=== PATIENT | female | born 1990 | race African-American/Black ===

== ENCOUNTER 2017-12-23 15:06 | Emergency (ER) | payer OTHER ==
[2017-12-23] MEDS ORDERED: ONDANSETRON 4 MG (ODT) TAB ONE (16:12)
[2017-12-23] MEDS ORDERED: IBUPROFEN 400 MG TAB ONE ×2 (16:12)
[2017-12-23 16:30] LABS: Urine Blood 1+ (NEG); Urine Glucose NEGATIVE (NEG); Urine Protein NEGATIVE (NEG); Urine Specific Gravity 1.025 (1.005-1.030)
[2017-12-23] MEDS ORDERED: DEXAMETHASONE 10 MG/ML VIAL ONE (17:15)
[2017-12-23] MEDS ORDERED: PROMETHAZINE 25 MG TABLET ONE (17:40)
--- NOTE | 2017-12-23 18:16 | ER ---
Nurse's Notes [facility] Name: Ritu Fallon Age: 27 yrs Sex: Female : 1990 Arrival Date: 12/23/2017 Time: 15:07 Bed 14 Private MD: Diagnosis: Acute pharyngitis;Cough Presentation: 12/23 15:23 Presenting complaint: Patient states: " I have been feeling really bad, I have been ph throwing up and I can't keep anything down, my throat feels swollen and I have had a bad cough.". Transition of care: patient was not received from another setting of care. Onset of symptoms was December 23, 2017. Care prior to arrival: None. 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 - Social history:: Smoking status: Patient uses tobacco products. Screenin:45 Abuse screen: Denies threats or abuse. Denies injuries from another. Nutritional aj1 screening: No deficits noted. Tuberculosis screening: No symptoms or risk factors identified. 18:29 Fall Risk None identified. aj1 Assessment: 15:45 General: Appears in no apparent distress. uncomfortable, Behavior is calm, cooperative. aj1 Pain: Complains of pain in left aspect of posterior pharynx and right aspect of posterior pharynx generalized body aches. Neuro: Level of Consciousness is awake, alert, obeys commands, Oriented to person, place, time, situation, Speech is normal, Facial symmetry appears normal. Cardiovascular: Patient's skin is warm and dry. Respiratory: Reports cough that is persistent Airway is patent Respiratory effort is even, unlabored, Respiratory pattern is regular, symmetrical, Breath sounds are clear bilaterally. GI: Abdomen is non-distended, Abd is soft X 4 quads Reports nausea, vomiting. : No signs and/or symptoms were reported regarding the genitourinary system. EENT: Reports sore throat. Derm: No signs and/or symptoms reported regarding the dermatologic system. Skin is pink, warm \\T\\ dry. normal. Musculoskeletal: No signs and/or symptoms reported regarding the musculoskeletal system. Circulation, motion, and sensation intact. 16:45 Reassessment: Patient appears in no apparent distress at this time. No changes from 1 previously documented assessment. Patient and/or family updated on plan of care and expected duration. Pain level reassessed. Patient is alert, oriented x 3, equal unlabored respirations, skin warm/dry/pink. 17:23 Reassessment: Patient appears in no apparent distress at this time. No changes from aj1 previously documented assessment. Patient and/or family updated on plan of care and expected duration. Pain level reassessed. Patient is alert, oriented x 3, equal unlabored respirations, skin warm/dry/pink. 18:28 Reassessment: Patient appears in no apparent distress at this time. No changes from aj1 previously documented assessment. Patient and/or family updated on plan of care and expected duration. Pain level reassessed. Patient is alert, oriented x 3, equal unlabored respirations, skin warm/dry/pink. Vital Signs: 15:24 Pulse 106; Resp 22; Temp 100.3; Pulse Ox 99% on R/A; Weight 129.27 kg; Pain 8/10; ph 17:44 BP 137 / 99; Pulse 95; Resp 18; Pulse Ox 97% on R/A; aj1 18:28 BP 135 / 72; Pulse 92; Resp 18; Temp 98.9; Pulse Ox 99% ; aj1 ED Course: 15:07 Patient arrived in ED. as 15:24 Triage completed. ph 15:26 Arm band placed on. ph 15:30 Doug Murrell NP is PHCP. pm1 15:30 Mamadou Pang MD is Attending Physician. pm1 15:38 Anu Marshall RN is Primary Nurse. aj1 15:45 Patient has correct armband on for positive identification. Bed in low position. Call [facility] light in reach. Side rails up X 1. 15:45 No provider procedures requiring assistance completed. aj1 16:07 Flu and/or RSV swab sent to lab. Strep swab sent to lab. dh3 16:19 Urine collected: clean catch specimen. dh3 18:29 Patient did not have IV access during this emergency room visit. aj1 Administered Medications: 16:15 Drug: Ibuprofen 800 mg Route: PO; aj1 17:22 Follow up: Response: No adverse reaction aj1 16:15 Drug: Zofran 4 mg Route: PO; aj1 17:22 Follow up: Response: No adverse reaction aj1 17:22 Drug: Decadron 10 mg Route: IM; Site: left deltoid; aj1 17:41 Follow up: Response: No adverse reaction aj1 17:41 Drug: Phenergan 25 mg Route: PO; aj1 18:30 Follow up: Response: No adverse reaction aj1 Outcome: 18:16 Discharge ordered by . pm1 18:30 Discharged to home ambulatory. aj1 18:30 Condition: good 18:30 Discharge instructions given to patient, Instructed on discharge instructions, follow up and referral plans. medication usage, Demonstrated understanding of instructions, follow-up care, medications, Prescriptions given X 3. 18:31 Patient left the ED. aj1 Signatures: Anu Marshall RN RN aj1 Alecia Eli Patricia, RN RN ph Marinas, Patrick, SARAY PROMOTIONS REPRESENTATIVE pm1 Marion Woodward 3
--- NOTE | 2017-12-23 18:17 | EDPHYS ---
Physician Documentation [facility] Name: Ritu Fallon Age: 27 yrs Sex: Female : 1990 Arrival Date: 12/23/2017 Time: 15:07 Bed 14 Private MD: ED Physician Mamadou Pang HPI: 12/23 17:00 This 27 yrs old Black Female presents to ER via Ambulatory with complaints of Sore pm1 throat, Cough, Vomiting. 17:00 The patient presents with sore throat. The patient describes throat pain as constant, pm1 scratchy. 17:00 Onset: The symptoms/episode began/occurred 2 day(s) ago. Severity of symptoms: in the pm1 emergency department the symptoms are actually worse. Modifying factors: The symptoms are alleviated by nothing, the symptoms are aggravated by fluids, foods, swallowing, Denies contact with similarly ill indivduals. Associated signs and symptoms: Pertinent positives: cough, fever, flu-like symptoms, Sore throat vomiting, Pertinent negatives chest pain, diarrhea, earache, shortness of breath. The patient has experienced similar episodes in the past, multiple times. The patient has not recently seen a physician. 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 - Social history:: Smoking status: Patient uses tobacco products. ROS: 17:00 Constitutional: Negative for fever, chills, and weight loss, Eyes: Negative for injury, pm1 pain, redness, and discharge. 17:00 Neck: Negative for injury, pain, and swelling, Cardiovascular: Negative for chest pain, palpitations, and edema. 17:00 Back: Negative for injury and pain. 17:00 : Negative for injury, bleeding, discharge, and swelling, MS/Extremity: Negative for injury and deformity, Skin: Negative for injury, rash, and discoloration, Neuro: Negative for headache, weakness, numbness, tingling, and seizure. 17:00 ENT: Positive for sore throat, Negative for ear pain, rhinorrhea, sinus congestion, sinus pain, difficulty swallowing, difficulty handling secretions, hoarseness. 17:00 Respiratory: Positive for cough, Negative for shortness of breath, sputum production, wheezing. 17:00 Abdomen/GI: Positive for vomiting, Negative for abdominal pain, diarrhea, constipation. Exam: 17:00 Constitutional: This is a well developed, well nourished patient who is awake, alert, pm1 and in no acute distress. Head/Face: Normocephalic, atraumatic. Eyes: Pupils equal round and reactive to light, extra-ocular motions intact. Lids and lashes normal. Conjunctiva and sclera are non-icteric and not injected. Cornea within normal limits. Periorbital areas with no swelling, redness, or edema. 17:00 Neck: Trachea midline, no thyromegaly or masses palpated, and no cervical lymphadenopathy. Supple, full range of motion without nuchal rigidity, or vertebral point tenderness. No Meningismus. Chest/axilla: Normal chest wall appearance and motion. Nontender with no deformity. No lesions are appreciated. Cardiovascular: Regular rate and rhythm with a normal S1 and S2. No gallops, murmurs, or rubs. Normal PMI, no JVD. No pulse deficits. Respiratory: Lungs have equal breath sounds bilaterally, clear to auscultation and percussion. No rales, rhonchi or wheezes noted. No increased work of breathing, no retractions or nasal flaring. Abdomen/GI: Soft, non-tender, with normal bowel sounds. No distension or tympany. No guarding or rebound. No evidence of tenderness throughout. Back: No spinal tenderness. No costovertebral tenderness. Full range of motion. Skin: Warm, dry with normal turgor. Normal color with no rashes, no lesions, and no evidence of cellulitis. MS/ Extremity: Pulses equal, no cyanosis. Neurovascular intact. Full, normal range of motion. 17:00 ENT: External ear(s): are unremarkable, Ear canal(s): are normal, TM's: are normal, Nose: is normal, Mouth: is normal, Posterior pharynx: Airway: normal, no evidence of obstruction, patent, Tonsils: bilaterally enlarged, with erythema, no exudate, no ulcerations, peritonsillar mass, is not appreciated, pooling of secretions, is not appreciated. 17:00 Neuro: Orientation: is normal, Motor: is normal, moves all fours. Vital Signs: 15:24 Pulse 106; Resp 22; Temp 100.3; Pulse Ox 99% on R/A; Weight 129.27 kg; Pain 8/10; ph 17:44 BP 137 / 99; Pulse 95; Resp 18; Pulse Ox 97% on R/A; aj1 18:28 BP 135 / 72; Pulse 92; Resp 18; Temp 98.9; Pulse Ox 99% ; aj1 MDM: 15:30 Patient medically screened. pm1 17:10 Data reviewed: vital signs. Data interpreted: Pulse oximetry: on room air is 99 %. pm1 Interpretation: normal. Counseling: I had a detailed discussion with the patient and/or guardian regarding: lab results. 17:10 ED course: Patient reports that she typically gets bronchitis around this time of year pm1 and is prescribed cough medications and antibiotics. If her symptoms do not improve after the medications, she follows up with her PCP. 18:14 Counseling: I had a detailed discussion with the patient and/or guardian regarding: the pm1 historical points, exam findings, and any diagnostic results supporting the discharge/admit diagnosis, the need for outpatient follow up, to return to the emergency department if symptoms worsen or persist or if there are any questions or concerns that arise at home. 12/23 15:48 Order name: Flu; Complete Time: 17:04 pm1 12/23 15:48 Order name: Strep; Complete Time: 17:04 pm1 12/23 16:20 Order name: Urine Dipstick--Ancillary (enter results); Complete Time: 17:04 ag 12/23 16:20 Order name: Urine --Ancillary (enter results); Complete Time: 17:04 ag 12/23 16:29 Order name: Throat Culture [facility] 12/23 15:48 Order name: Urine Dipstick-Ancillary (obtain specimen); Complete Time: 16:20 pm1 12/23 15:48 Order name: Urine Test (obtain specimen); Complete Time: 16:20 pm1 12/23 17:10 Order name: PO challenge; Complete Time: 17:22 pm1 Administered Medications: 16:15 Drug: Ibuprofen 800 mg Route: PO; aj1 17:22 Follow up: Response: No adverse reaction aj1 16:15 Drug: Zofran 4 mg Route: PO; aj1 17:22 Follow up: Response: No adverse reaction aj1 17:22 Drug: Decadron 10 mg Route: IM; Site: left deltoid; aj1 17:41 Follow up: Response: No adverse reaction aj1 17:41 Drug: Phenergan 25 mg Route: PO; aj1 18:30 Follow up: Response: No adverse reaction aj1 Disposition: 12/23/17 18:16 Discharged to Home. Impression: Acute pharyngitis, Cough. - Condition is Stable. - Discharge Instructions: Pharyngitis, Salt Water Gargle, Cough, Adult. - Prescriptions for Amoxicillin 500 mg Oral Capsule - take 1 capsule by ORAL route every 8 hours for 10 days; 30 tablet. Tessalon Perles 100 mg Oral Capsule - take 1 capsule by ORAL route every 8 hours As needed; 15 capsule. promethazine 25 mg Oral Tablet - take 1 tablet by ORAL route every 6 hours As needed; 20 tablet. - Medication Reconciliation Form, Thank You Letter, Antibiotic Education form. - Follow up: Emergency Department; When: As needed; Reason: Worsening of condition. Follow up: Private Physician; When: 2 - 3 days; Reason: Recheck today's complaints, Continuance of care, Re-evaluation by your physician. - Problem is new. - Symptoms have improved. Addendum: 12/25/2017 07:37 Co-signature as Attending Physician, Mamadou Pang MD I agree with the assessment and w a plan of care. Signatures: Dispatcher [employer] Anu Castro RN RN aj1 Arabella Padilla RN RN ph Marinas, Patrick, QC LAB TECHNICIAN QC LAB TECHNICIAN pm1 Mamadou Pang MD MD sd
[2017-12-23 18:38] VITALS: BP 135/72; TEMP 98.9; O2SAT 99
== END 2017-12-23 18:31 | disposition home or self-care (01) ==
LOC: ER 15:06
DX: R05 Cough (principal); Z72.0 Tobacco use; Z88.5 Allergy status to narcotic agent; Z91.048 Other nonmedicinal substance allergy status
CPT/HCPCS: 81003; 81025; 87070; 87081; 87804; 96372; 99283; J1100

== ENCOUNTER 2018-05-27 08:12 | Emergency (ER) | payer OTHER ==
--- NOTE | 2018-05-27 08:37 | ER ---
Nurse's Notes [facility] Name: Ritu Fallon Age: 28 yrs Sex: Female : 1990 Arrival Date: 05/27/2018 Time: 08:14 Bed 20 Private MD: Out, [facility] Diagnosis: Conjunctivitis Presentation: 05/27 08:30 Presenting complaint: Patient states: C/O jasmeet eye swelling x 2 days, also reports ph sensitivity to light, denies fever or drainage, states that son was dx w/ pink eye recently. Transition of care: patient was not received from another setting of care. Onset of symptoms was May 27, 2018. Risk Assessment: Do you want to hurt yourself or someone else? Patient reports no desire to harm self or others. Initial Sepsis Screen: Does the patient meet any 2 criteria? No. Patient's initial sepsis screen is negative. Does the patient have a suspected source of infection? No. Patient's initial sepsis screen is negative. Care prior to arrival: None. 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 - Social history:: Smoking status: Patient uses tobacco products, smokes one-half pack cigarettes per day. - Family history:: not pertinent. - Ebola Screening: : No symptoms or risks identified at this time. - Hospitalizations: : No recent hospitalization is reported. Screenin:35 Abuse screen: Denies threats or abuse. Denies injuries from another. Nutritional ph screening: No deficits noted. Tuberculosis screening: No symptoms or risk factors identified. Fall Risk None identified. Assessment: 08:36 General: Appears in no apparent distress. uncomfortable, obese, well groomed, Behavior ph is calm, cooperative, appropriate for age. Pain: Complains of pain in right eye and left eye. Neuro: Level of Consciousness is awake, alert, obeys commands, Oriented to person, place, time, situation. Cardiovascular: Capillary refill < 3 seconds Patient's skin is warm and dry. Respiratory: Airway is patent. GI: No signs and/or symptoms were reported involving the gastrointestinal system. EENT: Lid(s) swelling noted to jasmeet upper lids. Reports photophobia Denies blurred vision. Derm: Skin is intact, is healthy with good turgor, Skin is pink, warm \T\ dry. Musculoskeletal: Circulation, motion, and sensation intact. Range of motion: intact in all extremities. Vital Signs: 08:33 BP 134 / 95; Pulse 94; Resp 18; Temp 98.2; Pulse Ox 100% on R/A; Weight 90.72 kg; ph Height 5 ft. 7 in. (170.18 cm); 08:33 Body Mass Index 31.32 (90.72 kg, 170.18 cm) ph ED Course: 08:14 Patient arrived in ED. sb2 08:15 Out, of [facility] is Private Physician. sb2 08:25 Viktor Bardales MD is Attending Physician. rn 08:30 Arabella Padilla RN is Primary Nurse. ph 08:33 Triage completed. ph 08:35 Patient has correct armband on for positive identification. Bed in low position. Call ph light in reach. 08:35 Arm band placed on. ph 08:49 No provider procedures requiring assistance completed. Patient did not have IV access ph during this emergency room visit. Administered Medications: No medications were administered Outcome: 08:37 Discharge ordered by . rn 08:49 Discharged to home ambulatory. ph 08:49 Condition: good 08:49 Discharge instructions given to patient, Instructed on discharge instructions, follow up and referral plans. medication usage, Demonstrated understanding of instructions, follow-up care, medications. 08:50 Patient left the ED. ph Signatures: Viktor Bardales MD MD rn Hall, Patricia, RN RN Marine Isaac sb2
--- NOTE | 2018-05-27 08:37 | EDPHYS ---
Physician Documentation [facility] Name: Ritu Fallon Age: 28 yrs Sex: Female : 1990 Arrival Date: 05/27/2018 Time: 08:14 Bed 20 Private MD: Out, [facility] ED Physician Viktor Bardales HPI: 05/27 08:29 This 28 yrs old Black Female presents to ER via Unassigned with complaints of Eye rn Problem. 08:29 The patient is experiencing pain, tearing. Onset: The symptoms/episode began/occurred rn yesterday. Duration: the symptoms are continuous. Aggravated by nothing. Alleviated by nothing. Severity of symptoms: At their worst the symptoms were mild in the emergency department the symptoms are unchanged. The patient has experienced similar episodes in the past. Reports son has pink eye, being treated, now having redness and swelling of both eyes, sensitive to light, no fever, has had bronchitis for 1 month, + smoker. . 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 - Social history:: Smoking status: Patient uses tobacco products, smokes one-half pack cigarettes per day. - Family history:: not pertinent. - Ebola Screening: : No symptoms or risks identified at this time. - Hospitalizations: : No recent hospitalization is reported. ROS: 08:29 Constitutional: Negative for fever, chills, and weight loss, Eyes: + pain and redness rn with discharge ENT: Negative for injury, pain, and discharge, Neck: Negative for injury, pain, and swelling, Cardiovascular: Negative for chest pain, palpitations, and edema, Respiratory: + cough, no sob Abdomen/GI: Negative for abdominal pain, nausea, vomiting, diarrhea, and constipation, Neuro: Negative for headache, weakness, numbness, tingling, and seizure. Exam: 08:29 Visual Acuity: I have reviewed the nursing documentation. Visual acuity is within rn normal limits. 08:29 Constitutional: This is a well developed, well nourished patient who is awake, alert, and in no acute distress. Head/Face: Normocephalic, atraumatic. Eyes: Pupils equal round and reactive to light, extra-ocular motions intact. Mild edema of bilteral upper lids with mild injected sclera, no corneal defects. Vital Signs: 08:33 BP 134 / 95; Pulse 94; Resp 18; Temp 98.2; Pulse Ox 100% on R/A; Weight 90.72 kg; ph Height 5 ft. 7 in. (170.18 cm); 08:33 Body Mass Index 31.32 (90.72 kg, 170.18 cm) ph MDM: 08:25 Patient medically screened. rn 08:29 Differential diagnosis: Data reviewed: vital signs, nurses notes, and as a result, I rn will discharge patient. Counseling: I had a detailed discussion with the patient and/or guardian regarding: the historical points, exam findings, and any diagnostic results supporting the discharge/admit diagnosis, the need for outpatient follow up, to return to the emergency department if symptoms worsen or persist or if there are any questions or concerns that arise at home. Special discussion: I discussed with the patient/guardian in detail that at this point there is no indication for admission to the hospital. It is understood, however, that if the symptoms persist or worsen the patient needs to return immediately for re-evaluation. Administered Medications: No medications were administered Disposition: 05/27/18 08:37 Discharged to Home. Impression: Conjunctivitis. - Condition is Stable. - Discharge Instructions: Bacterial Conjunctivitis, Viral Conjunctivitis. - Prescriptions for Erythromycin 5 mg/gram (0.5 %) Ophthalmic Ointment - apply 1 centimeter by OPHTHALMIC route 2-3 times daily for 7 days; 1 tube. - Medication Reconciliation Form, Thank You Letter, Antibiotic Education, Prescription Opioid Use, Work release form form. - Follow up: Private Physician; When: As needed; Reason: Recheck today's complaints, Re-evaluation by your physician. - Problem is new. - Symptoms are unchanged. Signatures: Viktor Bardales MD MD rn Hall, Patricia, RN RN ph Corrections: (The following items were deleted from the chart) 08:50 08:37 05/27/2018 08:37 Discharged to Home. Impression: Conjunctivitis. Condition is ph Stable. Forms are Medication Reconciliation Form, Thank You Letter, Antibiotic Education, Prescription Opioid Use. Follow up: Private Physician; When: As needed; Reason: Recheck today's complaints, Re-evaluation by your physician. Problem is new. Symptoms are unchanged. rn
[2018-05-27 08:56] VITALS: BP 134/95; TEMP 98.2; O2SAT 100
== END 2018-05-27 08:50 | disposition home or self-care (01) ==
LOC: ER 08:12
DX: H10.9 Unspecified conjunctivitis (principal); I10 Essential (primary) hypertension; F17.210 Nicotine dependence, cigarettes, uncomplicated; Z88.5 Allergy status to narcotic agent; Z91.048 Other nonmedicinal substance allergy status
CPT/HCPCS: 99281

== ENCOUNTER 2019-10-09 16:32 | Emergency (ER) | payer OTHER, SELFPAY ==
--- OUTSIDE RECORDS SUMMARY | 2019-10-09 16:34 | XMS REPORT ---
:1990 Author Organization [facility] Address [address] [place] [address] Dr. Nelson [address] [place] [id number] Care Team Providers Name Role Phone Unavailable Unavailable Unavailable Problems This patient has no known problems. Allergies, Adverse Reactions, Alerts This patient has no known allergies or adverse reactions. Medications This patient has no known medications.
--- OUTSIDE RECORDS SUMMARY | 2019-10-09 16:34 | XMS REPORT | Summary of Care ---
:1990 Author Organization [facility] - Health Address [address] [place] [address] Care Team Providers Name Role Phone Mike Carlos Miranda [facility] Primary Care Provider Encounter Details Date Type Department Care Team Description 04/13/2019 Orders Only [facility] Doctor Unassigned, No [address] [facility] [place] [address] [address] [place] [id number] Allergies Active Allergy Reactions Severity Noted Date Comments Iodine Swelling 08/15/2013 documented as of this encounter (statuses as of 04/13/2019) Medications Medication Sig Dispensed Refills Start Date End Date Status CALCIUM CARBONATE Take by mouth. 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 Depo-Provera contraceptive status 09/17/2014 Essential hypertension, benign 09/17/2014 Depression 09/17/2014 Dysmenorrhea 09/17/2014 Obesity, morbid (more than 100 lbs over ideal weight or BMI > 40) 08/15/2013 Tobacco use disorder 08/15/2013 documented as of this encounter (statuses as of 04/13/2019) Resolved Problems Problem Noted Date Resolved Date Rubella immune 08/18/2013 09/17/2014 documented as of this encounter (statuses as of 04/13/2019) Immunizations Name Administration Dates Next Due HPV 08/29/2014 Td 09/14/2002 Tdap 08/15/2013 documented as of this encounter Social History Tobacco Use Types Packs/Day Years Used Date Current Every Day Smoker Cigarettes 0.5 1 Smokeless Tobacco: Never Used Alcohol Use Drinks/Week oz/Week Comments Yes socially Sex Assigned at Date Recorded Not on file Job Start Date Occupation Industry Not on file Not on file Not on file Travel History Travel Start Travel End No recent travel history available. documented as of this encounter Last Filed Vital Signs Not on filedocumented in this encounter Plan of Treatment Date Type Specialty Care Team Description 04/13/2019 Office Visit [facility] Carlos Mckeon, ASP NET DEVELOPER [address] [place] [address] [phone] Arrived 4, [facility] Health Maintenance Due Date Last Done Comments VARICELLA VACCINES (1 of 2 - 2002 13+ 2-dose series) PAP SMEAR 08/15/2016 08/15/2013 INFLUENZA VACCINE 05/15/2019 DTaP,Tdap,and Td Vaccines (3 08/15/2023 08/15/2013, - Td) 09/14/2002 PNEUMOCOCCAL 0-64 YEARS Aged Out No longer eligible based COMBINED SERIES on patient's age to complete this topic documented as of this encounter Procedures Procedure Name Priority Date/Time Associated Diagnosis Comments NOTICE OF PRIVACY Routine 04/13/2019 9:38 AM CDT PRACTICES documented in this encounter Results Not on filedocumented in this encounter Insurance Payer Benefit Plan / Subscriber ID Effective Dates Phone Address Type Group [place] [facility] [place] CH[place]DRENS xxxxxxxxx 2015-Presen Medicaid HEALTH PLAN - [employer] MANAGED MEDICAID documented as of this encounter
--- OUTSIDE RECORDS SUMMARY | 2019-10-09 16:35 | XMS REPORT | Summary of Care ---
:1990 Author Organization [facility] Address [address] [place] [address] Care Team Providers Name Role Phone Carlos Mckeon AEROLOGIST Primary Care Provider Reason for Referral Radiology Services (Routine) Status Reason Specialty Diagnoses / Referred By Referred To Procedures Contact Contact New Request Diagnostic Diagnoses Nipple discharge Mike, Radiology Procedures BI ULTRASOUND BREAST COMPLETE RIGHT Carlos Miranda, AEROLOGIST [address] [place] [address] Reason for Visit Reason Comments Orders Right Breast USG Encounter Details Date Type Department Care Team Description 04/28/2019 Case Management [facility]- Carlos Mckeon Orders ( Right Breast [place] Ruth, AEROLOGIST USG) [address] [facility] [address] [facility] [address] [place], [place] [id number] Allergies Active Allergy Reactions Severity Noted Date Comments Iodine Swelling 08/15/2013 documented as of this encounter (statuses as of 04/28/2019) Medications Medication Sig Dispensed Refills Start Date End Date Status CALCIUM CARBONATE Take by mouth. 0 Active (CALCIUM 600 ORAL) documented as of this encounter (statuses as of 04/28/2019) Active Problems Problem Noted Date Need for HPV vaccination 09/17/2014 Encounter for routine gynecological examination 09/17/2014 Overview: ICD10 Diagnosis Term Vice President Quality Utility General counseling and advice for contraceptive management 09/17/2014 Overview: ICD10 Diagnosis Term Vice President Quality Utility Depo-Provera contraceptive status 09/17/2014 Essential hypertension, benign 09/17/2014 Depression 09/17/2014 Dysmenorrhea 09/17/2014 Obesity, morbid (more than 100 lbs over ideal weight or BMI > 40) 08/15/2013 Tobacco use disorder 08/15/2013 documented as of this encounter (statuses as of 04/28/2019) Resolved Problems Problem Noted Date Resolved Date Rubella immune 08/18/2013 09/17/2014 documented as of this encounter (statuses as of 04/28/2019) Immunizations Name Administration Dates Next Due HPV 08/29/2014 Td 09/14/2002 Tdap 08/15/2013 documented as of this encounter Social History Tobacco Use Types Packs/Day Years Used Date Current Every Day Smoker Cigarettes 0.5 1 Started: 04/13/2014 Smokeless Tobacco: Never Used Alcohol Use Drinks/Week oz/Week Comments Yes socially Alcohol Habits Answer Date Recorded How often do you have a drink containing alcohol? Not asked How many drinks containing alcohol do you have on a typical 1 or 2 04/13/2019 day when you are drinking? How often do you have six or more drinks on one occasion? Not asked Sex Assigned at Date Recorded Not on file Job Start Date Occupation Industry Not on file Not on file Not on file Travel History Travel Start Travel End No recent travel history available. documented as of this encounter Last Filed Vital Signs Not on filedocumented in this encounter Plan of Treatment Name Type Priority Associated Diagnoses Order Schedule BI ULTRASOUND BREAST IMAGING Routine Nipple discharge Expected: 04/28/2019, COMPLETE RIGHT Expires: 06/28/2020 Health Maintenance Due Date Last Done Comments PNEUMOCOCCAL 0-64 YEARS COMBINED SERIES (1 1995 of 1 - PPSV23) VARICELLA VACCINES (1 of 2 - 13+ 2-dose 2002 series) PAP SMEAR 08/15/2016 08/15/2013 INFLUENZA VACCINE (#1) 2019 DTaP,Tdap,and Td Vaccines (3 - Td) 08/15/2023 08/15/2013, 09/14/2002 documented as of this encounter Results Not on filedocumented in this encounter Visit Diagnoses Diagnosis Nipple discharge - Primary Other sign and symptom in breast documented in this encounter Insurance Payer Benefit Plan / Subscriber ID Effective Dates Phone Address Type Group [place] [facility] xxxxxxxxx 2015-[place] Medicaid HEALTH PLAN - [employer] MANAGED MEDICAID documented as of this encounter Advance Directives Name Relationship Healthcare Agent Relationship Communication Hung Dellemmy Father Second alternate healthcare agent
--- OUTSIDE RECORDS SUMMARY | 2019-10-09 16:35 | XMS REPORT | Summary of Care ---
:1990 Author Organization [facility] Address [address] [place] [address] Care Team Providers Name Role Phone Carlos Mckeon SHEET METAL OPERATOR Primary Care Provider Reason for Visit Reason Comments Breast Problem both leaking Encounter Details Date Type Department Care Team Description [facility]/13[facility], Breast [facility] (Primary Dx) [address] [facility] [address] [facility] [address] [place], [place] [address] Allergies Active Allergy Reactions Severity Noted Date [...] gynecological examination 09/17/2014 Overview: ICD10 Diagnosis Term Senior Front End Engineer Utility General counseling and advice for contraceptive management 09/17/2014 Overview: ICD10 Diagnosis Term Senior Front End Engineer Utility Depo-Provera contraceptive status 09/17/2014 Essential [...] 1 Started: 04/13/2014 Smokeless Tobacco: Never Used Tobacco Cessation: Ready to Quit: No; Counseling Given: Yes Alcohol Use Drinks/Week oz/Week Comments Yes socially [...] of this encounter Last Filed Vital Signs Vital Sign Reading Time Taken Comments Blood Pressure 119/82 04/13/2019 10:10 AM CDT Pulse 94 04/13/2019 10:10 AM CDT Temperature 37.2 C (99 F) 04/13/2019 10:10 AM CDT Respiratory Rate 16 04/13/2019 10:10 AM CDT Oxygen Saturation - - Inhaled Oxygen Concentration - - Weight 134.4 kg (296 lb 6 oz) 04/13/2019 10:10 AM CDT Height 170.2 cm (5' 7") 04/13/2019 10:10 AM CDT Body Mass Index 46.42 04/13/2019 10:10 AM CDT documented in this encounter Progress Notes Carlos Mckeon, ELAINE - 04/13/2019 9:15 AM CDT Chief complaint: Chief Complaint Patient presents with Breast Problem both leaking HPI Patient is here for breast leakage. Patient reported she had bilateral nipple discharge for 1 week. Patient reports white milky discharge and clear discharge noted in shower and while palpating breast. Patient denies any other complaints. Patient denies taking any BCM at this time. Histories OB History Para Term AB Living 2 1 1 1 1 SAB TAB Ectopic Multiple Live Births 1 # Outcome Date GA Lbr Keith/2nd Weight Sex Delivery Anes PTL Lv 2 Term 10/14/07 40w0d M CS-Unspec 1 SAB Past Medical History: Diagnosis Date Depression 2018 denies si/hi Dysmenorrhea 09/17/2014 Genital herpes 2018 Not on meds Hypertension 2016 Not on meds Tobacco use disorder 08/15/2013 Family History Problem Relation Age of Onset Breast Cancer Maternal Aunt Cancer Maternal Grandmother lung and liver No Significant Medical Problems Mother Kidney failure Father Depression Sister Arthritis NoFHx Asthma NoFHx defects NoFHx Colon Cancer NoFHx Ovarian Cancer NoFHx Uterine Cancer NoFHx Diabetes NoFHx Genetic NoFHx Heart NoFHx High cholesterol NoFHx Hypertension NoFHx Mental retardation NoFHx Neurological NoFHx Osteoporosis NoFHx Psychiatry NoFHx Other - see comments NoFHx Family Status Relation Name Status MAunt Alive MGMo Mo Alive Fa Alive Sis Alive NoFHx (Not Specified) Past Surgical History: Procedure Laterality Date SECTION 2007 CHOLECYSTECTOMY 2011 Social History Socioeconomic History Marital status: Single Spouse name: Not on file Number of children: Not on file Years of education: Not on file Highest education level: Not on file Occupational History Not on file Social Needs Financial resource strain: Not on file Food insecurity: Worry: Not on file Inability: Not on file Transportation needs: Medical: Not on file Non-medical: Not on file Tobacco Use Smoking status: Current Every Day Smoker Packs/day: 0.50 Years: 1.00 Pack years: 0.50 Types: Cigarettes Start date: 04/13/2014 Smokeless tobacco: Never Used Substance and Sexual Activity Alcohol use: Yes Drinks per session: 1 or 2 Comment: socially Drug use: No Sexual activity: Yes Partners: Male control/protection: None Comment: Last intercourse: 03/30/2019 Lifestyle Physical activity: Days per week: Not on file Minutes per session: Not on file Stress: Not on file Relationships Social connections: Talks on phone: Not on file Gets together: Not on file Attends mormonism service: Not on file Active member of club or organization: Not on file Attends meetings of clubs or organizations: Not on file Relationship status: Not on file Intimate partner violence: Fear of current or ex partner: Not on file Emotionally abused: Not on file Physically abused: Not on file Forced sexual activity: Not on file Other Topics Concern Not on file Social History Narrative Patient lives with mom and children. Patient feels safe at home. Social History Substance and Sexual Activity Sexual Activity Yes Partners: Male control/protection: None Comment: Last intercourse: 03/30/2019 Labs No new labs Radiology No new radiology. Allergies Ritu is allergic to iodine. Medications Ritu has a current medication list which includes the following prescription( s): calcium carbonate. Review of Systems Breasts: Positive for discharge. BP 119/82 (BP Location: Right arm, Patient Position: Sitting, BP CUFF SIZE: Adult Large) | Pulse 94 | Temp 37.2 C (99 F) (Oral) | Resp 16 | Ht 5' 7" (1.702 m) | Wt 296 lb 6 oz (134.4 kg) | LMP 04/06/2019 (Exact Date) | BMI 46.42 kg/m Pregravid BMI: Could not be calculated Physical Exam Vitals reviewed. Constitutional: She is oriented to person, place, and time. She appears well- developed and well-nourished. Her body habitus is normal. Cardiovascular: Regular rate and rhythm. No peripheral edema present. Pulmonary/Chest: Normal inspiratory effort. Neuro/Psychiatric: Inappropriate mood and affect. She is oriented to person, place, and time. Skin: Skin normal. No lesion, no rash and no ulceration present. Breast: Right breast exhibits nipple discharge. Right breast exhibits no mass and no tenderness. Left breast exhibits no mass, no nipple discharge and no tenderness. Breasts are symmetrical. Very small amount of discharge noted from right breast with deep palpation and squeezing only. Assessment/Plan Breast discharge (primary encounter diagnosis) Comment: see physical exam. Plan: will awaiting for further testing. Return to clinic in 1 weeks. Discussed treatment options. Medications as ordered. Reviewed patient instructions and provided printed copy. This visit did not involve counseling and coordination that comprised more than 50% of the visit time. ELAINE Godwin 04/13/2019 12:50 PM Julián Peterson RN - 04/13/2019 9:15 AM CDT29 year old presents to the clinic for breast issue. 1) Previous BCM: none 2) Desired BCM: none 3) LMP: 04/06/2019 4) Last [place]: 03/30/2019 5) Last Pap: 2018 @ [place], [place] Results: Negative, no cotest done per patient report. Patient due for pap smear, advised patient to apply for HTW. 6) Tdap: 2012 7) Gardasil: 1 in 2013 8) C/O: Bilateral breast leakage 9) Patient denies history of physical, emotional, or sexual abuse. Patient states that she currently feels safe at home. JULIÁN AWAD RN 04/13/2019 10:28 AM documented in this encounter Plan of Treatment Health Maintenance Due Date Last Done Comments VARICELLA VACCINES (1 of 2 - 2002 13+ 2-dose series) PAP SMEAR 08/15/2016 08/15/2013 INFLUENZA VACCINE 05/15/2019 DTaP,Tdap,and Td Vaccines (3 08/15/2023 08/15/2013, - Td) 09/14/2002 PNEUMOCOCCAL 0-64 YEARS Aged Out No longer eligible based COMBINED SERIES on patient's age to complete this topic documented as of this encounter Results Not on filedocumented in this encounter Visit Diagnoses Diagnosis Breast discharge - Primary Other sign and symptom in breast documented in this encounter Advance Directives Name Relationship Healthcare Agent Relationship Communication Hung Morales Father Second alternate healthcare agent
--- OUTSIDE RECORDS SUMMARY | 2019-10-09 16:35 | XMS REPORT | Summary of Care ---
:1990 Author Organization [facility] Address [address] [place] [address] Care Team Providers Name Role Phone Carlos MckeonP Primary Care Provider Reason for Referral Radiology Services (Routine) Status Reason Specialty Diagnoses / Referred By Referred To Procedures Contact Contact New Request Diagnostic Diagnoses Breast discharge Mike, Radiology Procedures BI DIAGNOSTIC MAMMOGRAM BILATERAL ELAINE Espinoza [address] [place] [address] Reason for Visit Reason Comments Orders Encounter Details Date Type Department Care Team Description 04/25/2019 Case Management [facility]- Carlos Mckeon Orders [facility] [address] [facility] [address] [place] [address] [place] [address] [phone] Allergies Active Allergy Reactions Severity Noted Date Comments Iodine Swelling 08/15/2013 documented as of this encounter (statuses as of 04/25/2019) Medications Medication Sig Dispensed Refills Start Date End Date Status CALCIUM CARBONATE Take by mouth. 0 Active (CALCIUM 600 ORAL) documented as of this encounter (statuses as of 04/25/2019) Active Problems Problem Noted Date Need for HPV vaccination 09/17/2014 Encounter for routine gynecological examination 09/17/2014 Overview: ICD10 Diagnosis Term Toys Inspector Utility General counseling and advice for contraceptive management 09/17/2014 Overview: ICD10 Diagnosis Term Toys Inspector Utility Depo-Provera contraceptive status 09/17/2014 Essential hypertension, benign 09/17/2014 Depression 09/17/2014 Dysmenorrhea 09/17/2014 Obesity, morbid (more than 100 lbs over ideal weight or BMI > 40) 08/15/2013 Tobacco use disorder 08/15/2013 documented as of this encounter (statuses as of 04/25/2019) Resolved Problems Problem Noted Date Resolved Date Rubella immune 08/18/2013 09/17/2014 documented as of this encounter (statuses as of 04/25/2019) Immunizations Name Administration Dates Next Due HPV [...] Type Priority Associated Diagnoses Order Schedule BI DIAGNOSTIC MAMMOGRAM IMAGING Routine Breast discharge Expected: 2018, BILATERAL Expires: 06/25/2020 Health Maintenance Due Date Last Done Comments PNEUMOCOCCAL 0-64 YEARS COMBINED SERIES (1 1995 of 1 - PPSV23) VARICELLA VACCINES (1 of 2 - 13+ 2-dose 2002 series) PAP SMEAR 08/15/2016 08/15/2013 INFLUENZA VACCINE 05/15/2019 DTaP,Tdap,and Td Vaccines (3 - Td) 08/15/2023 08/15/2013, 09/14/2002 documented as of this encounter Results Not on filedocumented in this encounter Visit Diagnoses Diagnosis Breast discharge - Primary Other sign and symptom in breast documented in this encounter Insurance Payer Benefit Plan / Subscriber ID Effective Dates Phone Address Type Group [place] [facility] [place] CHILDRENS xxxxxxxxx 2015-[employer] Medicaid HEALTH PLAN - [employer] MANAGED MEDICAID documented as of this encounter Advance Directives Name Relationship Healthcare Agent Relationship Communication Hung Morales Father Second alternate healthcare agent [phone] (Net[employer])
--- OUTSIDE RECORDS SUMMARY | 2019-10-09 16:35 | XMS REPORT | Summary of Care ---
:[address] [facility] Address [address] [place] [address] Care Team Providers Name Role Phone Carlos Mckeon CLOTH DESIZING RANGE TENDER Primary Care Provider Reason for Visit Reason Comments Breast Problem both leaking Encounter Details Date Type Department Care Team Description [facility] (Primary Dx) [address] [facility] [address] [facility] [address] [place], [place] [address] Allergies Active Allergy Reactions Severity Noted Date [...] gynecological examination 09/17/2014 Overview: ICD10 Diagnosis Term Canceling And Cutting Control Clerk Utility General counseling and advice for contraceptive management 09/17/2014 Overview: ICD10 Diagnosis Term Canceling And Cutting Control Clerk Utility Depo-Provera contraceptive status 09/17/2014 Essential hypertension, [...] file Gets together: Not on file Attends islam service: Not on file Active member of [...] BCM: none 3) LMP: 04/06/2019 4) Last [place]: 03/30/2019 5) Last Pap: 2018 @ [place], [place] Results: Negative, no cotest done per [...]
--- OUTSIDE RECORDS SUMMARY | 2019-10-09 16:35 | XMS REPORT | Summary of Care ---
:1990 Author Organization [facility] Address [address] [place] [address] Care Team Providers Name Role Phone Carlos Mckeon [facility] Primary Care Provider Reason for Visit Reason Comments Breast Problem Encounter Details Date Type Department Care Team Description 04/22/2019 Case Management [facility]- Carlos Mckeon, Breast Problem [facility] [address] [facility] [address] [place] [address] [place], [place] [address] Allergies Active Allergy Reactions Severity Noted Date Comments Iodine Swelling 08/15/2013 documented as of this encounter (statuses as of 04/22/2019) Medications Medication Sig Dispensed Refills Start Date End Date Status CALCIUM CARBONATE Take by mouth. 0 Active (CALCIUM 600 ORAL) documented as of this encounter (statuses as of 04/22/2019) Active Problems Problem Noted Date Need for HPV vaccination 09/17/2014 Encounter for routine gynecological examination 09/17/2014 Overview: ICD10 Diagnosis Term Bootmaker Hand Utility General counseling and advice for contraceptive management 09/17/2014 Overview: ICD10 Diagnosis Term Bootmaker Hand Utility Depo-Provera contraceptive status 09/17/2014 Essential hypertension, benign 09/17/2014 Depression 09/17/2014 Dysmenorrhea 09/17/2014 Obesity, morbid (more than 100 lbs over ideal weight or BMI > 40) 08/15/2013 Tobacco use disorder 08/15/2013 documented as of this encounter (statuses as of 04/22/2019) Resolved Problems Problem Noted Date Resolved Date Rubella immune 08/18/2013 09/17/2014 documented as of this encounter (statuses as of 04/22/2019) Immunizations Name Administration Dates Next Due HPV [...] filedocumented in this encounter Plan of Treatment Health [...] ID Effective Dates Phone Address Type Group [place] [facility] xxxxxxxxx 2015-[employer] Medicaid HEALTH PLAN - [employer] MANAGED MEDICAID documented as of this encounter Advance Directives Name Relationship Healthcare Agent Relationship Communication Hung Morales Father Second alternate healthcare agent
--- OUTSIDE RECORDS SUMMARY | 2019-10-09 16:36 | XMS REPORT | Summary of Care ---
:1990 Author Organization [facility] - [facility] Address [address] [place] [address] Care Team Providers Name Role Phone Mike Carlos Miranda [facility] Primary Care Provider Encounter Details Date Type Department Care Team Description 05/03/2019 Orders Only [facility] Doctor Unassigned, No [address] [facility] [place] [address] [address] [place] [phone] Allergies Active Allergy Reactions Severity Noted Date Comments Iodine Swelling 08/15/2013 documented as of this encounter (statuses as of 05/03/2019) Medications Medication Sig Dispensed Refills Start Date End Date Status CALCIUM CARBONATE Take by mouth. 0 Active (CALCIUM 600 ORAL) documented as of this encounter (statuses as of 05/03/2019) Active Problems Problem Noted Date Need for HPV vaccination 09/17/2014 Encounter for routine gynecological examination 09/17/2014 Overview: ICD10 Diagnosis Term Kick Plate Installer Utility General counseling and advice for contraceptive management 09/17/2014 Overview: ICD10 Diagnosis Term Kick Plate Installer Utility Depo-Provera contraceptive status 09/17/2014 Essential hypertension, benign 09/17/2014 Depression 09/17/2014 Dysmenorrhea 09/17/2014 Obesity, morbid (more than 100 lbs over ideal weight or BMI > 40) 08/15/2013 Tobacco use disorder 08/15/2013 documented as of this encounter (statuses as of 05/03/2019) Resolved Problems Problem Noted Date Resolved Date Rubella immune 08/18/2013 09/17/2014 documented as of this encounter (statuses as of 05/03/2019) Immunizations Name Administration Dates Next Due HPV [...] Treatment Date Type Specialty Care Team Description 05/05/2019 Appointment Radiology Carlos Mckeon, WEALTH MANAGEMENT DIRECTOR [address] [place] [address] [phone] Health Maintenance Due Date Last Done Comments PNEUMOCOCCAL 0-64 YEARS COMBINED SERIES (1 1995 of 1 - PPSV23) VARICELLA VACCINES (1 of 2 - 13+ 2-dose 2002 series) PAP SMEAR 08/15/2016 08/15/2013 INFLUENZA VACCINE (#1) 2019 DTaP,Tdap,and Td Vaccines (3 - Td) 08/15/2023 08/15/2013, 09/14/2002 documented as of this encounter Procedures Procedure Name Priority Date/Time Associated Diagnosis Comments BCCS-RELATED Routine 05/03/2019 12:01 AM DOCUMENTATION CDT documented in this encounter Results Not on filedocumented in this encounter Insurance Payer Benefit Plan / Subscriber ID Effective Dates Phone Address Type Group [facility] CHILDRENS xxxxxxxxx 2015-Presen Medicaid HEALTH PLAN - HEALTH MANAGED MEDICAID documented as of this encounter Advance Directives Name Relationship Healthcare Agent Relationship Communication Hung Morales Father Second alternate healthcare agent
--- OUTSIDE RECORDS SUMMARY | 2019-10-09 16:36 | XMS REPORT | Summary of Care ---
:1990 Author Organization [facility] Address [address] [place] [address] Care Team Providers Name Role Phone MikeAriamsudha Miranda SENIOR INSIGHT MANAGER INTERNATIONAL Primary Care Provider Reason for Referral Radiology Services (Routine) Status Reason Specialty Diagnoses / Referred By Referred To Procedures Contact Contact Closed Diagnostic Diagnoses Breast discharge Airam Mckeonndcorina Radiology Procedures BI DIAGNOSTIC MAMMOGRAM BILATERAL R, SENIOR INSIGHT MANAGER INTERNATIONAL [address] [place] [address] Radiology Services (Routine) Status Reason Specialty Diagnoses / Referred By Referred To Procedures Contact Contact Closed Diagnostic Diagnoses Breast discharge Mckeon, Airamnda Radiology Procedures BI DIAGNOSTIC MAMMOGRAM BILATERAL R, SENIOR INSIGHT MANAGER INTERNATIONAL [address] [place] [address] Reason for Visit Radiology Services (Routine) Status Reason Specialty Diagnoses / Referred By Referred To Procedures Contact Contact Closed Diagnostic Diagnoses Breast discharge Airam Mckeonnda Radiology Procedures BI DIAGNOSTIC MAMMOGRAM BILATERAL R, SENIOR INSIGHT MANAGER INTERNATIONAL [address] [place] [address] Encounter Details Date Type Department Care Team Description 05/24/2019 Hospital Encounter [facility] Breast Carlos Mckeon, Arrived Imaging SENIOR INSIGHT MANAGER INTERNATIONAL [address] [place] [phone] Allergies Active Allergy Reactions Severity Noted Date Comments Iodine Swelling 08/15/2013 documented as of this encounter (statuses as of 05/25/2019) Medications Medication Sig Dispensed Refills Start Date End Date Status CALCIUM CARBONATE Take by mouth. 0 Active (CALCIUM 600 ORAL) documented as of this encounter (statuses as of 05/25/2019) Active Problems Problem Noted Date Need for HPV vaccination 09/17/2014 Encounter for routine gynecological examination 09/17/2014 Overview: ICD10 Diagnosis Term Trustee Of Estate Utility General counseling and advice for contraceptive management 09/17/2014 Overview: ICD10 Diagnosis Term Trustee Of Estate Utility Depo-Provera contraceptive status 09/17/2014 Essential hypertension, benign 09/17/2014 Depression 09/17/2014 Dysmenorrhea 09/17/2014 Obesity, morbid (more than 100 lbs over ideal weight or BMI > 40) 08/15/2013 Tobacco use disorder 08/15/2013 documented as of this encounter (statuses as of 05/25/2019) Resolved Problems Problem Noted Date Resolved Date Rubella immune 08/18/2013 09/17/2014 documented as of this encounter (statuses as of 05/25/2019) Immunizations Name Administration Dates Next Due HPV [...] encounter Procedures Procedure Name Priority Date/Time Associated Comments Diagnosis BI DIAGNOSTIC Routine 05/24/2019 11:28 AM Breast discharge Results for this MAMMOGRAM BILATERAL CDT procedure are in the results section. documented in this encounter Results BI DIAGNOSTIC MAMMOGRAM BILATERAL (05/24/2019 11:28 AM CDT) Specimen Narrative Performed At Examination: PACS BI DIAGNOSTIC MAMMOGRAM BILATERAL BI ULTRASOUND BREAST LIMITED BILATERAL History: Patient is 29 year old and is seen for:Breast discharge.No relevant hormone history has been documented for this patient. No relevant surgical history has been documented for this patient. No relevant medical history has been documented for this patient. Computer-aided detection (CAD) utilized. Comparisons : None available Findings: The breasts have scattered areas of fibroglandular density. Right RIGHT MAMMOGRAM: There is a 7 mm focal asymmetry in the central right breast, middle depth, 7 cm from the nipple (best seen on the RMCC, RLM and RMLM views). No subareolar abnormalities are identified to correlate with the patient's history of breast discharge. ULTRASOUND BREAST LIMITED BILATERAL There is a 3 x 2 mm intraductal, echogenic, oval mass with circumscribed margins seen in the right breast at 9 o'clock in the subareolar breast. No associated abnormal vascularity is identified. No sonographic correlate is identified in the central right breast, 7 cm from the nipple, to correlate with the mammographic findings. Left BI DIAGNOSTIC MAMMOGRAM BILATERAL There is a 6 mm focal asymmetry seen in the left breast at 6 o'clock, middle depth, 6 cm from the nipple (best seen on the LML, LMLM, and LCC views). ULTRASOUND BREAST LIMITED BILATERAL No sonographic correlate is identified in the 6:00 axis of the left breast, 6 cm from the nipple to correlate with the mammographic findings. Ultrasound of the subareolar left breast is unremarkable. Impression: Right: 1. There is a 3 x 2 mm intraductal, echogenic, oval mass with circumscribed margins seen in the right breast at 9 o'clock in the subareolar breast.Since the patient reports a history has bilateral white/clear spontaneous nipple discharge, ultrasound-guided biopsy of this mass (if it persists) is recommended for further evaluation.BIRADS 4A 2. There is a 7 mm focal asymmetry in the central right breast, middle depth, 7 cm from the nipple (best seen on the RMCC, RLM and RMLM views). There is no sonographic correlate.Short interval follow-up mammogram is recommended in 6 months to document stability. BIRADS 3 Left: 3. There is a 6 mm focal asymmetry seen in the left breast at 6 o'clock, middle depth, 6 cm from the nipple (best seen on the LML, LMLM, and LCC views).There is no sonographic correlate.Short interval follow-up mammogram is recommended in 6 months to document stability. BIRADS 3 Recommendation: Short interval follow-up mammogram 6 months - Right Short interval follow-up mammogram 6 months - Left Ultrasound guided core biopsy- Right BI-RADS Category: Left 3 - Probably Benign Right 4A - Suspicious Abnormality - Biopsy Should Be Considered - Low Suspicion for Malignancy Performing Organization Address City/State/Zipcode Phone Number PACS documented in this encounter Visit Diagnoses Diagnosis Breast discharge Other sign and symptom in breast documented in this encounter Advance Directives Name Relationship Healthcare Agent Relationship Communication Hung Morales Father Second alternate healthcare agent
--- OUTSIDE RECORDS SUMMARY | 2019-10-09 16:36 | XMS REPORT | Summary of Care ---
:1990 Author Organization [facility] - [facility] Address [address] [place] [address] Care Team Providers Name Role Phone Carlos Mckeon REPAIRER EVAPORATOR Primary Care Provider Reason for Visit Radiology Services (Routine) Status Reason Specialty Diagnoses / Referred By Referred To Procedures Contact Contact Closed Diagnostic Diagnoses Nipple discharge Carlos Mckeon Radiology Procedures BI ULTRASOUND BREAST LIMITED BILATERAL BI ULTRASOUND BREAST COMPLETE RIGHT R, REPAIRER EVAPORATOR [address] [place] [address] Encounter Details Date Type Department Care Team Description 05/24/[address] [facility] Breast Carlos Mckeon, Arrived Imaging REPAIRER EVAPORATOR [address] [place] [phone] Allergies Active Allergy Reactions Severity Noted Date [...] gynecological examination 09/17/2014 Overview: ICD10 Diagnosis Term Roll Edge Stitcher Hand Utility General counseling and advice for contraceptive management 09/17/2014 Overview: ICD10 Diagnosis Term Roll Edge Stitcher Hand Utility Depo-Provera contraceptive status 09/17/2014 Essential [...] Name Priority Date/Time Associated Comments Diagnosis BI ULTRASOUND BREAST Routine 05/24/2019 12:36 PM Nipple discharge Results for this LIMITED BILATERAL CDT procedure are in the results section. documented in this encounter Results BI ULTRASOUND BREAST LIMITED BILATERAL (05/24/2019 12:36 PM CDT) Specimen Narrative Performed At Examination: PACS [...] documented in this encounter Visit Diagnoses Diagnosis Nipple discharge Other sign and symptom in breast documented in this encounter Advance Directives Name Relationship Healthcare Agent Relationship Communication Hung Morales Father Second alternate healthcare agent
--- OUTSIDE RECORDS SUMMARY | 2019-10-09 16:36 | XMS REPORT | Summary of Care ---
:1990 Author Organization [facility] - [facility] Address [address] [place] [address] Care Team Providers Name Role Phone Mike Carlos Miradna [facility] Primary Care Provider Encounter Details Date Type Department Care Team Description 05/12/2019 Orders Only [facility] Doctor Unassigned, No [address] [facility] [place] [address] [address] [place] [phone] Allergies Active Allergy Reactions Severity Noted Date Comments Iodine Swelling 08/15/2013 documented as of this encounter (statuses as of 05/12/2019) Medications Medication Sig Dispensed Refills Start Date End Date Status CALCIUM CARBONATE Take by mouth. 0 Active (CALCIUM 600 ORAL) documented as of this encounter (statuses as of 05/12/2019) Active Problems Problem Noted Date Need for HPV vaccination 09/17/2014 Encounter for routine gynecological examination 09/17/2014 Overview: ICD10 Diagnosis Term It Infrastructure Manager Utility General counseling and advice for contraceptive management 09/17/2014 Overview: ICD10 Diagnosis Term It Infrastructure Manager Utility Depo-Provera contraceptive status 09/17/2014 Essential hypertension, benign 09/17/2014 Depression 09/17/2014 Dysmenorrhea 09/17/2014 Obesity, morbid (more than 100 lbs over ideal weight or BMI > 40) 08/15/2013 Tobacco use disorder 08/15/2013 documented as of this encounter (statuses as of 05/12/2019) Resolved Problems Problem Noted Date Resolved Date Rubella immune 08/18/2013 09/17/2014 documented as of this encounter (statuses as of 05/12/2019) Immunizations Name Administration Dates Next Due HPV [...] Treatment Date Type Specialty Care Team Description 05/24/2019 Appointment Radiology Carlos Mckeon FNP [address] [place] [address] 05/24/2019 Appointment Radiology Carlos Mckeon FNP [address] [place] [address] Health Maintenance Due Date Last Done Comments PNEUMOCOCCAL 0-64 YEARS COMBINED SERIES (1 1995 of 1 - PPSV23) VARICELLA VACCINES (1 of 2 - 13+ 2-dose 2002 series) PAP SMEAR 08/15/2016 08/15/2013 INFLUENZA VACCINE (#1) 2019 DTaP,Tdap,and Td Vaccines (3 - Td) 08/15/2023 08/15/2013, 09/14/2002 documented as of this encounter Procedures Procedure Name Priority Date/Time Associated Diagnosis Comments BCCS-RELATED Routine 05/12/2019 12:01 AM DOCUMENTATION CDT documented in this encounter Results Not on filedocumented in this encounter Insurance Payer Benefit Plan / Subscriber ID Effective Dates Phone Address Type Group [facility] xxxxxxxxx 2015-Pres[place] Medicaid HEALTH PLAN - HEALTH MANAGED MEDICAID documented as of this encounter Advance Directives Name Relationship Healthcare Agent Relationship Communication Hung Morales Father Second alternate healthcare agent
--- OUTSIDE RECORDS SUMMARY | 2019-10-09 16:36 | XMS REPORT | Summary of Care ---
:1990 Author Organization [facility] Address [address] [place] [address] Care Team Providers Name Role Phone Carlos Mckeon NURSE INFECTION CONTROL Primary Care Provider Reason for Visit Reason Comments MAMMOGRAM Encounter Details Date Type Department Care Team Description 05/12/2019 Telephone [facility]- InezCarlos Ledesma, NURSE INFECTION CONTROL MAMMOGRAM [address] [facility] [address] [place] [phone] [place], [place] [address] Allergies Active Allergy Reactions Severity Noted Date [...] gynecological examination 09/17/2014 Overview: ICD10 Diagnosis Term Last Dipper Utility General counseling and advice for contraceptive management 09/17/2014 Overview: ICD10 Diagnosis Term Last Dipper Utility Depo-Provera contraceptive status 09/17/2014 Essential hypertension, [...] Care Team Description 05/24/2019 Appointment Radiology Carlos Mckeon, ELAINE [address] [place] [address] 05/24/2019 Appointment Radiology Carlos Mckeon NURSE INFECTION CONTROL [address] [place] [address] Health Maintenance Due Date Last Done Comments [...] ID Effective Dates Phone Address Type Group [place] [facility] [place] CHILDRENS xxxxxxxxx 2015-Presen Medicaid HEALTH PLAN - [facility] MANAGED MEDICAID documented as of this encounter Advance Directives Name Relationship Healthcare Agent Relationship Communication Hung Morales Father Second alternate healthcare agent
--- OUTSIDE RECORDS SUMMARY | 2019-10-09 16:36 | XMS REPORT | Summary of Care ---
:1990 Author Organization [facility] - [facility] Address [address] [place] [address] Care Team Providers Name Role Phone Mike Carlos Miranda [facility] Primary Care Provider Encounter Details Date Type Department Care Team Description 04/27/2019 Orders Only [facility] Doctor Unassigned, No [address] [facility] [place] [address] [address] [place] [phone] Allergies Active Allergy Reactions Severity Noted Date Comments Iodine Swelling 08/15/2013 documented as of this encounter (statuses as of 05/13/2019) Medications Medication Sig Dispensed Refills Start Date End Date Status CALCIUM CARBONATE Take by mouth. 0 Active (CALCIUM 600 ORAL) documented as of this encounter (statuses as of 05/13/2019) Active Problems Problem Noted Date Need for HPV vaccination 09/17/2014 Encounter for routine gynecological examination 09/17/2014 Overview: ICD10 Diagnosis Term Curator Of Manuscripts Utility General counseling and advice for contraceptive management 09/17/2014 Overview: ICD10 Diagnosis Term Curator Of Manuscripts Utility Depo-Provera contraceptive status 09/17/2014 Essential hypertension, benign 09/17/2014 Depression 09/17/2014 Dysmenorrhea 09/17/2014 Obesity, morbid (more than 100 lbs over ideal weight or BMI > 40) 08/15/2013 Tobacco use disorder 08/15/2013 documented as of this encounter (statuses as of 05/13/2019) Resolved Problems Problem Noted Date Resolved Date Rubella immune 08/18/2013 09/17/2014 documented as of this encounter (statuses as of 05/13/2019) Immunizations Name Administration Dates Next Due HPV [...] Appointment Radiology Carlos Mckeon FNP [address] [place] [address] 05/24/2019 Appointment Radiology Carlos Mckeon FNP [address] [place] [address] Health Maintenance Due Date Last Done Comments PNEUMOCOCCAL 0-64 YEARS COMBINED SERIES (1 1995 of 1 - PPSV23) VARICELLA VACCINES (1 of 2 - 13+ 2-dose 2002 series) PAP SMEAR 08/15/2016 08/15/2013 INFLUENZA VACCINE (#1) 2019 DTaP,Tdap,and Td Vaccines (3 - Td) 08/15/2023 08/15/2013, 09/14/2002 documented as of this encounter Procedures Procedure Name Priority Date/Time Associated Diagnosis Comments BCCS-RELATED Routine 04/27/2019 12:01 AM DOCUMENTATION CDT documented in this encounter Results Not on filedocumented in this encounter Insurance Payer Benefit Plan / Subscriber ID Effective Dates Phone Address Type Group [facility] CHILDRENS xxxxxxxxx 2015-Pres[place] Medicaid HEALTH PLAN - HEALTH MANAGED MEDICAID documented as of this encounter Advance Directives Name Relationship Healthcare Agent Relationship Communication Hung Morales Father Second alternate healthcare agent
--- OUTSIDE RECORDS SUMMARY | 2019-10-09 16:37 | XMS REPORT | Summary of Care ---
:1990 Author Organization [facility] - [facility] Address [address] [place] [address] Care Team Providers Name Role Phone Carlos Mckeon IMPREGNATION OPERATOR Primary Care Provider Reason for Referral Radiology Services (Routine) Status Reason Specialty Diagnoses / Referred By Referred To Procedures Contact Contact New Request Diagnostic Diagnoses Mammogram abnormal Mike, Radiology Procedures BI US GUIDED CORE BREAST BIOPSY RIGHT Carlos Miranda IMPREGNATION OPERATOR [address] [place] [address] Reason for Visit Reason Comments Abnormal Lab Abnormal Mammogram Encounter Details Date Type Department Care Team Description 05/25/2019 Telephone [facility]- Carlos Mckeon, Abnormal Lab ( Abnormal [facility] Mammogram ) [address] [facility] [address] [place], [place] [phone] Allergies Active Allergy Reactions Severity Noted Date [...] gynecological examination 09/17/2014 Overview: ICD10 Diagnosis Term Kennel Assistant Utility General counseling and advice for contraceptive management 09/17/2014 Overview: ICD10 Diagnosis Term Kennel Assistant Utility Depo-Provera contraceptive status 09/17/2014 Essential hypertension, [...] Type Priority Associated Diagnoses Order Schedule BI US GUIDED CORE IMAGING Routine Mammogram abnormal Expected: 05/25/2019, BREAST BIOPSY RIGHT Expires: 07/25/2020 Health Maintenance Due Date Last Done Comments PNEUMOCOCCAL 0-64 YEARS COMBINED SERIES (1 1995 of 1 - PPSV23) VARICELLA VACCINES (1 of 2 - 13+ 2-dose 2002 series) PAP SMEAR 08/15/2016 08/15/2013 INFLUENZA VACCINE (#1) 2019 DTaP,Tdap,and Td Vaccines (3 - Td) 08/15/2023 08/15/2013, 09/14/2002 documented as of this encounter Results Not on filedocumented in this encounter Visit Diagnoses Diagnosis Mammogram abnormal - Primary Abnormal mammogram, unspecified documented in this encounter Insurance Payer Benefit Plan / Subscriber ID Effective Dates Phone Address Type Group [place] [facility] [place] CHILDRENS xxxxxxxxx 2015-[employer] Medicaid HEALTH PLAN - [facility] MANAGED MEDICAID documented as of this encounter Advance Directives Name Relationship Healthcare Agent Relationship Communication Hung Morales Father Second alternate healthcare agent
--- OUTSIDE RECORDS SUMMARY | 2019-10-09 16:37 | XMS REPORT | Summary of Care ---
:1990 Author Organization [facility] - [facility] Address [address] [place] [address] Care Team Providers Name Role Phone Carlos Mckeon SLITTER AND REWINDER Primary Care Provider Reason for Referral Radiology Services (Routine) Status Reason Specialty Diagnoses / Referred By Referred To Procedures Contact Contact New Request Diagnostic Diagnoses Mammogram abnormal Mike, Radiology Procedures BI US GUIDED CORE BREAST BIOPSY RIGHT Carlos Miranda SLITTER AND REWINDER [address] [place] [address] Reason for Visit Reason Comments Abnormal Lab Abnormal Mammogram Encounter Details Date Type Department Care Team Description 05/25/2019 Telephone [facility]- Carlos Mckeon, Abnormal Lab ( Abnormal [facility] Mammogram ) [address] [facility] [address] [place], [place] [phone] Allergies Active Allergy Reactions Severity Noted [...] gynecological examination 09/17/2014 Overview: ICD10 Diagnosis Term Religion Instructor Utility General counseling and advice for contraceptive management 09/17/2014 Overview: ICD10 Diagnosis Term Religion Instructor Utility Depo-Provera contraceptive status 09/17/2014 Essential hypertension, [...] ID Effective Dates Phone Address Type Group [place] [facility] [place] CHILDRENS xxxxxxxxx 2015-[employer]en Medicaid HEALTH PLAN - [facility] MANAGED MEDICAID documented as of this encounter Advance Directives Name Relationship Healthcare Agent Relationship Communication Hung Morales Father Second alternate healthcare agent
--- OUTSIDE RECORDS SUMMARY | 2019-10-09 16:37 | XMS REPORT | Summary of Care ---
:1990 Author Organization [facility] - [facility] Address [address] [place] [address] Care Team Providers Name Role Phone Carlos Mckeon PREPARED FOODS SUPERVISOR Primary Care Provider Reason for Referral Radiology Services (Routine) Status Reason Specialty Diagnoses / Referred By Referred To Procedures Contact Contact New Request Diagnostic Diagnoses Mammogram abnormal Mike, Radiology Procedures BI US GUIDED CORE BREAST BIOPSY RIGHT Carlos Miranda PREPARED FOODS SUPERVISOR [address] [place] [address] Reason for Visit Reason Comments Abnormal Lab Abnormal Mammogram Encounter Details Date Type Department Care Team Description 05/25/2019 Telephone [facility]- Carlos Mckeon, Abnormal Lab ( Abnormal [facility] Mammogram ) [address] [facility] [address] [place], [place] [phone] Allergies Active Allergy Reactions Severity Noted [...] gynecological examination 09/17/2014 Overview: ICD10 Diagnosis Term Grails Web Application Developer Utility General counseling and advice for contraceptive management 09/17/2014 Overview: ICD10 Diagnosis Term Grails Web Application Developer Utility Depo-Provera contraceptive status 09/17/2014 Essential hypertension, [...] ID Effective Dates Phone Address Type Group [place] [facility] [place] [facility]DRENS xxxxxxxxx 2015-[employer] Medicaid HEALTH PLAN - [facility] MANAGED MEDICAID documented as of this encounter Advance Directives Name Relationship Healthcare Agent Relationship Communication Hung Morales Father Second alternate healthcare agent
--- NOTE | 2019-10-09 17:55 | RAD REPORT ---
EXAM DESCRIPTION: Fabio Mac (2 Views)10/09/2019 5:43 pm CLINICAL HISTORY: Cough COMPARISON: 2014 FINDINGS: The lungs appear clear of acute infiltrate. The heart is normal size IMPRESSION: No acute abnormalities displayed
--- NOTE | 2019-10-09 18:37 | ER ---
Nurse's Notes [facility] Name: Ritu Fallon Age: 29 yrs Sex: Female : 1990 Arrival Date: 10/09/2019 Time: 16:37 Bed 6 Private MD: Diagnosis: Streptococcal pharyngitis;Bronchitis, not specified as acute or chronic Presentation: 10/09 16:57 Presenting complaint: Patient states: cough, congestion for a week. fever and sore ss throat for 2 days. Transition of care: patient was not received from another setting of care. Onset of symptoms was October 02, 2019. Risk Assessment: Do you want to hurt yourself or someone else? Patient reports no desire to harm self or others. Initial Sepsis Screen: Does the patient meet any 2 criteria? No. Patient's initial sepsis screen is negative. Does the patient have a suspected source of infection? No. Patient's initial sepsis screen is negative. Care prior to arrival: None. 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 - Coronavirus screen:: The patient has NOT traveled to [place], [place], or [place] in the past 14 days. Proceed with normal triage process as indicated. The patient has NOT had contact with known/suspected case of Coronavirus? Proceed with normal triage procedures. - Social history:: Smoking status: Patient reports the use of cigarette tobacco products, smokes one-half pack cigarettes per day. - Ebola Screening: : Patient negative for fever greater than or equal to 101.5 degrees Fahrenheit, and additional compatible Ebola Virus Disease symptoms Patient denies exposure to infectious person Patient denies travel to an Ebola-affected area in the 21 days before illness onset No symptoms or risks identified at this time. Screenin:20 Abuse screen: Denies threats or abuse. Denies injuries from another. Nutritional jl7 screening: No deficits noted. Tuberculosis screening: No symptoms or risk factors identified. Fall Risk None identified. Assessment: 18:20 General: Appears in no apparent distress. uncomfortable, Behavior is calm, cooperative, jl7 appropriate for age. Pain: Complains of pain in sore throat Pain currently is 7 out of 10 on a pain scale. Neuro: Level of Consciousness is awake, alert, obeys commands, Oriented to person, place, time, situation. Cardiovascular: Patient's skin is warm and dry. Respiratory: Airway is patent Respiratory effort is even, unlabored, Respiratory pattern is regular, symmetrical, Breath sounds are clear bilaterally. EENT: Throat is reddened has enlarged tonsils. 19:15 Reassessment: Patient and/or family updated on plan of care and expected duration. Pain ea level reassessed. General: Appears uncomfortable, Behavior is appropriate for age. Pain: Complains of pain in sore throat. Neuro: Level of Consciousness is awake, alert, obeys commands, Oriented to person, place, time, situation. Cardiovascular: Patient's skin is warm and dry. Respiratory: Airway is patent Respiratory effort is even, unlabored, Respiratory pattern is regular, symmetrical. Derm: Skin is pink, warm \T\ dry. 19:15 Reassessment: Patient and/or family updated on plan of care and expected duration. Pain ea level reassessed. Patient is alert, oriented x 3, equal unlabored respirations, skin warm/dry/pink. Discharge instruction given to patient, verbalized the understanding of instruction. Pt left ED ambulatory tolerating well. Vital Signs: 16:59 BP 134 / 88; Pulse 108; Resp 20; Temp 98.2; Pulse Ox 99% ; Weight 129.27 kg; Height 5 ss ft. 7 in. (170.18 cm); Pain 7/10; 18:20 BP 130 / 89; Pulse 99; Resp 19 S; Pulse Ox 100% on R/A; jl7 16:59 Body Mass Index 44.64 (129.27 kg, 170.18 cm) ss ED Course: 16:37 Patient arrived in ED. as 16:58 Triage completed. ss 16:59 Arm band placed on right wrist. ss 17:32 Chest Pa And Lat (2 Views) XRAY In Process Unspecified. EDMS 17:37 Haven Masterson FNP-C [facility]. snw 17:37 Scott Richard MD is Attending Physician. snw 18:20 Patient has correct armband on for positive identification. Bed in low position. Call jl7 light in reach. Side rails up X 1. 18:20 No provider procedures requiring assistance completed. Patient did not have IV access jl7 during this emergency room visit. 18:32 Zara Sanchez, RN is Primary Nurse. jl7 Administered Medications: 18:57 Drug: Decadron - Dexamethasone 10 mg Route: IVP; Site: Other; jl7 19:17 Follow up: Response: No adverse reaction jl7 19:23 Follow up: Response: No adverse reaction ea 18:57 Drug: GI Cocktail without - (Maalox Suspension 30 ml, Lidocaine Liquid 2 % 15 jl7 ml) Route: PO; 19:17 Follow up: Response: No adverse reaction jl7 19:23 Follow up: Response: No adverse reaction ea 18:58 Drug: Bicillin L-A 1.2 million units Route: IM; Site: right gluteus; jl7 19:23 Follow up: Response: No adverse reaction ea Outcome: 18:37 Discharge ordered by . leo 19:22 Discharged to home ambulatory. ea 19:22 Condition: stable 19:22 Discharge instructions given to patient, Instructed on discharge instructions, follow up and referral plans. medication usage, Demonstrated understanding of instructions, follow-up care, medications, Prescriptions given X 4. 19:22 Patient left the ED. ea Signatures: Dispatcher [employer] EDMS Haven Masterson, ELAINE-C BINGO FLOATER-Alecia Malagon Shelby, RN RN ss Leal, Jahala, RN Kimmy Jeong RN RN ea
--- NOTE | 2019-10-09 18:37 | EDPHYS ---
Physician Documentation [facility] Name: Ritu Fallon Age: 29 yrs Sex: Female : 1990 Arrival Date: 10/09/2019 Time: 16:37 Bed 6 Private MD: ED Physician Scott Richard HPI: 10/10 03:49 This 29 yrs old Black Female presents to ER via Ambulatory with complaints of Sore snw Throat, Headache, Cough. 03:49 The patient presents with sore throat. The patient describes throat pain as scratchy. snw Onset: The symptoms/episode began/occurred 1 week(s) ago, and became persistent. Severity of symptoms: At their worst the symptoms were moderate. Associated signs and symptoms: Pertinent positives: cough, fever, flu-like symptoms, Sore throat. Just treated for Bronchitis. as noted. 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 - Coronavirus screen:: The patient has NOT traveled to [place], [place], or [place] in the past 14 days. Proceed with normal triage process as indicated. The patient has NOT had contact with known/suspected case of Coronavirus? Proceed with normal triage procedures. - Social history:: Smoking status: Patient reports the use of cigarette tobacco products, smokes one-half pack cigarettes per day. - Ebola Screening: : Patient negative for fever greater than or equal to 101.5 degrees Fahrenheit, and additional compatible Ebola Virus Disease symptoms Patient denies exposure to infectious person Patient denies travel to an Ebola-affected area in the 21 days before illness onset No symptoms or risks identified at this time. ROS: 10/10 03:49 Eyes: Negative for injury, pain, redness, and discharge. snw Neck: Negative for injury, pain, and swelling, Cardiovascular: Negative for chest pain, palpitations, and edema, Abdomen/GI: Negative for abdominal pain, nausea, vomiting, diarrhea, and constipation, Back: Negative for injury and pain, : Negative for injury, bleeding, discharge, and swelling, MS/Extremity: Negative for injury and deformity, Skin: Negative for injury, rash, and discoloration, Neuro: Negative for headache, weakness, numbness, tingling, and seizure. Constitutional: Positive for body aches, fever, malaise, poor PO intake. ENT: Positive for ear pain, sinus congestion, sore throat. Respiratory: Positive for cough, with no reported sputum. Exam: 10/09 19:16 Head/Face: Normocephalic, atraumatic. Eyes: Pupils equal round and reactive to light, snw extra-ocular motions intact. Lids and lashes normal. Conjunctiva and sclera are non-icteric and not injected. Cornea within normal limits. Periorbital areas with no swelling, redness, or edema. Neck: Trachea midline, no thyromegaly or masses palpated, and no cervical lymphadenopathy. Supple, full range of motion without nuchal rigidity, or vertebral point tenderness. No Meningismus. Chest/axilla: Normal chest wall appearance and motion. Nontender with no deformity. No lesions are appreciated. Cardiovascular: Regular rate and rhythm with a normal S1 and S2. No gallops, murmurs, or rubs. Normal PMI, no JVD. No pulse deficits. Abdomen/GI: Soft, non-tender, with normal bowel sounds. No distension or tympany. No guarding or rebound. No evidence of tenderness throughout. Constitutional: The patient appears alert, awake, obese, uncomfortable. ENT: TM's: erythema, that is mild, on the right, Examination of the other ear shows no obvious abnormality, Nose: is normal, Mouth: is normal, Posterior pharynx: Tonsils: are normal in appearance, swelling, is not appreciated, erythema, that is moderate, Voice: is normal. Respiratory: the patient does not display signs of respiratory distress, Respirations: normal, Breath sounds: are clear throughout, bronchitic cough. Vital Signs: 16:59 BP 134 / 88; Pulse 108; Resp 20; Temp 98.2; Pulse Ox 99% ; Weight 129.27 kg; Height 5 ss ft. 7 in. (170.18 cm); Pain 7/10; 18:20 BP 130 / 89; Pulse 99; Resp 19 S; Pulse Ox 100% on R/A; jl7 16:59 Body Mass Index 44.64 (129.27 kg, 170.18 cm) ss MDM: 17:04 Patient medically screened. kb 10/10 03:51 Data reviewed: vital signs, nurses notes. Data interpreted: Pulse oximetry: on room air snw is 100 %. Interpretation: normal. Counseling: I had a detailed discussion with the patient and/or guardian regarding: the historical points, exam findings, and any diagnostic results supporting the discharge/admit diagnosis, the presence of at least one elevated blood pressure reading (>120/80) during this emergency department visit, lab results, radiology results, the need for outpatient follow up, to return to the emergency department if symptoms worsen or persist or if there are any questions or concerns that arise at home. Special discussion: I have referred the patient to see his PCP for further evaluation of high blood pressure. Based on the history and exam findings, there is no indication for further emergent testing or inpatient evaluation. I discussed with the patient/guardian the need to see the primary care provider for further evaluation of the symptoms. 10/09 17:01 Order name: Flu; Complete Time: 17:52 ss 10/09 17:01 Order name: Strep; Complete Time: 17:52 ss 10/09 17:01 Order name: Chest Pa And Lat (2 Views) XRAY; Complete Time: 17:59 ss Administered Medications: 10/09 18:57 Drug: Decadron - Dexamethasone 10 mg Route: IVP; Site: Other; jl7 19:17 Follow up: Response: No adverse reaction jl7 19:23 Follow up: Response: No adverse reaction ea 18:57 Drug: GI Cocktail without - (Maalox Suspension 30 ml, Lidocaine Liquid 2 % 15 jl7 ml) Route: PO; 19:17 Follow up: Response: No adverse reaction jl7 19:23 Follow up: Response: No adverse reaction ea 18:58 Drug: Bicillin L-A 1.2 million units Route: IM; Site: right gluteus; jl7 19:23 Follow up: Response: No adverse reaction ea Disposition: 10/10 09:59 Co-signature as Attending Physician, Scott Richard MD I agree with the assessment and kdr plan of care. Disposition: 10/09/19 18:37 Discharged to Home. Impression: Streptococcal pharyngitis, Bronchitis, not specified as acute or chronic. - Condition is Stable. - Discharge Instructions: Acute Bronchitis, Adult, Hypertension, Sore Throat, Strep Throat, Rehydration, Adult. - Prescriptions for Tessalon Perles 100 mg Oral Capsule - take 1 capsule by ORAL route every 8 hours As needed; 15 capsule. Prednisone 20 mg Oral Tablet - take 2 tablet by ORAL route once daily for 5 days; 10 tablet. Albuterol Sulfate 90 mcg/actuation - inhale 1-2 puff by INHALATION route every 4-6 hours; 1 Inhaler. promethazine 25 mg Oral Tablet - take 1 tablet by ORAL route every 6 hours As needed; 20 tablet. - Work release form, Medication Reconciliation Form, Thank You Letter, Antibiotic Education, Prescription Opioid Use form. - Follow up: Emergency Department; When: As needed; Reason: Worsening of condition. Follow up: Private Physician; When: 2 - 3 days; Reason: Recheck today's complaints, Continuance of care, Re-evaluation by your physician. Signatures: Dispatcher [employer] EDMS Stacy Prado, EXPENDITURE REQUISITION CLERK-C EXPENDITURE REQUISITION CLERK-Ckb Scott Richard MD MD [facility] Haven Masterson EXPENDITURE REQUISITION CLERK-C EXPENDITURE REQUISITION CLERK-CsnNy Thompson RN RN ss Zara Sanchez RN RN jl7 Kimmy Marquez RN RN ea Corrections: (The following items were deleted from the chart) 10/09 19:22 18:37 10/09/2019 18:37 Discharged to Home. Impression: Streptococcal pharyngitis; ea Bronchitis, not specified as acute or chronic. Condition is Stable. Forms are Medication Reconciliation Form, Thank You Letter, Antibiotic Education, Prescription Opioid Use. Follow up: Emergency Department; When: As needed; Reason: Worsening of condition. Follow up: Private Physician; When: 2 - 3 days; Reason: Recheck today's complaints, Continuance of care, Re-evaluation by your physician. snw
[2019-10-09] MEDS ORDERED: dexAMETHasone 10 MG/ML VIAL ONE (18:42)
[2019-10-09] MEDS ORDERED: LIDOCAINE VISCOUS 2% SOLN 15 ML UDC ONE (18:42)
[2019-10-09] MEDS ORDERED: MAGNE/ALUM HYDROXD 30 ML UCUP ONE (18:42)
[2019-10-09] MEDS ORDERED: PEN G BENZ LA 1.2MU/2ML SYRINGE IM ONE (18:43)
[2019-10-09 19:29] VITALS: TEMP 98.2
[2019-10-09 19:30] VITALS: BP 130/89; O2SAT 100
== END 2019-10-09 19:22 | disposition home or self-care (01) ==
LOC: ER 16:32
DX: J02.0 Streptococcal pharyngitis (principal); J40 Bronchitis, not specified as acute or chronic; Z91.09 Other allergy status, other than to drugs and biological substances; Z88.6 Allergy status to analgesic agent; F17.210 Nicotine dependence, cigarettes, uncomplicated
CPT/HCPCS: 71046; 87081; 87804; 96372; 96374; 99283; J0561; J1100

== ENCOUNTER 2024-01-05 09:01 | Day surgery (SDC) | payer OTHER ==
[2024-01-05 09:25] LABS: Platelets 488 thou/uL (152-406)
[2024-01-05] MEDS ORDERED: IBUPROFEN 400 MG TAB ONE (10:19)
[2024-01-05 12:24] VITALS: BMI 46.5
[2024-01-05 12:55] VITALS: BP 171/86; TEMP 97; O2SAT 98
[2024-01-05 18:05] LABS: PT Prothrombin Time 11.4 SECONDS (9.5-12.5)
== END 2024-01-05 11:48 | disposition home or self-care (01) ==
LOC: DS 09:01
PROVIDERS: ATTEND Family Medicine
DX: H47.11 Papilledema associated with increased intracranial pressure (principal)
CPT/HCPCS: 36415; 85049; 85610; 85730

== ENCOUNTER 2024-01-12 08:45 | Day surgery (SDC) | payer OTHER ==
[2024-01-12] MEDS: DIAZEPAM 5 MG TABLET ONE ×2 (09:53→09:54)
[2024-01-12] MEDS: HYDROCODONE/APAP 7.5/325 MG TAB ONE (13:00)
[2024-01-12 14:24] VITALS: BP 154/96; TEMP 97.7; O2SAT 100; BMI 46.5
== END 2024-01-12 12:45 | disposition home or self-care (01) ==
LOC: DS 08:45
PROVIDERS: ATTEND Family Medicine
DX: H47.11 Papilledema associated with increased intracranial pressure (principal); Z53.8 Procedure and treatment not carried out for other reasons
CPT/HCPCS: 77003; 81025

== ENCOUNTER 2024-12-05 22:51 | Emergency (ER) | payer OTHER ==
--- OUTSIDE RECORDS SUMMARY | 2024-12-05 22:58 | XMS REPORT | Continuity of Care Document ---
Author Name Unknown Address [address] [facility] [address] [place] [address] [facility] Address [address] [facility] [address] [place] [address] Care Team Providers Care Waterproof Material Folder Name Role Phone Celina Vásquez Primary Care Physician [id number] Doctor Unassigned, [place] Attending Clinician U navailable Doctor Unassigned, [place] Attending Clinician U navailable RADIOLOGY Attending Clinician Unavailable Radiology Attending Clinician Unavailable JOEY FRYE Attending Clinician Unavailable JOEY FRYE Attending Clinician Unavailable GLADYS RUBIN Attending Clinician Unavail able Nurse, Christopher Rmchp Exp Cprit Obgyn Attending Clini yosef Unavailable Gladys Marquez Attending Clinician + Chris Gomes Attending Clinician [phone] Mike TRAILER MECHANIC, Carlos Miranda Attending Clinician + [phone] Leonor Moeller MD Attending Clinician [phone] ELONOR MOELLER Attending Clinician Unavailable Visit, Ang-Rmchp Nurse Attending Clinician Unava ilable CARLOS SHEETS Attending Clinician Unavailab ana laura Maguire RN, Sarika Attending Clinician Unavailable SHAWN HARLEY Attending Clinician Unavailcroina Harley MD, Shawn Reddy Attending Clinician [phone] Mike MICHEL, Morenita Rivers Attending Clinician [phone] Valentin Hartley MD, Jf Attending Clinician + [phone] Mirian MICHEL, Anu Mueller Attending Clinician [phone] CHRIS ROBERSON Attending Clinician Unavailabl LACHO Mckay Attending Clinician Unavailable David MICHEL, Lacho Trevino Attending Clinician [phone] Cass WATTS, Harika Rivers Attending Clinician Unavailable ALEXX GOODWIN Attending Clinician Unavail able Provider, Christopher-Rmchp Temp Attending Clinician Dipika vailable Alexx Cameron Attending Clinician + Lab, Christopher-Rmchp Attending Clinician Unavailable Ultrasound, Ang-Mfm Attending Clinician UnavailPreston Dao MD Attending Clinician [phone] Risk, Udu-Dxvcr-Rq/High Attending Clinician Unav ailable Audrey Mills Attending Clinician [phone] LIBBY DENTON Admitting Clinician Unavailable LEONOR MOELLER Admitting Clinician Unavailable Leonor Moeller MD Admitting Clinician [phone] SHAWN HARLEY Admitting Clinician Unavailcorina Harley MD, Shawn Reddy Admitting Clinician [phone] LACHO YUNG Admitting Clinician Unavailable David MICHEL, Lacho Trevino Admitting Clinician [phone] Payers Payer Name Policy Type Policy Number Effective Date Expirati on Date Source [place]ICA[place] [id number] 2021 00:00:00 MEDICAID PENDING PENDING 2021 00:00:00 [facility] JOSIANE KUMAR [id number] 2019 00:00:00 Problems Condition Name Condition Details Condition Category Status Onset Date Resolution Date Last Treatment Date Treating Clinician Comments Source Pre-eclamp sanjuana superimpos ed on chronic hypertensi on, Pre-eclamp sanjuana superimpos ed on chronic hypertensi on, Disease Active 09-28 00:00: 00 [facility] Upper respirator y tract infection due to COVID-19 virus Upper respirator y tract infection due to COVID-19 virus Disease Active 09-28 00:00: 00 [facility] Preeclamps ia in period Preeclamps ia in period Disease Active 09-27 00:00: 00 [facility] Hypertensi on in , delivered with condition Hypertensi on in , delivered with condition Disease Active 09-27 00:00: 00 [facility] Nicotine dependence Nicotine dependence Disease Active 09-27 00:00: 00 [facility] 37 weeks gestation of 37 weeks gestation of Disease Active 09-18 00:00: 00 [facility] Uterine contractio ns Uterine contractio ns Disease Active 2020-09 00:00: 00 [facility] Anemia, antepartum , third trimester Anemia, antepartum , third trimester Disease Active 2020-09 00:00: 00 [facility] Anemia, antepartum , third trimester Anemia, antepartum , third trimester Disease Active 2020-09 00:00: 00 [facility] Abnormal maternal glucose tolerance, antepartum Abnormal maternal glucose tolerance, antepartum Disease Active 2020-09 00:00: 00 [facility] Tubal ligation status Tubal ligation status Disease Active 2020-09 00:00: 00 [facility] Back pain affecting in second trimester Back pain affecting in second trimester Disease Active 2020-09 00:00: 00 [facility] Urinary tract infection in mother during first trimester of Urinary tract infection in mother during first trimester of Disease Active 02-08 00:00: 00 [facility] Susceptibl e to varicella (non-immun e), currently Susceptibl e to varicella (non-immun e), currently Disease Active 02-06 00:00: 00 [facility] Obesity affecting , antepartum Obesity affecting , antepartum Disease Active 02-05 00:00: 00 [facility] Previous delivery affecting , antepartum Previous delivery affecting , antepartum Disease Active 02-05 00:00: 00 [facility] Multiparit y Multiparit y Disease Active 02-05 00:00: 00 [facility] Supervisio n of high risk in third trimester Supervisio n of high risk in third trimester Disease Active 02-05 00:00: 00 [facility] Tobacco use, maternal, third trimester Tobacco use, maternal, third trimester Disease Active 2012-09 00:00: 00 [facility] Nausea and vomiting during prior to 22 weeks gestation Nausea and vomiting during prior to 22 weeks gestation Disease Resolve d 03-06 00:00: 00 2021-07-19 00:00:00 2021-07-19 10:09:05 [facility] BMI 45.0-49.9, adult BMI 45.0-49.9, adult Disease Resolve d 03-06 00:00: 00 2021-07-19 00:00:00 2021-07-19 10:09:05 [facility] Nausea and vomiting during prior to 22 weeks gestation Nausea and vomiting during prior to 22 weeks gestation Disease Resolve d 03-06 00:00: 00 2021-07-19 00:00:00 2021-07-19 10:09:05 [facility] Obesity, morbid (more than 100 lbs over ideal weight or BMI > 40) Obesity, morbid (more than 100 lbs over ideal weight or BMI > 40) Disease Resolve d 2012-09 00:00: 2021-07-19 00:00:00 2021-07-19 10:09:11 [facility] Need for HPV vaccinatio n Need for HPV vaccinatio n Disease Resolve d 09-17 00:00: 00 2021-02-05 00:00:00 2021-02-05 13:40:02 [facility] General counseling and advice for contracept clarence management General counseling and advice for contracept clarenec management Disease Resolve d 09-17 00:00: 00 2021-02-05 00:00:00 2022-03-30 00:33:49 [facility] Depo-Prove ra contracept clarence status Depo-Prove ra contracept clarence status Disease Resolve d 09-17 00:00: 00 2021-02-05 00:00:00 2021-02-05 13:40:03 [facility] Essential hypertensi on, benign Essential hypertensi on, benign Disease Resolve d 09-17 00:00: 00 2021-02-05 00:00:00 2021-02-05 14:18:25 [facility] Depression Depression Disease Resolve d 09-17 00:00: 00 2021-02-05 00:00:00 2021-02-05 14:17:55 [facility] Dysmenorrh ea Dysmenorrh ea Disease Resolve d 09-17 00:00: 00 2021-02-05 00:00:00 2021-02-05 13:39:56 [facility] Rubella immune Rubella immune Disease Resolve d 2012-09 00:00: 00 2014-09-17 00:00:00 2014-09-17 15:27:17 [facility] Allergies, Adverse Reactions, Alerts Allergy Name Allergy Type Status Severity Reaction(s) Onset Date Inactive Date Treating Clinician Comments Source hydrocod one Propensi ty to adverse reaction to drug Active 03-01 00:00: 00 Jero Rodgers Iodine Strong - Oral Propensi ty to adverse reaction to drug Active 05-16 00:00: 00 Jero Rodgers Iodine Propensi ty to adverse reaction to drug Inactiv e 2016-0 12 00:00: 00 Jero Rodgers Iodine Propensi ty to adverse reaction s Active Swelling 2012-09 00:00: 00 [facility] IODINE DRUG INGREDI Active Swelling 2012-09 00:00: 00 [facility] Social History Social Habit Start Date Stop Date Quantity Comments Source ASSERTION 2021-01-15 00:00:00 [facility] History of tobacco use 2014-04-13 00:00:00 Cigarette Smoker [facility] History SDOH Alcohol Comment [facility] SDOH Alcohol Frequency [facility] History SDOH Alcohol Binge [facility] Exposure to SARS-CoV-2 (event) 2022-08-01 00:00:00 2022-08-11 13:52:00 Not sure [facility] Alcoholic beverage intake 2022-08-11 00:00:00 2022-08-11 00:00:00 Ex-drinker (finding) [facility] History of Social function 2022-08-11 00:00:00 2022-08-11 00:00:00 [facility] Cigarettes smoked current (pack per day) - Reported 2022-08-11 00:00:00 2022-08-11 00:00:00 [facility] Cigarette pack-years 2022-08-11 00:00:00 2022-08-11 00:00:00 [facility] Tobacco use and exposure 2022-08-11 00:00:00 2022-08-11 00:00:00 Smokeless tobacco non-user [facility] Alcohol intake 2022-08-11 00:00:00 2022-08-11 00:00:00 Ex-drinker (finding) [facility] Education 2021-09-18 00:00:00 2021-09-18 00:00:00 13 [facility] History SDOH Alcohol Std Drinks 2019-04-13 00:00:00 2019-04-13 00:00:00 1 [facility] Sex assigned at 1990 00:00:00 1990 00:00:00 [facility] Smoking Status Start Date Stop Date Source Smokes tobacco daily 2022-08-11 00:00:00 [facility] Medications Ordered Medication Name Filled Medication Name Start Date Stop Date Current Medication? Ordering Clinician Indication Dosage Frequency Signature (SIG) Comments Components Source nicotine 21mg/24hr-1 4mg/24hr-7m g/24hr daily transderm patches,seq uentl 03-30 00:00: 00 Yes mg/24 hr Jero Rodgers chlorthalid one 25 mg tablet 03-30 00:00: 00 Yes 1mg Jero Rodgers naproxen 500 mg tablet 03-01 00:00: 00 Yes 1mg Jero Rodgers amoxicillin 875 mg-potassiu isabelle clavulanate 125 mg tablet 03-01 00:00: 00 Yes 1mg Jero Rodgers chlorthalid one 25 mg tablet 03-01 00:00: 00 Yes 1mg Jero Rodgers cyclobenzap rine 5 mg tablet 01-12 00:00: 00 Yes 1mg Jero Rodgers TAKE 1 TABLET BY MOUTH THREE TIMES A DAY NEEDED FOR PAIN 01-12 00:00: 00 Yes 800 Jero Rodgers ibuprofen 800 mg tablet 01-12 00:00: 00 Yes 1mg Jero Rodgers TAKE 1 TABLET EVERY 8 HOURS WITH FOOD. 06-01 00:00: 00 01-18 00:00 :00 No 800 Jero Rodgers TAKE 1 TABLET TWICE DAILY WITH FOOD. 06-01 00:00: 00 01-18 00:00 :00 No [id number] Jero Rodgers BROM/PSE/DM SYP 01-09 00:00: 00 Yes Jero Rodgers APPLY SPARINGLY IN EYE 4 TIMES A DAY. - 00:00: 00 01-18 00:00 :00 No 5 Jero Rodgers TAKE 1 TABLET BY MOUTH EVERY 8 HOURS NEEDED - 00:00: 00 01-18 00:00 :00 No 800 Jero Rodgers TAKE 1 TABLET 3 TIMES DAILY. - 00:00: 00 01-18 00:00 :00 No 750 Jero Rodgers TAKE 1 TABLET BY MOUTH EVERY DAY 2021-09 00:00: 00 Yes 10 Jero Rodgers TAKE 1 TABLET BY MOUTH EVERY 6 HOURS NEEDED FOR PAIN 2021-09 00:00: 00 Yes Jero Rodgers CYCLOBENZAP R TAB 10MG 2021-09 00:00: 00 Yes 10 Jero Rodgers TAKE 1 TABLET BY MOUTH EVERY DAY 2021-09 00:00: 00 Yes 25 Jero Rodgers TAKE 1 TABLET BY MOUTH TWICE A DAY 2021-09 00:00: 00 Yes 325 Jero Rodgers NICOTINE TD DIS 14MG/24H 2021-09 00:00: 00 Yes 14 Jero Rodgers TAKE 1 TABLET BY MOUTH THREE TIMES A DAY 2021-09 00:00: 00 Yes 500 Jero Rodgers IBUPROFEN TAB 600MG 2021-09 00:00: 00 Yes 600 Jero Rodgers TAKE BY MOUTH 1 TABLET EVERY 4 HOURS NEEDED FOR [place] AND VOMITING 2021-09 00:00: 00 Yes 25 Jero Rodgers TAKE 1 CAPSULE BY MOUTH EVERY 8 HOURS. 2021-09 00:00: 00 Yes 100 Jero Rodgers 10 ML Q 4 TO 6 HOURS PRN COUGH FOR 5 DAYS 2021-09 00:00: 00 01-18 00:00 :00 No [id number] Jero Rodgers TAKE 1 CAPSULE EVERY 6 HOURS NEEDED. 2021-09 00:00: 00 01-18 00:00 :00 No 10 Jero Rodgers APPLY 1 PATCH TO SKIN EVERY DAY 05-20 00:00: 00 Yes Jero Rodgers PANTOPRAZOL E TAB 20MG 05-20 00:00: 00 Yes Jero Rodgers BROM/PSE/DM SYP 05-20 00:00: 00 Yes Jero Rodgers PREDNISONE 05-20 00:00: 00 Yes 10 Jero Rodgers APPLY 1 PATCH TO SKIN EVERY DAY 05-20 00:00: 00 No 14 PANTOPRAZOL E TAB 20MG 05-20 00:00: 00 No 20 hydroCHLORO thiazide (ESIDRIX) tablet 25 mg 09-29 15:00: 00 Yes 25mg 25 mg, Oral, DAILY, First dose (after last modificati on) on Thu09/29/21 at 0900, Until Discontinu ed, Routine [facility] hydroCHLORO thiazide 25 mg tablet 09-29 00:00: 00 Yes [id number] 25mg Take 1 tablet by mouth daily. [facility] hydroCHLORO thiazide (ESIDRIX) tablet 12.5 mg 09-28 22:30: 00 09-28 22:37 :00 No 12.5mg 12.5 mg, Oral, ONCE, 1 dose, On 09/28/21 at 1645, Routine [facility] magnesium sulfate in 0.9 %NaCl 10 gram/250 mL (40 mg/mL) IV SOLUTION 09-28 14:30: 00 09-29 02:29 :00 No 2g/h 2 g/hr (50 mL/hr), at 50 mL/hr, IV Infusion, CONTINUOUS , Starting on 09/28/21 at 0830, Until 09/28/21 at 202, DONAVON [facility] benzonatate (TESSALON PERLES) capsule 100 mg 09-28 14:15: 00 Yes 100mg 100 mg, Oral, Q8H, First dose (after last modificati on) on 09/28/21 at 0815, Until Discontinu ed, Routine [facility] ferrous sulfate tablet 325 mg 09-28 02:00: 00 Yes 325mg 325 mg, Oral, BID, First dose on Thu09/27/21 at 2000, Until Discontinu ed, Routine [facility] nicotine (NICODERM) 14 mg/24 hr patch 1 Patch 09-28 02:00: 00 Yes 1{patch } 1 Patch, Topical, Administer over 24 Hours, Q24H, First dose on Thu09/27/21 at 2000, Until Discontinu ed, Routine [facility] HYDROcodone -acetaminop hen (NORCO 5) 5-325 mg tablet 1 tablet 09-28 01:16: 40 Yes 1{tbl} 1 tablet, Oral, Q6HPRN, Starting on Thu09/27/21 at 1916, Until Discontinu ed, Routine, Pain (scale 7-10) [facility] acetaminoph en (TYLENOL) tablet 650 mg 09-28 00:52: 22 Yes 650mg 650 mg, Oral, Q6HPRN, Starting on Thu09/27/21 at 1852, Until Discontinu ed, Routine, pain [facility] benzonatate 100 mg capsule 09-28 00:00: 00 Yes [id number] 100mg Take 1 capsule by mouth every 8 (eight) hours. [facility] calcium gluconate 100 mg/mL (10%) injection 1,000 mg 09-27 23:10: 57 Yes 1g 1,000 mg (1 g), Slow IV Push, PRN - SEE INSTRUCTIO NS, Starting on Thu09/27/21 at 1710, Until Discontinu ed, Routine, MAGNESIUM TOXICITY [facility] D5W 0.45% NaCl (1/2NS) IV infusion 1,000 mL 09-27 22:45: 00 Yes 1000mL at 75 mL/hr, 1,000 mL, IV Infusion, CONTINUOUS , Starting on Thu09/27/21 at 1645, Until Discontinu ed, DONAVON [facility] magnesium sulfate in 0.9 %NaCl 10 gram/250 mL (40 mg/mL) IV SOLUTION 09-27 22:45: 00 09-28 10:44 :00 No 2g/h 2 g/hr (50 mL/hr), at 50 mL/hr, IV Infusion, CONTINUOUS , Starting on Thu09/27/21 at 1645, Until Thu09/28/21 at 0444, DONAVON [facility] labetaloL (NORMODYNE) injection 20 mg 09-27 22:42: 27 Yes 20mg [Order 1 Start] Name: labetaloL (NORMODYNE ) injection 20 mg Signed Summary: 20 mg, Slow IV Push, PRN - SEE INSTRUCTIO NS, 1 dose, Starting on Thu09/27/21 at 1642, Until Discontinu ed, Routine, If severe BP persists for 15 min or more, administer Labetalol 20 mg IV slow IV push (over more than 2 min) [Order 1 End] [Order 2 Start] Name: labetaloL (NORMODYNE ) injection 40 mg Signed Summary: 40 mg, Slow IV Push, PRN - SEE INSTRUCTIO NS, 1 dose, Starting on Thu09/27/21 at 1642, Until Discontinu ed, Routine, If either BP threshold is still exceeded, administer Labetalol 40 mg IV slow IV push (over 2 min). If BP below threshold, continue to monitor BP [Order 2 End] [Order 3 Start] Name: labetaloL (NORMODYNE ) injection 80 mg Signed Summary: 80 mg, Slow IV Push, PRN - SEE INSTRUCTIO NS, 1 dose, Starting on Thu09/27/21 at 1642, Until Discontinu ed, Routine, If either BP threshold is still exceeded, administer Labetalol 80 mg IV slow IV push (over 2 min). If BP below threshold, continue to monitor BP [Order 3 End] [Order 4 Start] Name: hydralAZIN E (APRESOLIN E) injection 10 mg Signed Summary: 10 mg, Slow IV Push, PRN - SEE INSTRUCTIO NS, 1 dose, Starting on Thu09/27/21 at 1642, Until Discontinu ed, Routine, If either BP threshold is still exceeded, administer Hydralazin e 10 mg slow IV push (over 2 min).
I ndication: Hypertensi ve Emergency in [Order 4 End] [facility] magnesium sulfate 4 mEq/mL (50 %) injection 32.48 mEq 09-27 22:40: 11 Yes 4g 32.48 mEq (4 g), Slow IV Push, PRN - SEE INSTRUCTIO NS, Starting on Thu09/27/21 at 1640, Until Discontinu ed, Routine, For seizure activity (patient not on magnesium sulfate) [facility] magnesium sulfate 4 mEq/mL (50 %) injection 16.24 mEq 09-27 22:40: 11 Yes 2g 16.24 mEq (2 g), Slow IV Push, PRN - SEE INSTRUCTIO NS, 2 doses, Starting on Thu09/27/21 at 1640, Until Discontinu ed, Routine, For seizure activity (patient already on magnesium sulfate) [facility] hydroCHLORO thiazide (ESIDRIX) tablet 12.5 mg 09-27 21:30: 00 09-28 22:30 :14 No 12.5mg 12.5 mg, Oral, DAILY, First dose (after last modificati on) on Thu09/27/21 at 1530, Until Discontinu ed, Routine [facility] ibuprofen (IBU) tablet 800 mg 09-27 21:23: 36 Yes 800mg 800 mg, Oral, Q8HPRN, Starting on Thu09/27/21 at 1523, Until Discontinu ed, Routine, Pain (scale 1-3), Pain (scale 4-6) [facility] hydrOXYzine (ATARAX) tablet 10 mg 09-20 12:00: 00 09-21 01:02 :42 No 10mg 10 mg, Oral, Q6H, First dose on Thu09/20/21 at 0600, Until Discontinu ed, Routine [facility] docusate calcium 240 mg capsule 09-20 00:00: 00 Yes [id number] 240mg Take 1 capsule by mouth once daily as needed for Constipati on. [facility] ibuprofen 600 mg tablet 09-20 00:00: 00 Yes [id number] 600mg Take 1 tablet by mouth every 6 (six) hours as needed (Pain). Take with food or milk. [facility] HYDROcodone -acetaminop hen 5-325 mg tablet 09-20 00:00: 00 09-28 00:00 :00 No [id number] 1{tbl} Take 1 tablet by mouth every 6 (six) hours as needed (Pain scale above 4) for up to 7 days. Do not exceed 3 grams of acetaminop hen in 24 hours. Indication s: acute pain [facility] investigati onl drug-metron idazole 500 mg or placebo 09-19 20:45: 00 09-21 01:02 :42 No 500mg 500 mg, Oral, Q8H ABX, First dose on Thu09/19/21 at 1445, Until Discontinu ed, Routine
Principal investigat or: SANAM WATERMAN [facility] nalbuphine (NUBAIN) injection 10 mg 09-19 18:00: 00 09-19 17:25 :00 No 10mg 10 mg, Intravenou s, ONCE, 1 dose, On Thu09/19/21 at 1200, Routine [facility] ibuprofen (IBU) tablet 600 mg 09-19 16:58: 10 09-21 01:02 :42 No 600mg 600 mg, Oral, Q6HPRN, Starting on Thu09/19/21 at 1058, Until Thu09/20/21 at 1902, Routine, Pain (scale 1-3), Pain (scale 4-6), Alternate with [place] for pain scale 4-6 [facility] simethicone (MYLICON) chewable tablet 125 mg 09-19 15:00: 00 09-21 01:02 :42 No 125mg 125 mg, Oral, PC+HS, First dose on Thu09/19/21 at 0900, Until Discontinu ed, Routine [facility] rho(D) immune globulin (RHOGAM) syringe 300 mcg 09-19 14:45: 05 09-21 01:02 :42 No 300ug 300 mcg, Intramuscu lar, ONCE, For 1 dose, Conditiona l, Routine [facility] HYDROcodone -acetaminop hen (NORCO 5) 5-325 mg tablet 1 tablet 09-19 14:45: 00 09-21 01:02 :42 No 1{tbl} [Order 1 Start] Name: HYDROcodon e-acetamin ophen (NORCO 5) 5-325 mg tablet 1 tablet Signed Summary: 1 tablet, Oral, Q6HPRN, Starting on Thu09/19/21 at 0845, Until Thu09/20/21 at 1902, Routine, Pain (scale 4-6) [Order 1 End] [Order 2 Start] Name: HYDROcodon e-acetamin ophen (NORCO) 10-325 mg tablet 1 tablet Signed Summary: 1 tablet, Oral, Q6HPRN, Starting on Thu09/19/21 at 0845, Until Thu09/20/21 at 1902, Routine, Pain (scale 7-10) [Order 2 End] [facility] ondansetron (ZOFRAN (PF)) injection 4 mg 09-19 14:44: 59 09-21 01:02 :42 No 4mg 4 mg, Slow IV Push, Q8HPRN, Starting on Thu09/19/21 at 0844, Until Thu09/20/21 at 1902, Routine, Nausea and Vomiting (N/V) [facility] docusate calcium (SURFAK) capsule 240 mg 09-19 14:44: 59 09-21 01:02 :42 No 240mg 240 mg, Oral, QDAILYPRN, Starting on Thu09/19/21 at 0844, Until Thu09/20/21 at 1902, Routine, Constipati on [facility] magnesium hydroxide (MILK OF MAGNESIA) 400 mg/5 mL suspension 30 mL 09-19 14:44: 59 09-21 01:02 :42 No 30mL 30 mL, Oral, QDAILYPRN, Starting on Thu09/19/21 at 0844, Until Thu09/20/21 at 1902, Routine, Constipati on [facility] diphenhydrA MINE-0.9 % sod.chlr (BENADRYL) 25 mg/50 mL piggyback 25 mg 09-19 14:44: 58 09-21 01:02 :42 No 25mg 25 mg, IV Piggyback, Administer over 30 Minutes, Q6HPRN, 1 dose, Starting on Thu09/19/21 at 0844, Until Thu09/20/21 at 1902, Routine, Itching [facility] diphenhydrA MINE (BENADRYL) tablet 25 mg 09-19 14:44: 58 09-21 01:02 :42 No 25mg 25 mg, Oral, Q6HPRN, Starting on Thu09/19/21 at 0844, Until Thu09/20/21 at 1902, Routine, Sleep, Itching [facility] bisacodyL (DULCOLAX) suppository 10 mg 09-19 14:44: 58 09-21 01:02 :42 No 10mg 10 mg, Rectal, QDAILYPRN, Starting on Thu09/19/21 at 0844, Until Thu09/20/21 at 1902, Routine, Constipati on [facility] ketorolac (TORADOL) injection 30 mg 09-19 12:23: 25 09-19 12:32 :00 No 30mg 30 mg, Slow IV Push, PRN, 1 dose, Starting on Thu09/19/21 at 0623, Until Thu09/19/21 at 0632, Routine, Pain (scale 7-10)
F aculty member approving Restricted medication : STARR CHRISTIANSON [facility] LR 1000 mL + oxytocin 20 units IV Solution 09-19 11:00: 00 09-19 12:28 :00 No 999mL/h 999 mL/hr, IV Infusion, ONCE, On Thu09/19/21 at 0500, For 1 dose [facility] ceFAZolin in 0.9% sodium chloride (ANCEF) 2 gram/100 mL RTU 2 g 09-19 10:30: 39 09-19 11:15 :00 No 2000mg 2 g (2,000 mg), IV Piggyback, O.R. HOLDING ONCE, 1 dose, Starting on Thu09/19/21 at 0430, Until Discontinu ed, Administer over 30 Minutes
Reason for Anti-Infec tive: Surgical Prophylaxi s
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
Duration of therapy: within 24 hours of surgery [facility] D5W 0.45% NaCl (1/2NS) IV infusion 1,000 mL 09-19 10:00: 00 09-19 14:45 :05 No 1000mL at 75 mL/hr, 1,000 mL, IV Infusion, CONTINUOUS , Starting on Thu09/19/21 at 0400, Until Thu09/19/21 at 0845, [facility] magnesium sulfate 10 g in NS 250 mL IV Solution (CNR) 09-19 10:00: 00 09-19 21:59 :00 No 2g/h 2 g/hr (50 mL/hr), at 50 mL/hr, IV Infusion, CONTINUOUS , Starting on Thu09/19/21 at 0400, Until Thu09/19/21 at 1559, [facility] magnesium sulfate 4 mEq/mL (50 %) injection 32.48 mEq 09-19 09:42: 48 09-21 01:02 :42 No 4g 32.48 mEq (4 g), Slow IV Push, PRN - SEE INSTRUCTIO NS, Starting on Thu09/19/21 at 0342, Until Thu09/20/21 at 1902, Routine, For seizure activity (patient not on magnesium sulfate) [facility] magnesium sulfate 4 mEq/mL (50 %) injection 16.24 mEq 09-19 09:42: 48 09-21 01:02 :42 No 2g 16.24 mEq (2 g), Slow IV Push, PRN - SEE INSTRUCTIO NS, 2 doses, Starting on Thu09/19/21 at 0342, Until Thu09/20/21 at 1902, Routine, For seizure activity (patient already on magnesium sulfate) [facility] hydrOXYzine (ATARAX) tablet 10 mg 09-19 06:00: 00 09-19 14:45 :05 No 10mg 10 mg, Oral, Q6H, First dose on Thu09/19/21 at 0000, Until Discontinu ed, Routine [facility] LR 1000 mL + oxytocin 20 units IV Solution 09-19 03:28: 23 09-19 14:45 :05 No 2mU/min at 6-120 mL/hr, IV Infusion, TITRATE, Starting on Thu09/18/21 at 2128, Until Thu09/19/21 at 0845, [facility] diphenhydrA MINE (BENADRYL) injection 25 mg 09-18 23:15: 00 09-18 23:29 :00 No 25mg 25 mg, Slow IV Push, ONCE, 1 dose, On Thu09/18/21 at 1730, [facility] nicotine (NICODERM) 14 mg/24 hr patch 1 Patch 09-18 22:45: 00 09-19 14:45 :05 No 1{patch } 1 Patch, Topical, Administer over 24 Hours, Q24H, First dose on Thu09/18/21 at 1645, Until Discontinu ed, [facility] 500 mL 09-18 22:15: 00 09-18 21:20 :00 No 500mL at 999 mL/hr, 500 mL, IV Infusion, ONCE, 1 dose, On Thu09/18/21 at 1615, Routine [facility] fentaNYL 2 mcg/mL + bupivacaine 0.1% in NS 250 mL epidural bag 09-18 21:38: 00 Yes Intra-op [facility] lidocaine-e pinephrine (XYLOCAINE W/EPINEPHRI NE) 1.5 %-1:200,000 injection 09-18 21:34: 00 Yes Epidural, ONCE INTRA PROCEDURE, Starting on Thu09/18/21 at 1534, Until Discontinu ed, Routine, Intra-op [facility] sodium citrate-cit orly acid (BICITRA) 500-334 mg/5 mL solution 30 mL 09-18 21:06: 16 09-18 21:20 :00 No 30mL 30 mL, Oral, PRE-PROCED URE ONCE, 1 dose, Starting on Thu09/18/21 at 1506, Until Thu09/18/21 at 1520, Routine, Surgery/Pr ocedure [facility] [id number] IV infusion 1,000 mL 09-18 20:45: 00 09-19 14:45 :05 No 1000mL at 125 mL/hr, IV Infusion, CONTINUOUS , Starting on Thu09/18/21 at 1445, Until Alia 09/19/21 at 0845, Routine [facility] sodium citrate-cit orly acid (BICITRA) 500-334 mg/5 mL solution 30 mL 09-18 20:36: 43 09-19 10:35 :00 No 30mL 30 mL, Oral, PRE-PROCED URE ONCE, 1 dose, Starting on Thu09/18/21 at 1436, Until Discontinu ed, Routine, Surgery/Pr ocedure [facility] proMETHazin e 25 mg tablet 2020-09 00:00: 00 09-20 00:00 :00 No [id number] 25mg Take 1 tablet by mouth every 4 (four) hours as needed for Nausea and Vomiting (N/V). [facility] cyclobenzap rine 10 mg tablet 2020-09 00:00: 00 09-20 00:00 :00 No [id number] 10mg Take 1 tablet by mouth 3 (three) times daily as needed for Muscle Spasms. [facility] pantoprazol e (PROTONIX) 20 mg EC tablet 2020-09 00:00: 00 09-20 00:00 :00 No [id number] 20mg Take 1 tablet by mouth daily. [facility] ferrous sulfate 325 mg (65 mg iron) tablet 2020-09 00:00: 00 Yes [id number] 325mg Take 1 tablet by mouth 2 (two) times daily. [facility] ascorbic acid, vitamin C, 500 mg tablet 2020-09 00:00: 00 Yes [id number] 500mg Take 1 tablet by mouth 3 (three) times daily. [facility] nicotine 14 mg/24 hr patch 2020-09 00:00: 00 Yes [id number] 1{patch } Apply 1 Patch to area(s) every 24 (twenty-fo ur) hours. [facility] vit 33-iron-fol ic-dha (SELECT-OB + DHA) 29 mg iron-1 mg -250 mg combo pack 03-06 00:00: 00 Yes [id number] 1{packe t} Take 1 Packet by mouth daily. [facility] vit 33-iron-fol ic-dha (SELECT-OB + DHA) 29 mg iron-1 mg -250 mg combo pack 03-06 00:00: 00 Yes [id number] 1{packe t} Take 1 Packet by mouth daily. [facility] Dose Unknown 05-25 00:00: 00 Yes 25mg Jero Rodgers ranitidine 150 mg tablet 05-25 00:00: 00 No 1mg Dose Unknown 12-21 00:00: 00 Yes 10mg Jero Rodgers amoxicillin 500 mg capsule 12-21 00:00: 00 No 1mg ProAir HFA 90 mcg/actuati on aerosol inhaler 05-11 00:00: 00 Yes 2mcg/ac tuation Jero Rodgers prednisone 20 mg tablet 05-11 00:00: 00 Yes 2mg Jero Rodgers benzonatate 200 mg capsule 05-11 00:00: 00 Yes 1mg Jero Rodgers ProAir HFA 90 mcg/actuati on aerosol inhaler 05-11 00:00: 00 No 2mcg/ac tuation prednisone 20 mg tablet 05-11 00:00: 00 No 2mg benzonatate 200 mg capsule 05-11 00:00: 00 No 1mg Keflex 500 mg capsule 05-03 00:00: 00 Yes 1mg Jero Rodgers Keflex 500 mg capsule 05-03 00:00: 00 No 1mg Zithromax Z-Yared 250 mg tablet 12-25 00:00: 00 Yes 1mg Jero Rodgers Zithromax Z-Yared 250 mg tablet 12-25 00:00: 00 No 1mg mirtazapine 30 mg tablet 2016-09 00:00: 00 Yes 1mg Jero Rodgers hydroxyzine HCl 50 mg tablet 2016-09 00:00: 00 Yes 1mg Jero Rodgers Vitamin D2 50,000 unit capsule 2016-09 00:00: 00 Yes 1unit Jero Rodgers Vitamin D2 50,000 unit capsule 2016-09 00:00: 00 No 1unit mirtazapine 30 mg tablet 2016-09 00:00: 00 No 1mg hydroxyzine HCl 50 mg tablet 2016-09 00:00: 00 No 1mg fluoxetine 40 mg capsule 02-23 00:00: 00 Yes 1mg Jero Rodgers propranolol 10 mg tablet 02-23 00:00: 00 Yes 12mg Jero Rodgers hydroxyzine HCl 25 mg tablet 02-23 00:00: 00 Yes 12mg Jero Rodgers propranolol 10 mg tablet 02-23 00:00: 00 No 12mg hydroxyzine HCl 25 mg tablet 02-23 00:00: 00 No 12mg fluoxetine 40 mg capsule 02-23 00:00: 00 No 1mg Immunizations Ordered Immunization Name Filled Immunization Name Date Status Comments Source HPV9 2022-08-11 00:00:00 Completed [facility] HPV9 2022-08-11 00:00:00 Completed [facility] HPV9 2021-09-20 00:00:00 Completed [facility] SARS-COV-2 COVID-19 PFIZER VACCINE 2021-09-20 00:00:00 Completed [facility] Varicella (varivax)(chicken pox) 2021-09-20 00:00:00 Completed [facility] HPV9 2021-09-20 00:00:00 Completed [facility] SARS-COV-2 COVID-19 PFIZER VACCINE 2021-09-20 00:00:00 Completed [facility] Varicella (varivax)(chicken pox) 2021-09-20 00:00:00 Completed [facility] HPV9 2021-09-20 00:00:00 Completed [facility] SARS-COV-2 COVID-19 PFIZER VACCINE 2021-09-20 00:00:00 Completed [facility] Varicella (varivax)(chicken pox) 2021-09-20 00:00:00 Completed [facility] HPV9 2021-09-20 00:00:00 Completed [facility] SARS-COV-2 COVID-19 PFIZER VACCINE 2021-09-20 00:00:00 Completed [facility] Varicella (varivax)(chicken pox) 2021-09-20 00:00:00 Completed [facility] HPV9 2021-09-20 00:00:00 Completed [facility] SARS-COV-2 COVID-19 PFIZER VACCINE 2021-09-20 00:00:00 Completed [facility] Varicella (varivax)(chicken pox) 2021-09-20 00:00:00 Completed [facility] HPV9 2021-09-20 00:00:00 Completed [facility] SARS-COV-2 COVID-19 PFIZER VACCINE 2021-09-20 00:00:00 Completed [facility] Varicella (varivax)(chicken pox) 2021-09-20 00:00:00 Completed [facility] HPV9 2021-09-20 00:00:00 Completed [facility] SARS-COV-2 COVID-19 PFIZER VACCINE 2021-09-20 00:00:00 Completed [facility] Varicella (varivax)(chicken pox) 2021-09-20 00:00:00 Completed [facility] HPV9 2021-09-20 00:00:00 Completed [facility] SARS-COV-2 COVID-19 PFIZER VACCINE 2021-09-20 00:00:00 Completed [facility] Varicella (varivax)(chicken pox) 2021-09-20 00:00:00 Completed [facility] HPV9 2021-09-20 00:00:00 Completed [facility] SARS-COV-2 COVID-19 PFIZER VACCINE 2021-09-20 00:00:00 Completed [facility] Varicella (varivax)(chicken pox) 2021-09-20 00:00:00 Completed [facility] HPV9 2021-09-20 00:00:00 Completed [facility] SARS-COV-2 COVID-19 PFIZER VACCINE 2021-09-20 00:00:00 Completed Varicella (varivax)(chicken pox) 2021-09-20 00:00:00 Completed [facility] 2021-09-20 00:00:00 Completed [facility] SARS-COV-2 COVID-19 PFIZER VACCINE 2021-09-20 00:00:00 Completed [facility] Varicella (varivax)(chicken pox) 2021-09-20 00:00:00 Completed [facility] HPV9 2021-09-20 00:00:00 Completed [facility] SARS-COV-2 COVID-19 PFIZER VACCINE 2021-09-20 00:00:00 Completed [facility] Varicella (varivax)(chicken pox) 2021-09-20 00:00:00 Completed [facility] HPV9 2021-09-20 00:00:00 Completed [facility] SARS-COV-2 COVID-19 PFIZER VACCINE 2021-09-20 00:00:00 Completed [facility] Varicella (varivax)(chicken pox) 2021-09-20 00:00:00 Completed [facility] HPV9 2021-09-20 00:00:00 Completed [facility] SARS-COV-2 COVID-19 PFIZER VACCINE 2021-09-20 00:00:00 Completed [facility] Varicella (varivax)(chicken pox) 2021-09-20 00:00:00 Completed [facility] TDAP 2021-07-19 00:00:00 Completed [facility] Influenza Virus Vaccine Quad IM, Preserv and ABX Free 6 MO-64 YRS 2021-07-19 00:00:00 Completed [facility] TDAP 2021-07-19 00:00:00 Completed [facility] Influenza Virus Vaccine Quad IM, Preserv and ABX Free 6 MO-64 YRS 2021-07-19 00:00:00 Completed [facility] TDAP 2021-07-19 00:00:00 Completed [facility] Influenza Virus Vaccine Quad IM, Preserv and ABX Free 6 MO-64 YRS 2021-07-19 00:00:00 Completed [facility] TDAP 2021-07-19 00:00:00 Completed [facility] Influenza Virus Vaccine Quad IM, Preserv and ABX Free 6 MO-64 2021-07-19 00:00:00 Completed [facility] TDAP 2021-07-19 00:00:00 Completed [facility] Influenza Virus Vaccine Quad IM, Preserv and ABX Free 6 MO-64 YRS 2021-07-19 00:00:00 Completed [facility] TDAP 2021-07-19 00:00:00 Completed [facility] Influenza Virus Vaccine Quad IM, Preserv and ABX Free 6 MO-64 YRS 2021-07-19 00:00:00 Completed [facility] TDAP 2021-07-19 00:00:00 Completed [facility] Influenza Virus Vaccine Quad IM, Preserv and ABX Free 6 MO-64 YRS 2021-07-19 00:00:00 Completed [facility] TDAP 2021-07-19 00:00:00 Completed [facility] Influenza Virus Vaccine Quad IM, Preserv and ABX Free 6 MO-64 YRS 2021-07-19 00:00:00 Completed [facility] TDAP 2021-07-19 00:00:00 Completed [facility] Influenza Virus Vaccine Quad IM, Preserv and ABX Free 6 MO-64 YRS 2021-07-19 00:00:00 Completed [facility] TDAP 2021-07-19 00:00:00 Completed [facility] Influenza Virus Vaccine Quad IM, Preserv and ABX Free 6 MO-64 YRS (FLUCELVAX) 2021-07-19 00:00:00 Completed [facility] TDAP 2021-07-19 00:00:00 Completed [facility] Influenza Virus Vaccine Quad IM, Preserv and ABX Free 6 MO-64 2021-07-19 00:00:00 Completed [facility] TDAP 2021-07-19 00:00:00 Completed [facility] Influenza Virus Vaccine Quad IM, Preserv and ABX Free 6 MO-64 YRS 2021-07-19 00:00:00 Completed [facility] TDAP 2021-07-19 00:00:00 Completed [facility] Influenza Virus Vaccine Quad IM, Preserv and ABX Free 6 MO-64 YRS 2021-07-19 00:00:00 Completed [facility] TDAP 2021-07-19 00:00:00 Completed [facility] Influenza Virus Vaccine Quad IM, Preserv and ABX Free 6 MO-64 YRS 2021-07-19 00:00:00 Completed [facility] TDAP 2021-07-19 00:00:00 Completed [facility] Influenza Virus Vaccine Quad IM, Preserv and ABX Free 6 MO-64 YRS 2021-07-19 00:00:00 Completed [facility] TDAP 2021-07-19 00:00:00 Completed [facility] Influenza Virus Vaccine Quad IM, Preserv and ABX Free 6 MO-64 YRS 2021-07-19 00:00:00 Completed [facility] HPV 2014-08-29 00:00:00 Completed [facility] HPV 2014-08-29 00:00:00 Completed [facility] HPV 2014-08-29 00:00:00 Completed [facility] HPV 2014-08-29 00:00:00 Completed [facility] HPV 2014-08-29 00:00:00 Completed [facility] HPV 2014-08-29 00:00:00 Completed [facility] HPV 2014-08-29 00:00:00 Completed [facility] HPV 2014-08-29 00:00:00 Completed [facility] HPV 2014-08-29 00:00:00 Completed [facility] HPV 2014-08-29 00:00:00 Completed HPV 2014-08-29 00:00:00 Completed [facility] HPV 2014-08-29 00:00:00 Completed [facility] HPV 2014-08-29 00:00:00 Completed [facility] HPV 2014-08-29 00:00:00 Completed [facility] HPV 2014-08-29 00:00:00 Completed [facility] HPV 2014-08-29 00:00:00 Completed [facility] TDAP 2013-08-15 00:00:00 Completed [facility] TDAP 2013-08-15 00:00:00 Completed [facility] TDAP 2013-08-15 00:00:00 Completed [facility] TDAP 2013-08-15 00:00:00 Completed [facility] TDAP 2013-08-15 00:00:00 Completed [facility] TDAP 2013-08-15 00:00:00 Completed [facility] TDAP 2013-08-15 00:00:00 Completed [facility] TDAP 2013-08-15 00:00:00 Completed [facility] TDAP 2013-08-15 00:00:00 Completed [facility] TDAP 2013-08-15 00:00:00 Completed TDAP 2013-08-15 00:00:00 Completed [facility] TDAP 2013-08-15 00:00:00 Completed [facility] TDAP 2013-08-15 00:00:00 Completed [facility] TDAP 2013-08-15 00:00:00 Completed [facility] TDAP 2013-08-15 00:00:00 Completed [facility] TDAP 2013-08-15 00:00:00 Completed [facility] Td 2002-09-14 00:00:00 Completed [facility] Td 2002-09-14 00:00:00 Completed [facility] Td 2002-09-14 00:00:00 Completed [facility] Td 2002-09-14 00:00:00 Completed [facility] Td 2002-09-14 00:00:00 Completed [facility] Td 2002-09-14 00:00:00 Completed [facility] Td 2002-09-14 00:00:00 Completed [facility] Td 2002-09-14 00:00:00 Completed [facility] Td 2002-09-14 00:00:00 Completed [facility] TD, NOS 2002-09-14 00:00:00 Completed Td 2002-09-14 00:00:00 Completed [facility] Td 2002-09-14 00:00:00 Completed [facility] Td 2002-09-14 00:00:00 Completed [facility] Td 2002-09-14 00:00:00 Completed [facility] Td 2002-09-14 00:00:00 Completed [facility] Td 2002-09-14 00:00:00 Completed [facility] TD, NOS Unknown Completed [facility] TDAP Unknown Completed [facility] HPV Unknown Completed [facility] Influenza Virus Vaccine Quad IM, Preserv and ABX Free 6 MO-64 YRS (FLUCELVAX) Unknown Completed [facility] HPV9 Unknown Completed [facility] SARS-COV-2 COVID-19 PFIZER VACCINE Unknown Completed [facility] Varicella (varivax)(chicken pox) Unknown Completed [facility] TD, NOS Unknown Completed [facility] TDAP Unknown Completed [facility] HPV Unknown Completed [facility] Influenza Virus Vaccine Quad IM, Preserv and ABX Free 6 MO-64 YRS (FLUCELVAX) Unknown Completed [facility] HPV9 Unknown Completed [facility] SARS-COV-2 COVID-19 PFIZER VACCINE Unknown Completed [facility] Varicella (varivax)(chicken pox) Unknown Completed [facility] TD, NOS Unknown Completed [facility] TDAP Unknown Completed [facility] HPV Unknown Completed [facility] Influenza Virus Vaccine Quad IM, Preserv and ABX Free 6 MO-64 YRS (FLUCELVAX) Unknown Completed [facility] HPV9 Unknown Completed [facility] SARS-COV-2 COVID-19 PFIZER VACCINE Unknown Completed [facility] Varicella (varivax)(chicken pox) Unknown Completed [facility] Vital Signs Vital Name Observation Time Observation Value Comments S ource Systolic blood pressure 2022-08-11 19:54:00 130 mm[Hg] [facility] Diastolic blood pressure 2022-08-11 19:54:00 85 mm[Hg] [facility] Heart rate 2022-08-11 19:53:00 93 /min [facility] Body temperature 2022-08-11 19:53:00 36.67 Maria Dolores [facility] Respiratory rate 2022-08-11 19:53:00 18 /min [facility] Body height 2022-08-11 19:53:00 170.2 cm [facility] Body weight 2022-08-11 19:53:00 131.316 kg [facility] BMI 2022-08-11 19:53:00 45.34 kg/m2 [facility] Systolic blood pressure 2021-09-29 01:00:00 135 mm[Hg] [facility] Diastolic blood pressure 2021-09-29 01:00:00 80 mm[Hg] [facility] Heart rate 2021-09-29 01:00:00 94 /min [facility] Body temperature 2021-09-29 01:00:00 37 Maria Dolores [facility] Respiratory rate 2021-09-29 01:00:00 18 /min [facility] Oxygen saturation in Arterial blood by Pulse oximetry 2021-09-29 01:00:00 99 /min [facility] Body height 2021-09-27 18:50:00 170.2 cm [facility] Body weight 2021-09-27 18:50:00 118.933 kg Univ [facility] BMI 2021-09-27 18:50:00 41.07 kg/m2 [facility] Systolic blood pressure 2021-09-26 16:15:00 149 mm[Hg] [facility] Diastolic blood pressure 2021-09-26 16:15:00 94 mm[Hg] [facility] Heart rate 2021-09-26 16:15:00 84 /min Unive [facility] Body temperature 2021-09-26 16:14:00 36.22 Maria Dolores [facility] Respiratory rate 2021-09-26 16:14:00 16 /min [facility] Body height 2021-09-26 16:14:00 170.2 cm [facility] Body weight 2021-09-26 16:14:00 119.523 kg [facility] BMI 2021-09-26 16:14:00 41.27 kg/m2 [facility] Systolic blood pressure 2021-09-20 17:53:00 139 mm[Hg] [facility] Diastolic blood pressure 2021-09-20 17:53:00 80 mm[Hg] [facility] Heart rate 2021-09-20 17:53:00 85 [facility] Body temperature 2021-09-20 17:53:00 36.72 Maria Dolores [facility] Respiratory rate 2021-09-20 17:53:00 18 /min [facility] Oxygen saturation in Arterial blood by Pulse oximetry 2021-09-20 17:53:00 98 /min [facility] Systolic blood pressure 2021-09-19 12:15:00 126 mm[Hg] [facility] Diastolic blood pressure 2021-09-19 12:15:00 75 mm[Hg] [facility] Heart rate 2021-09-19 12:15:00 99 /[facility] 2021-09-19 12:15:00 25 /min [facility] Oxygen saturation in Arterial blood by Pulse oximetry 2021-09-19 12:15:00 97 /min [facility] Body temperature 2021-09-19 10:00:00 37.06 Maria Dolores [facility] BP Systolic 2024-03-30 16:31:00 149 mm[Hg] Step hen F Vishal BP Diastolic 2024-03-30 16:31:00 91 mm[Hg] Bharat phen F [facility]al Weight Measured 2024-03-30 16:31:00 290.40 pounds Jero F Vishal Height Measured 2024-03-30 16:31:00 67.00 inches Jero F [facility] Body Temperature 2024-03-30 16:31:00 97.50 degrees Jero F Vishal Heart Rate 2024-03-30 16:31:00 96.00 /min Kimberly en F [facility]al Respiratory Rate 2024-03-30 16:31:00 20.00 /min Jero F Vishal BP Systolic 2024-03-01 16:43:00 150 mm[Hg] Step hen F [facility]ishal BP Diastolic 2024-03-01 16:43:00 96 mm[Hg] Bharat phen F [facility]ishal Weight Measured 2024-03-01 16:43:00 296.60 pounds Jero F Vishal Height Measured 2024-03-01 16:43:00 67.00 inches Jero F Vishal Body Temperature 2024-03-01 16:43:00 95.10 degrees Jero F Vishal Heart Rate 2024-03-01 16:43:00 114.00 /min Step hen F [facility] Respiratory Rate 2024-03-01 16:43:00 19.00 /min Jero F Vishal BP Systolic 2024-01-13 14:17:00 137 mm[Hg] Step hen F Vishal BP Diastolic 2024-01-13 14:17:00 94 mm[Hg] Bharat phen F Vishal Weight Measured 2024-01-13 14:17:00 295.20 pounds Jero F Vishal Height Measured 2024-01-13 14:17:00 67.00 inches Jero F Vishal Body Temperature 2024-01-13 14:17:00 98.10 degrees Jero F Vishal Heart Rate 2024-01-13 14:17:00 92.00 /min Kimberly en F Vishal Respiratory Rate 2024-01-13 14:17:00 16.00 /min Jero F Vishal BP Systolic 2023-12-16 17:05:00 144 mm[Hg] Step hen F Vishal BP Diastolic 2023-12-16 17:05:00 94 mm[Hg] Bharat phen F Vishal Weight Measured 2023-12-16 17:05:00 297.50 pounds Jero F Vishal Height Measured 2023-12-16 17:05:00 67.00 inches Jero F Vishal Body Temperature 2023-12-16 17:05:00 98.70 degrees Jero F Vishal Heart Rate 2023-12-16 17:05:00 Kimberly en F Vishal Respiratory Rate 2023-12-16 17:05:00 Jero F Vishal BP Systolic 2023-06-03 11:50:00 Step hen F Vishal BP Diastolic 2023-06-03 11:50:00 Bharat phen F Vishal Weight Measured 2023-06-03 11:50:00 Jero F Vishal Height Measured 2023-06-03 11:50:00 Jero F Vishal Body Temperature 2023-06-03 11:50:00 Jero F Vishal Heart Rate 2023-06-03 11:50:00 Kimberly en F Vishal Respiratory Rate 2023-06-03 11:50:00 Jero F Vishal BP Systolic 2022-11-13 13:58:00 138 mm[Hg] Step hen F Vishal BP Diastolic 2022-11-13 13:58:00 89 mm[Hg] Bharat phen F [facility]ishal Weight Measured 2022-11-13 13:58:00 297.20 pounds Jero F Vishal Height Measured 2022-11-13 13:58:00 67.00 inches Jero F Vishal Body Temperature 2022-11-13 13:58:00 98.20 degrees Jero F Vishal Heart Rate 2022-11-13 13:58:00 108.00 /min Step hen F [facility] Respiratory Rate 2022-11-13 13:58:00 19.00 /min Jero F Vishal BP Systolic 2022-08-18 13:49:00 141 mm[Hg] Step hen F Vishal BP Diastolic 2022-08-18 13:49:00 97 mm[Hg] Bharat phen F Vishal Weight Measured 2022-08-18 13:49:00 290.60 pounds Jero F Vishal Height Measured 2022-08-18 13:49:00 67.00 inches Jero F Vishal Body Temperature 2022-08-18 13:49:00 98.60 degrees Jero F Vishal Heart Rate 2022-08-18 13:49:00 100.00 /min Step hen F Vishal Respiratory Rate 2022-08-18 13:49:00 Jero F Vishal BP Systolic 2022-05-20 16:53:00 123 mm[Hg] Step hen F Vishal BP Diastolic 2022-05-20 16:53:00 77 mm[Hg] Bharat phen F Vishal Weight Measured 2022-05-20 16:53:00 283.40 pounds Jero F Vishal Height Measured 2022-05-20 16:53:00 67.00 inches Jero F Vishal Body Temperature 2022-05-20 16:53:00 98.60 degrees Jero F Vishal Heart Rate 2022-05-20 16:53:00 90.00 /min Kimberly en F Vishal Respiratory Rate 2022-05-20 16:53:00 24.00 /min Jero F Vishal BP Systolic 2019-05-25 17:08:00 152 mm[Hg] Step hen F Vishal BP Diastolic 2019-05-25 17:08:00 86 mm[Hg] Bharat phen F Vishal Weight Measured 2019-05-25 17:08:00 308.80 pounds Jero F Vishal Height Measured 2019-05-25 17:08:00 67.00 inches Jero F Vishal Body Temperature 2019-05-25 17:08:00 99.50 degrees Jero F Vishal Heart Rate 2019-05-25 17:08:00 116.00 /min Step hen F Vishal Respiratory Rate 2019-05-25 17:08:00 18.00 /min Jero F Vishal BP Systolic 2018-12-21 13:10:00 144 mm[Hg] Step hen F Vishal BP Diastolic 2018-12-21 13:10:00 95 mm[Hg] Bharat phen F Vishal Weight Measured 2018-12-21 13:10:00 307.20 pounds Jero F Vishal Height Measured 2018-12-21 13:10:00 67.00 inches Jero F Vishal Body Temperature 2018-12-21 13:10:00 98.90 degrees Jero F Vishal Heart Rate 2018-12-21 13:10:00 100.00 /min Step hen F [facility]al Respiratory Rate 2018-12-21 13:10:00 18.00 /min Jero F Vishal BP Systolic 2018-05-27 10:15:00 131 mm[Hg] Step hen F Vishal BP Diastolic 2018-05-27 10:15:00 90 mm[Hg] Bharat phen F Vishal Weight Measured 2018-05-27 10:15:00 291.80 pounds Jero F Vishal Height Measured 2018-05-27 10:15:00 67.00 inches Jero F Vishal Body Temperature 2018-05-27 10:15:00 98.70 degrees Jero F Vishal Heart Rate 2018-05-27 10:15:00 106.00 /min Step hen F [facility]al Respiratory Rate 2018-05-27 10:15:00 16.00 /min Jero F Vishal BP Systolic 2018-05-11 15:20:00 122 mm[Hg] Step hen F Vishal BP Diastolic 2018-05-11 15:20:00 80 mm[Hg] Bharat phen F [facility]ishal Weight Measured 2018-05-11 15:20:00 290.80 pounds Jero F Vishal Height Measured 2018-05-11 15:20:00 67.00 inches Jero F Vishal Body Temperature 2018-05-11 15:20:00 98.50 degrees Jero F Vishal Heart Rate 2018-05-11 15:20:00 114.00 /min Step hen F [facility] Respiratory Rate 2018-05-11 15:20:00 16.00 /min Jero F Vishal BP Systolic 2018-05-03 15:21:00 127 mm[Hg] BP Diastolic 2018-05-03 15:21:00 91 mm[Hg] Weight Measured 2018-05-03 15:21:00 290.60 pounds Height Measured 2018-05-03 15:21:00 67.00 inches Body Temperature 2018-05-03 15:21:00 98.30 degrees Heart Rate 2018-05-03 15:21:00 92.00 /min Respiratory Rate 2018-05-03 15:21:00 17.00 /min Heart Rate 2017-12-28 09:44:00 96.00 /min Respiratory Rate 2017-12-28 09:44:00 16.00 /min BP Systolic 2017-12-28 09:44:00 135 mm[Hg] BP Diastolic 2017-12-28 09:44:00 98 mm[Hg] Weight Measured 2017-12-28 09:44:00 305.40 pounds Height Measured 2017-12-28 09:44:00 67.00 inches Body Temperature 2017-12-28 09:44:00 98.70 degrees BP Systolic 2017-12-25 08:59:00 127 mm[Hg] BP Diastolic 2017-12-25 08:59:00 86 mm[Hg] Weight Measured 2017-12-25 08:59:00 301.00 pounds Height Measured 2017-12-25 08:59:00 67.00 inches Body Temperature 2017-12-25 08:59:00 98.50 degrees Heart Rate 2017-12-25 08:59:00 94.00 /min Respiratory Rate 2017-12-25 08:59:00 16.00 /min BP Systolic 2017-07-20 15:15:00 116 mm[Hg] BP Diastolic 2017-07-20 15:15:00 83 mm[Hg] Weight Measured 2017-07-20 15:15:00 281.40 pounds Height Measured 2017-07-20 15:15:00 67.00 inches Body Temperature 2017-07-20 15:15:00 98.40 degrees Heart Rate 2017-07-20 15:15:00 127.00 /min Respiratory Rate 2017-07-20 15:15:00 BP Systolic 2017-02-23 14:34:00 115 mm[Hg] BP Diastolic 2017-02-23 14:34:00 84 mm[Hg] Weight Measured 2017-02-23 14:34:00 270.00 pounds Height Measured 2017-02-23 14:34:00 67.00 inches Body Temperature 2017-02-23 14:34:00 Heart Rate 2017-02-23 14:34:00 94.00 /min Respiratory Rate 2017-02-23 14:34:00 Procedures Procedure Date / Time Performed Performing Clinician Source CT HEAD WO CONTRAST 2024-03-15 12:29:00 Requisition, P aper [facility] REFERRAL- REQUEST/RESPONSE 2024-01-14 16:34:59 Doctor Unassigned, [place] [facility] GARDASIL 9 (HPV 9V) VACCINE 2022-08-11 20:11:02 Gladys Rubin [facility] ASSIGNMENT OF BENEFITS 2022-08-11 19:31:45 Docto r Unassigned, [place] [facility] XR CHEST 1 VW 2021-09-28 15:46:34 [facility] RAPID STREP SCREEN FOR GROUP A 2021-09-28 14:18:00 Adum, Leonor Davila [facility] COVID-19 (ID NOW RAPID TESTING) 2021-09-28 14:18:00 Adum, Leonor Davila [facility] US ABDOMEN LIMITED 2021-09-27 21:25:24 Adum, Leonor Davila [facility] CREATININE 2021-09-27 19:50:00 Adum, Leonor Davila [facility] LACTATE DEHYDROGENASE 2021-09-27 19:50:00 Adum, Leonor Davila [facility] URIC ACID 2021-09-27 19:50:00 Adum, Leonor Davila [facility] COMP. METABOLIC PANEL (88740) 2021-09-27 19:50:00 Adum, Leonor Davila [facility] CBC WITH DIFF 2021-09-27 19:50:00 Adum, [facility] URINALYSIS 2021-09-27 19:50:00 Adum, Leonor Davila [facility] PROTEIN CREAT RATIO URINE RANDOM 2021-09-27 19:50:00 Adum, Leonor Davila [facility] COVID-19 (ID NOW RAPID TESTING) 2021-09-27 19:50:00 Adum, Leonor Davila [facility] CONSENT/REFUSAL FOR DIAGNOSIS AND TREATMENT 2021-09-27 18:46:56 Doctor Unassigned, [place] [facility] ASSIGNMENT OF BENEFITS 2021-09-27 18:46:43 Docto r Unassigned, [place] [facility] CBC WITH DIFF 2021-09-20 11:01:00 [facility] CBC WITH DIFF 2021-09-20 11:01:00 [facility] HCV ANTIBODY 2021-09-19 12:04:00 Leona Anthony [facility] HCV ANTIBODY 2021-09-19 12:04:00 Anthony Delgadillo [facility] VENOUS CORD GAS 2021-09-19 11:22:00 [facility] VENOUS CORD GAS 2021-09-19 11:22:00 Ernestina [facility] SECTION 2021-09-19 10:34:00 Morenita Mckeon [facility] CENTRAL NEURAXIAL BLOCK 2021-09-18 21:38:50 Jf Denny [facility] PROTEIN CREAT RATIO URINE RANDOM 2021-09-18 20:51:00 Degraffesandro [facility] PROTEIN CREAT RATIO URINE RANDOM 2021-09-18 20:51:00 Degraffesandro [facility] CBC WITH DIFF 2021-09-18 20:48:00 DegraffenreiMarissa linder [facility] CBC WITH DIFF 2021-09-18 20:48:00 DegraffenrMarissa pinzon [facility] HB ABO GROUPING 2021-09-18 20:42:00 [facility] RHO (D) IMMUNE GLOBULIN 2021-09-18 20:42:00 Ra garry [facility] HB ABO GROUPING 2021-09-18 20:42:00 [facility] RHO (D) IMMUNE GLOBULIN 2021-09-18 20:42:00 Ra garry [facility] SGOT (ASPARTATE AMINO TRANSFER) 2021-09-18 20:41:00 Degraffenrjeromy [facility] CREATININE 2021-09-18 20:41:00 Degraffesandro [facility] ALANINE AMINO TRANSFERASE(SGPT 2021-09-18 20:41:00 Degraffenreid, [facility] LACTATE DEHYDROGENASE 2021-09-18 20:41:00 Degraffenrei d, [facility] URIC ACID 2021-09-18 20:41:00 Degraffenreid, [facility] HEPATITIS B SURFACE ANTIGEN 2021-09-18 20:41:00 Diwght [facility] GALV ONLY - SYPHILIS IGG/IGM 2021-09-18 20:41:00 Dwight [facility] SGOT (ASPARTATE AMINO TRANSFER) 2021-09-18 20:41:00 Degraffenreid, [facility] CREATININE 2021-09-18 20:41:00 Degraffenreid, [facility] ALANINE AMINO TRANSFERASE(SGPT 2021-09-18 20:41:00 Degraffenreid, [facility] LACTATE DEHYDROGENASE 2021-09-18 20:41:00 Degraffenrei d, [facility] URIC ACID 2021-09-18 20:41:00 Degraffenreid, [facility] HEPATITIS B SURFACE ANTIGEN 2021-09-18 20:41:00 Dwight [facility] GALV ONLY - SYPHILIS IGG/IGM 2021-09-18 20:41:00 Dwight [facility] COVID-19 (ID NOW RAPID TESTING) 2021-09-18 19:30:00 [facility] COVID-19 (ID NOW RAPID TESTING) 2021-09-18 19:30:00 Cricket Shawn [facility] Plan of Care Planned Activity Planned Date Details Comments Source Goal Plan of Care Note [code = 42425-6] Goal Plan of Care Note [code = 99840-0] Goal Plan of Care Note [code = 49845-8] Goal Plan of Care Note [code = 01695-7] Goal Plan of Care Note [code = 88442-7] Goal Plan of Care Note [code = 54483-3] Goal Plan of Care Note [code = 92611-4] Goal Plan of Care Note [code = 38684-1] Goal Plan of Care Note [code = 37671-8] Goal Plan of Care Note [code = 49130-2] Goal Plan of Care Note [code = 32725-6] Goal Plan of Care Note [code = 62049-1] Goal Plan of Care Note [code = 08219-9] Goal Plan of Care Note [code = 37556-3] Goal Plan of Care Note [code = 78780-7] Goal Plan of Care Note [code = 19738-4] Goal Plan of Care Note [code = 64408-5] Goal Plan of Care Note [code = 36493-4] Goal Plan of Care Note [code = 22190-7] Goal Plan of Care Note [code = 65738-8] Goal Plan of Care Note [code = 40759-6] Goal Plan of Care Note [code = 93119-7] Goal Plan of Care Note [code = 42805-7] Goal Plan of Care Note [code = 87088-1] Encounters Start Date/Time End Date/Time Encounter Type Admission Type Attending [facility] Care Department Encounter ID Source 2024-01-14 00:00:00 2024-10-29 02:05:34 Orders Only Doctor Unassigned, [place] Doctor Unassigned, [place] [facility] 1..840.114 350.1.13.10 4.2.7.2.686 [id number] [facility] 2024-03-07 00:00:00 2024-04-09 18:23:08 Patient Secure Msg Doctor Unassigned, [place] [facility] 1..840.114 350.1.13.10 4.2.7.2.686 [id number] [facility] 2024-03-30 16:25:51 2024-03-30 16:25:51 Outpatient [facility] [id number] Jero Rodgers 2024-03-30 00:00:00 2024-03-30 00:00:00 Outpatient Visit [facility] [id number] Jero Rodgers 2024-03-15 07:21:54 2024-03-15 23:59:00 Outpatient R RADIOLOGY [facility] [id number] [facility] 2024-03-15 07:21:54 2024-03-15 23:59:[address] [facility] 1.2.840.114 350.1.13.10 4.2.7.2.686 [id number] [facility] 2024-03-01 16:42:40 2024-03-01 16:42:40 Outpatient [facility] [id number] Jero Rodgers 2024-03-01 00:00:00 2024-03-01 00:00:00 Outpatient Visit [facility] [id number] Jero Rodgers 2024-01-19 00:00:00 2024-02-20 18:24:58 Patient Secure Msg Doctor Unassigned, [place] [facility] 1.2.840.114 350.1.13.10 4.2.7.2.686 [id number] [facility] 2024-01-13 14:06:08 2024-01-13 14:06:08 Outpatient [facility] [id number] Jero Rodgers 2024-01-13 00:00:00 2024-01-13 00:00:00 Outpatient Visit [facility] [id number] Jero Rodgers 2024-01-11 11:38:04 2024-01-11 11:38:04 Outpatient [facility] [id number] Jero Rodgers 2023-12-16 17:01:43 2023-12-16 17:01:43 Outpatient [facility] [id number] Jero Rodgers 2023-06-05 09:19:01 2023-06-05 09:19:01 Outpatient [facility] [id number] Jero Rodgers 2022-11-13 13:53:15 2022-11-13 13:53:15 Outpatient [facility] [id number] Jero Rodgers 2022-08-19 13:00:30 2022-08-19 13:00:30 Outpatient [facility] [id number] Jero Rodgers 2022-08-18 13:40:51 2022-08-18 13:40:51 Outpatient [facility] [id number] Jero Rodgers 2022-08-11 15:00:00 2022-08-11 15:00:00 Outpatient R [facility] [id number] [facility] 2022-08-11 13:30:00 2022-08-11 14:10:41 Outpatient R GLADYS RUBIN [facility] [id number] [facility] 2022-08-11 13:30:00 2022-08-11 14:10:41 Nurse Visit Nurse, Christopher Rmchp Exp Cprit Obgyn Gladys Rubin [facility] COMPUTERIZED TABLE [facility]NAL [facility] 1.840.114 350.1.13.10 4.2.7.2.686 [id number] [facility] 2022-08-11 00:00:00 2022-08-11 00:00:00 Orders Only Doctor Unassigned, [place] [facility] 1..840.114 350.1.13.10 4.2.7.2.686 [id number] [facility] 2022-08-05 15:00:00 2022-08-05 15:00:00 Outpatient R GLADYS RUBIN [facility] [id number] [facility] 2022-05-20 00:00:00 2022-05-20 00:00:00 Outpatient Visit [id number] 2022-04-13 00:00:00 2022-04-13 00:00:00 RefChris Baldwin [facility] COMPUTERIZED TABLE [facility]ILD [facility] 1.2840.114 350.1.13.10 4.2.7.2.686 [id number] [facility] 2022-03-15 00:00:00 2022-03-15 00:00:00 Refill Carlos Sheets [facility] COMPUTERIZED TABLE [facility] & [facility]ILD [facility] 1.2840.114 350.1.13.10 4.2.7.2.686 [id number] [facility] 2022-02-17 13:30:00 2022-02-17 13:30:00 Outpatient R [facility] [id number] [facility] 2022-02-01 00:00:00 2022-02-01 00:00:00 Chris Mcrae [facility] COMPUTERIZED TABLE [facility]ILD [facility] 1.20.114 350.1.13.10 4.2.7.2.686 [id number] [facility] 2021-10-21 00:00:00 2021-10-21 00:00:00 Leonor Floyd [facility] 1.284.114 350.1.13.10 4.2.7.2.686 [id number] [facility] 2021-09-27 12:43:00 2021-09-28 19:35:00 Outpatient P LEONOR MOELLER [facility] [id number] [facility] 2021-09-27 12:43:00 2021-09-28 19:35:00 Hospital Encounter Leonor Moeller [facility] 1.2840.114 350.1.13.10 4.2.7.2.686 [id number] [facility] 2021-09-26 10:00:00 2021-09-26 10:32:24 Nurse Visit Visit, Ang-Rmchp Nurse Carlos Sheets [facility] COMPUTERIZED TABLE [facility] MAT[facility]NAL & CHILD [facility] 1.2.840.114 350.1.13.10 4.2.7.2.686 [id number] [facility] 2021-09-26 10:00:00 2021-09-26 10:00:00 Outpatient CARLOS ANNA [facility] [id number] [facility] 2021-09-24 13:45:00 2021-09-24 13:45:00 Outpatient CARLOS ANNA [facility] [id number] [facility] 2021-09-23 00:00:00 2021-09-23 00:00:00 Telephone Carlos Sheets [facility] COMPUTERIZED TABLE [facility]ILD [facility] 1.2.840.114 350.1.13.10 4.2.7.2.686 [id number] [facility] 2021-09-23 00:00:00 2021-09-23 00:00:00 Chris Mcrae [facility] COMPUTERIZED TABLE [facility] 1.2.840.114 350.1.13.10 4.2.7.2.686 [id number] [facility] 2021-09-22 00:00:00 2021-09-22 00:00:00 Nurse Triage Sarika Jackson [facility] 1.2.840.114 350.1.13.10 4.2.7.2.686 [id number] [facility] 2021-09-18 13:20:00 2021-09-20 17:02:00 Inpatient P SHAWN HARLEY [facility] [id number] [facility] 2021-09-18 13:20:00 2021-09-20 17:02:00 Hospital Encounter Shawn Harley [facility] 1.2.840.114 350.1.13.10 4.2.7.2.686 [id number] [facility] 2021-09-19 04:40:00 2021-09-19 06:21:00 Surgery Morenita Mckeon [facility] 1.2.840.114 350.1.13.10 4.2.7.2.686 [id number] [facility] 2021-09-18 15:23:00 2021-09-18 15:23:00 Anesthesia Event Valentin NaeemJf Angela B [facility] 1.2.840.114 350.1.13.10 4.2.7.2.686 [id number] [facility] 2021-09-18 13:20:00 2021-09-18 13:20:00 Inpatient SHAWN SINGH [facility] [id number] [facility] 2021-09-18 00:00:00 2021-09-18 00:00:00 Telephone Carlos Sheets [facility] COMPUTERIZED TABLE [facility]ILD [facility] 1.2.840.114 350.1.13.10 4.2.7.2.686 [id number] [facility] 2021-09-18 00:00:00 2021-09-18 00:00:00 Telephone Gladys Rubin [facility] COMPUTERIZED TABLE [facility]ILD [facility] 1.2.840.114 350.1.13.10 4.2.7.2.686 [id number] [facility] 2021-09-17 12:45:00 2021-09-17 13:33:04 Outpatient R CARLOS SHEETS [facility] [id number] [facility] 2021-09-17 12:45:00 2021-09-17 13:33:04 Routine Visit Carlos Sheets [facility] COMPUTERIZED TABLE [facility]ILD [facility] 1.2.840.114 350.1.13.10 4.2.7.2.686 [id number] [facility] 2021-09-17 12:45:00 2021-09-17 13:33:04 Outpatient R SHEETSCARLOS [facility] [id number] [facility] 2021-09-16 00:00:00 2021-09-16 00:00:00 Telephone Suyapa Sheetscorina [facility] COMPUTERIZED TABLE [facility] & CHILD [facility] 1.2.840.114 350.1.13.10 4.2.7.2.686 [id number] [facility] 2021-09-12 13:45:00 2021-09-12 13:45:00 Outpatient R CHRIS ROBERSON [facility] [id number] [facility] 2021-09-11 07:45:00 2021-09-11 09:00:00 Outpatient P LACHO YUNG [facility] [id number] [facility] 2021-09-11 07:45:00 2021-09-11 09:00:00 [address] En[address] Lacho Yung [facility] 1.2.840.114 350.1.13.10 4.2.7.2.686 [id number] [facility] 2021-09-09 22:23:00 2021-09-10 11:15:00 Outpatient P LACHO YUNG [facility] [id number] [facility] 2021-09-09 22:23:00 2021-09-10 11:15:00 [address] En[address] Lacho Yung [facility] 1.2.840.114 350.1.13.10 4.2.7.2.686 [id number] [facility] 2021-09-09 00:00:00 2021-09-09 00:00:00 Nurse Triage Harika Odell [facility] 1.2.840.114 350.1.13.10 4.2.7.2.686 [id number] [facility] 2021-09-09 00:00:00 2021-09-09 00:00:00 Orders Only Doctor Unassigned, [place] [facility] 1.2.840.114 350.1.13.10 4.2.7.2.686 [id number] [facility] 2021-08-29 10:15:00 2021-08-29 10:44:43 Outpatient R CHRIS ROBERSON [facility] [id number] [facility] 2021-08-29 10:15:00 2021-08-29 10:44:43 Routine Visit Chris Roberson [facility] COMPUTERIZED TABLE [facility] MATERNAL & CHILD [facility] 1.2.840.114 350.1.13.10 4.2.7.2.686 [id number] [facility] 2021-08-23 00:00:00 2021-08-23 00:00:00 Chris Mcrae [facility] COMPUTERIZED TABLE [facility]ILD [facility] 1.2.840.114 350.1.13.10 4.2.7.2.686 [id number] [facility] 2021-08-21 00:00:00 2021-08-21 00:00:00 Chris Mcrae [facility] COMPUTERIZED TABLE [facility]ILD [facility] 1.2.840.114 350.1.13.10 4.2.7.2.686 [id number] [facility] 2021-08-15 14:45:00 2021-08-15 15:37:02 Outpatient ALEXX LIMA [facility] [id number] [facility] 2021-08-15 14:39:21 2021-08-15 15:37:02 Routine Visit Provider, Alexx Love [facility] COMPUTERIZED TABLE [facility] CHILD [facility] 1.2.840.114 350.1.13.10 4.2.7.2.686 [id number] [facility] 2021-08-01 15:45:00 2021-08-01 16:30:13 Outpatient R CHRIS ROBERSON [facility] [id number] [facility] 2021-08-01 15:30:56 2021-08-01 16:30:13 Routine Visit Chris Roberson [facility] COMPUTERIZED TABLE [facility] MAT[facility]NAL & CHILD [facility] 1.84.114 350.1.13.10 4.2.7.2.686 [id number] [facility] 2021-08-01 15:45:00 2021-08-01 15:45:00 Outpatient R CHRIS ROBERSON [facility] [id number] [facility] 2021-07-24 08:01:28 2021-07-24 08:12:36 Studio Assistant Visit Lab, Ang-Rmchp Chris Roberson [facility] COMPUTERIZED TABLE [facility] CHILD [facility] 1..840.114 350.1.13.10 4.2.7.2.686 [id number] [facility] 2021-07-24 08:00:00 2021-07-24 08:00:00 Outpatient R CHRIS ROBERSON [facility] [id number] [facility] 2021-07-22 00:00:00 2021-07-22 00:00:00 Telephone Chris Roberson [facility] COMPUTERIZED TABLE [facility]ILD [facility] 1..840.114 350.1.13.10 4.2.7.2.686 [id number] [facility] 2021-07-19 10:00:17 2021-07-19 10:59:15 Routine Visit Chris Roberson [facility] COMPUTERIZED TABLE [facility]ILD [facility] 1.2840.114 350.1.13.10 4.2.7.2.686 [id number] [facility] 2021-07-19 10:00:00 2021-07-19 10:59:15 Outpatient CHRIS PORTER [facility] [id number] [facility] 2021-07-19 00:00:00 2021-07-19 00:00:00 Orders Only Doctor Unassigned, [place] [facility] 1.2.114 350.1.13.10 4.2.7.2.686 [id number] [facility] 2021-07-05 10:45:00 2021-07-05 10:45:00 Outpatient CHRIS PORTER [facility] [id number] [facility] 2021-07-04 00:00:00 2021-07-04 00:00:00 Telephone Chris Roberson [facility] COMPUTERIZED TABLE [facility]ILD [facility] 1.840.114 350.1.13.10 4.2.7.2.686 [id number] [facility] 2021-06-27 11:03:24 2021-06-27 11:52:11 Routine Visit Chris Roberson [facility] COMPUTERIZED TABLE [facility] MAT[facility]NAL & CHILD [facility] 1.284.114 350.1.13.10 4.2.7.2.686 [id number] [facility] 2021-06-27 11:00:00 2021-06-27 11:00:00 Outpatient CHRIS PORTER [facility] [id number] [facility] 2021-06-10 12:45:36 2021-06-10 13:24:31 Routine Visit Carlos Sheets [facility] COMPUTERIZED TABLE [facility] CHILD [facility] 1.2840.114 350.1.13.10 [id number] [facility] 2021-06-10 12:45:00 2021-06-10 12:45:00 Outpatient R CARLOS SHEETS [facility] [id number] [facility] 2021-06-04 15:00:00 2021-06-04 15:00:00 Outpatient R CHRIS ROBERSON [facility] [id number] [facility] 2021-05-30 13:30:00 2021-05-30 13:30:00 Outpatient CHRIS PORTER [facility] [id number] [facility] 2021-05-22 12:57:11 2021-05-22 14:12:11 Studio Assistant Visit Ultrasound, Preston Hinds [facility] COMPUTERIZED TABLE [facility] & CHILD [facility] [id number] [facility] 2021-05-22 13:00:00 2021-05-22 13:00:00 Outpatient P [facility] [id number] [facility] 2021-05-08 08:48:24 2021-05-08 10:00:49 Routine Visit Risk, KristynRmchp-N p/Audrey Pathak [facility] COMPUTERIZED TABLE [facility]ILD [facility] [id number] [facility] 2021-05-08 09:00:00 2021-05-08 09:00:00 Outpatient R [facility] [id number] [facility] 2021-04-30 13:15:00 2021-04-30 13:15:00 Outpatient CHRIS PORTER [facility] [id number] [facility] 2021-04-02 13:00:00 2021-04-02 13:00:00 Outpatient CHRIS PORTER [facility] [id number] [facility] 2021-03-11 08:15:00 2021-03-11 08:15:00 Outpatient R SHEETS, ROSHUNDA [facility] [id number] [facility] 2021-03-06 09:30:00 2021-03-06 09:30:00 Outpatient CARLOS ANNA [facility] [id number] [facility] 2021-03-05 13:00:00 2021-03-05 13:00:00 Outpatient Ruth ROBERSONCHRIS [facility] [id number] [facility] 2021-02-28 10:00:00 2021-02-28 10:00:00 Outpatient P [facility] [id number] [facility] 2021-02-05 13:15:00 2021-02-05 13:15:00 Outpatient R [facility] [id number] [facility] Results Test Description Test Time Test Comments Results Resul t Comments Source CT HEAD WO CONTRAST 2024-03-15 14:37:56 FULL RESULT: Examination: CT HEAD WO CONTRAST on 03/15/2024 7:23 AM Clinical Indication: Papilledema, headaches Comparison: None Technique: Noncontrast imaging was obtained from base to vertex. Findings: The sulci and ventricles were unremarkable. There was no evidencefor mass lesion, hemorrhage, or underlying edema. There were no bony,sinonasal or skull base lesions. [facility] REFERRAL- REQUEST/RESPONSE 2024-01-14 16:34:59 Ordered by an unspecified provider. [facility] Jero Hughes [id number] 00:00:00* Test Item Value Reference Range Interpretation Comme nts CULTURE, STOOL (test code = 00631) SPECIMEN NUMBER: [id number] Jero RodgersCUBERNARDA, [id number] 00:00:00* Test Item Value Reference Range Interpretation Comme nts CULTURE, STOOL (test code = 25733) SPECIMEN NUMBER: [id number] Jero Saxena [facility] W/AUTO [id number] 00:00:00* Test Item Value Reference Range Interpretation Comme nts WBC (test code = 1001) 5.7 K/UL RBC (test code = 1002) 4.34 M/UL HEMOGLOBIN (test code = 1003) 12.1 G/DL HEMATOCRIT (test code = 1004) 36.8 % MCV (test code = 1005) 84.8 fL MCH (test code = 1006) 27.9 PG MCHC (test code = 1007) 32.9 G/DL RDW (test code = 1038) 13.4 % NEUTROPHILS (test code = 1008) 40.0 % LYMPHOCYTES (test code = 1010) 50.0 % MONOCYTES (test code = 1011) 7.1 % EOSINOPHILS (test code = 1012) 2.4 % BASOPHILS (test code = 1013) 0.3 % IMMATURE GRANULOCYTES (test code = 1036) 0.2 % NUCLEATED RBCS (test code = 1065) 0.0 /100WBC'S PLATELET COUNT (test code = 1015) 421 K/UL ABSOLUTE NEUTROPHILS (test c ode = 1066) 2.29 K/UL ABSOLUTE LYMPHOCYTES (test c ode = 1067) 2.87 K/UL ABSOLUTE MONOCYTES (test cod e = 1068) 0.41 K/UL ABSOLUTE EOSINOPHILS (test c ode = 1040) 0.14 K/UL ABSOLUTE BASOPHILS (test cod e = 1069) 0.02 K/UL ABS IMMATURE GRANULOCYTES (t est code = 1020) 0.01 K/UL ABS NUCLEATED RBCS (test cod e = 38674) 0.00 K/UL Jero RodgersCOMPREHENSIVE METABOLIC [id number] 00:00:00* Test Item Value Reference Range Interpretation Comme nts GLUCOSE (test code = 2217) 83 MG/DL BUN (test code = 2208) 7 MG/DL CREATININE (test code = 2214) 0.73 MG/DL eGFR (2020 CKD-EPI) (test code = 83597) 111 ML/MIN/1.73 CALC BUN/CREAT (test code = 2235) 10 RATIO SODIUM (test code = 2231) 141 MEQ/L POTASSIUM (test code = 2228) 4.2 MEQ/L CHLORIDE (test code = 2215) 106 MEQ/L CARBON DIOXIDE (test code = 2206) 24 MEQ/L CALCIUM (test code = 2209) 9.3 MG/DL PROTEIN, TOTAL (test code = 2229) 7.4 G/DL ALBUMIN (test code = 2201) 4.0 G/DL CALC GLOBULIN (test code = 2240) 3.4 G/DL CALC A/G RATIO (test code = 2234) 1.2 RATIO BILIRUBIN, TOTAL (test code = 2207) <0.2 MG/DL ALKALINE PHOSPHATASE (test code = 2204) 98 U/L AST (test code = 2218) 22 U/L ALT (test code = 2219) 67 U/L Jero RodgersCBC W/AUTO [id number] 00:00:00* Test Item Value Reference Range Interpretation Comme nts WBC (test code = 1001) 5.7 K/UL RBC (test code = 1002) 4.34 M/UL HEMOGLOBIN (test code = 1003) 12.1 G/DL HEMATOCRIT (test code = 1004) 36.8 % MCV (test code = 1005) 84.8 fL MCH (test code = 1006) 27.9 PG MCHC (test code = 1007) 32.9 G/DL RDW (test code = 1038) 13.4 % NEUTROPHILS (test code = 1008) 40.0 % LYMPHOCYTES (test code = 1010) 50.0 % MONOCYTES (test code = 1011) 7.1 % EOSINOPHILS (test code = 1012) 2.4 % BASOPHILS (test code = 1013) 0.3 % IMMATURE GRANULOCYTES (test code = 1036) 0.2 % NUCLEATED RBCS (test code = 1065) 0.0 /100WBC'S PLATELET COUNT (test code = 1015) 421 K/UL ABSOLUTE NEUTROPHILS (test c ode = 1066) 2.29 K/UL ABSOLUTE LYMPHOCYTES (test c ode = 1067) 2.87 K/UL ABSOLUTE MONOCYTES (test cod e = 1068) 0.41 K/UL ABSOLUTE EOSINOPHILS (test c ode = 1040) 0.14 K/UL ABSOLUTE BASOPHILS (test cod e = 1069) 0.02 K/UL ABS IMMATURE GRANULOCYTES (t est code = 1020) 0.01 K/UL ABS NUCLEATED RBCS (test cod e = 95523) 0.00 K/UL Jero RodgersCOMPREHENSIVE METABOLIC [id number] 00:00:00* Test Item Value Reference Range Interpretation Comme nts GLUCOSE (test code = 2217) 83 MG/DL BUN (test code = 2208) 7 MG/DL CREATININE (test code = 2214) 0.73 MG/DL eGFR (2020 CKD-EPI) (test code = 09803) 111 ML/MIN/1.73 CALC BUN/CREAT (test code = 2235) 10 RATIO SODIUM (test code = 2231) 141 MEQ/L POTASSIUM (test code = 2228) 4.2 MEQ/L CHLORIDE (test code = 2215) 106 MEQ/L CARBON DIOXIDE (test code = 2206) 24 MEQ/L CALCIUM (test code = 2209) 9.3 MG/DL PROTEIN, TOTAL (test code = 2229) 7.4 G/DL ALBUMIN (test code = 2201) 4.0 G/DL CALC GLOBULIN (test code = 2240) 3.4 G/DL CALC A/G RATIO (test code = 2234) 1.2 RATIO BILIRUBIN, TOTAL (test code = 2207) <0.2 MG/DL ALKALINE PHOSPHATASE (test code = 2204) 98 U/L AST (test code = 2218) 22 U/L ALT (test code = 2219) 67 U/L [facility] [id number] 00:00:00* Test Item Value Reference Range Interpretation Comme nts WBC (test code = 1001) 5.7 K/UL RBC (test code = 1002) 4.34 M/UL HEMOGLOBIN (test code = 1003) 12.1 G/DL HEMATOCRIT (test code = 1004) 36.8 % MCV (test code = 1005) 84.8 fL MCH (test code = 1006) 27.9 PG MCHC (test code = 1007) 32.9 G/DL RDW (test code = 1038) 13.4 % NEUTROPHILS (test code = 1008) 40.0 % LYMPHOCYTES (test code = 1010) 50.0 % MONOCYTES (test code = 1011) 7.1 % EOSINOPHILS (test code = 1012) 2.4 % BASOPHILS (test code = 1013) 0.3 % IMMATURE GRANULOCYTES (test code = 1036) 0.2 % NUCLEATED RBCS (test code = 1065) 0.0 /100WBC'S PLATELET COUNT (test code = 1015) 421 K/UL ABSOLUTE NEUTROPHILS (test c ode = 1066) 2.29 K/UL ABSOLUTE LYMPHOCYTES (test c ode = 1067) 2.87 K/UL ABSOLUTE MONOCYTES (test cod e = 1068) 0.41 K/UL ABSOLUTE EOSINOPHILS (test c ode = 1040) 0.14 K/UL ABSOLUTE BASOPHILS (test cod e = 1069) 0.02 K/UL ABS IMMATURE GRANULOCYTES (t est code = 1020) 0.01 K/UL ABS NUCLEATED RBCS (test cod e = 80138) 0.00 K/UL Jero RodgersCOMPREHENSIVE METABOLIC [id number] 00:00:00* Test Item Value Reference Range Interpretation Comme nts GLUCOSE (test code = 2217) 83 MG/DL BUN (test code = 2208) 7 MG/DL CREATININE (test code = 2214) 0.73 MG/DL eGFR (2020 CKD-EPI) (test code = 00015) 111 ML/MIN/1.73 CALC BUN/CREAT (test code = 2235) 10 RATIO SODIUM (test code = 2231) 141 MEQ/L POTASSIUM (test code = 2228) 4.2 MEQ/L CHLORIDE (test code = 2215) 106 MEQ/L CARBON DIOXIDE (test code = 2206) 24 MEQ/L CALCIUM (test code = 2209) 9.3 MG/DL PROTEIN, TOTAL (test code = 2229) 7.4 G/DL ALBUMIN (test code = 2201) 4.0 G/DL CALC GLOBULIN (test code = 2240) 3.4 G/DL CALC A/G RATIO (test code = 2234) 1.2 RATIO BILIRUBIN, TOTAL (test code = 2207) <0.2 MG/DL ALKALINE PHOSPHATASE (test code = 2204) 98 U/L AST (test code = 2218) 22 U/L ALT (test code = 2219) 67 U/L Jero Saxena VishalCOMP. METABOLIC PANEL (21624)2021-09-27 22:28:12* Test Item Value Reference Range Interpretation Comme nts NA (test code = 9532353897) 138 mmol/L 135-145 K (test code = 7824059122) 3.9 mmol/L 3.5-5.0 CL (test code = 2868776118) 107 mmol/L 98-108 CO2 TOTAL (test code = 4727607905) 24 mmol/L 23-31 AGAP (test code = 5114362100) 2-16 BUN (test code = 7572866229) 12 mg/dL 7-23 GLUCOSE (test code = 3937663156) 78 mg/dL 70-110 CREATININE (test code = 3075030384) 0.72 mg/dL 0.50-1.04 TOTAL BILI (test code = 8376998272) 0.7 mg/dL 0.1-1.1 CALCIUM (test code = 7100204769) 8.8 mg/dL 8.6-10.6 T PROTEIN (test code = 1131635112) 7.6 g/dL 6.3-8.2 ALBUMIN (test code = 4138829896) 3.7 g/dL 3.5-5.0 ALK PHOS (test code = 9674149040) 363 U/L 34-122 H ALTv (test code = 1742-6) 104 U/L 5-35 H AST(SGOT) (test code = 3137740080) 73 U/L 13-40 H eGFR (test code = 1729244726) mL/min/1.73m2 DANIKA (test code = DANIKA) Association of Glomerular Filtration Rate (GFR) and Staging of Kidney Disease* + --+ --+ ------+| GFR (mL/min/1.73 m2) ?| With Kidney Damage ?| ?Without Kidney Damage+ --------+ --------+ +| ?>90 ?| ?Stage one ?| ? Normal ?+ ---+ ---+ -------+| ?60-89 ?| ?Stage two ?| ? Decreased GFR ? + --+ --+ ------+| ?30-59 ?| ?Stage three ?| ? Stage three ? + --+ --+ ------+| ?15-29 ?| ?Stage four ? | ? Stage four ?+ ---+ ---+ -------+| ?<15 (or dialysis) ? ?| ?Stage five ? | ? Stage five ?+ ---+ ---+ -------+ *Each stage assumes the associated GFR level has been in effect for at least three months. ?Stages 1 to 5, with or without kidney disease, indicate chronic kidney disease. Notes: Determination of stages one and two (with eGFR >59mL/min/1.73 m2) requires estimation of kidney damage for at least three months as defined by structural or functional abnormalities of the kidney, manifested by either:Pathological abnormalities or Markers of kidney damage (including abnormalities in the composition of the blood or urine or abnormalities in imaging tests). Lab Interpretation (test code = 01453-5) [facility] [id number] 22:27:52* Test Item Value Reference Range Interpretation Comme [facility] URIC ACID (test code = 6087608122) 5.7 mg/dL 2.9-6.0 Lab Interpretation (test cod e = 74783-4) Normal [facility] CenterSerum Orhlygigoh3769-60-98 22:26:51* Test Item Value Reference Range Interpretation Comme [facility] CREATININE (test code = 1238815193) 0.72 mg/dL 0.50-1.04 eGFR (test code = 6797007251) mL/min/1.73m2 DANIKA (test code = DANIKA) Association of Glomerular Filtration Rate (GFR) and Staging of Kidney Disease* + + +- +| GFR (mL/min/1.73 m2) ?| With Kidney Damage ?| ?Without Kidney Damage+ ------+ ----+ ------+| ?>90 ?| ?Stage one ?| ? Normal ?+ -+ + -+| ?60-89 ?| ?Stage two ?| ? Decreased GFR ? + + +- +| ?30-59 ?| ?Stage three ?| ? Stage three ? + + +- +| ?15-29 ?| ?Stage four ? | ? Stage four ?+ -+ + -+| ?<15 (or dialysis) ? ?| ?Stage five ? | ? Stage five ?+ -+ + -+ *Each stage assumes the associated GFR level has been in effect for at least three months. ?Stages 1 to 5, with or without kidney disease, indicate chronic kidney disease. Notes: Determination of stages one and two (with eGFR >59mL/min/1.73 m2) requires estimation of kidney damage for at least three months as defined by structural or functional abnormalities of the kidney, manifested by either:Pathological abnormalities or Markers of kidney damage (including abnormalities in the composition of the blood or urine or abnormalities in imaging tests). [facility] Iliboxoezttov4618-86-77 22:24:49* Test Item Value Reference Range Interpretation Comme nts LDH (test code = 0281330664) 601 U/L 300-600 H Lab Interpretation (test cod e = 37752-0) Abnormal [facility] with Swkctcveudkc3707-72-19 20:48:09* Test Item Value Reference Range Interpretation Comme nts WBC (test code = 6690-2) See_Comment [Automated messa ge] The system which generated this result transmitted reference range: 4.30 - 11.10 10*3/?L. The reference range was not used to interpret this result as normal/abnormal. RBC (test code = 789-8) See_Comment L [Automated messa ge] The system which generated this result transmitted reference range: 3.93 - 5.25 10*6/?L. The reference range was not used to interpret this result as normal/abnormal. HGB (test code = 718-7) 9.8 g/dL 11.6-15.0 L HCT (test code = 4544-3) 30.6 % 35.7-45.2 L MCV (test code = 787-2) 84.1 fL 80.6-95.5 MCH (test code = 785-6) 26.9 pg 25.9-32.8 MCHC (test code = 786-4) 32.0 g/dL 31.6-35.1 RDW-SD (test code = 09549-8) 45.0 fL 39.0-49.9 RDW-CV (test code = 788-0) 14.6 % 12.0-15.5 PLT (test code = 777-3) See_Comment H [Automated messa ge] The system which generated this result transmitted reference range: 166 - 358 10*3/?L. The reference range was not used to interpret this result as normal/abnormal. MPV (test code = 01670-9) 10.1 fL 9.5-12.9 NRBC/100 WBC (test code = 8744949646) See_Comment [Automated me ssage] The system which generated this result transmitted reference range: 0.0 - 10.0 /100 WBCs. The reference range was not used to interpret this result as normal/abnormal. NRBC x10^3 (test code = 8813314839) <0.01 See_Comment [Automated messa ge] The system which generated this result transmitted reference range: 10*3/?L. The reference range was not used to interpret this result as normal/abnormal. GRAN MAT (NEUT) % (test code = 770-8) 58.5 % IMM GRAN % (test code = 7743033955) 1.10 % LYMPH % (test code = 736-9) 26.0 % MONO % (test code = 5905-5) 9.9 % EOS % (test code = 713-8) 3.9 % BASO % (test code = 706-2) 0.6 % GRAN MAT x10^3(ANC) (test code = 5643584636) 3.73 10*3/uL 1.88-7.09 IMM GRAN x10^3 (test code = 8852451303) 0.07 10*3/uL 0.00-0.06 H LYMPH x10^3 (test code = 731-0) 1.66 10*3/uL 1.32-3.29 MONO x10^3 (test code = 742-7) 0.63 10*3/uL 0.33-0.92 EOS x10^3 (test code = 711-2) 0.25 10*3/uL 0.03-0.39 BASO x10^3 (test code = 704-7) 0.04 10*3/uL 0.01-0.07 Lab Interpretation (test code = 01089-9) Abnormal [facility] with Donllivvyjwv6790-63-09 11:29:46* Test Item Value Reference Range Interpretation Comme nts WBC (test code = 6690-2) See_Comment H [Automated messa ge] The system which generated this result transmitted reference range: 4.30 - 11.10 10*3/?L. The reference range was not used to interpret this result as normal/abnormal. RBC (test code = 789-8) See_Comment L [Automated messa ge] The system which generated this result transmitted reference range: 3.93 - 5.25 10*6/?L. The reference range was not used to interpret this result as normal/abnormal. HGB (test code = 718-7) 9.2 g/dL 11.6-15.0 L HCT (test code = 4544-3) 29.7 % 35.7-45.2 L MCV (test code = 787-2) 86.8 fL 80.6-95.5 MCH (test code = 785-6) 26.9 pg 25.9-32.8 MCHC (test code = 786-4) 31.0 g/dL 31.6-35.1 L RDW-SD (test code = 17353-7) 47.9 fL 39.0-49.9 RDW-CV (test code = 788-0) 15.3 % 12.0-15.5 PLT (test code = 777-3) See_Comment H [Automated Postabona ge] The system which generated this result transmitted reference range: 166 - 358 10*3/?L. The reference range was not used to interpret this result as normal/abnormal. MPV (test code = 62397-6) 10.6 fL 9.5-12.9 NRBC/100 WBC (test code = 2714529137) See_Comment [Automated DocSend ssage] The system which generated this result transmitted reference range: 0.0 - 10.0 /100 WBCs. The reference range was not used to interpret this result as normal/abnormal. NRBC x10^3 (test code = 9786538140) <0.01 See_Comment [Automated Postabona ge] The system which generated this result transmitted reference range: 10*3/?L. The reference range was not used to interpret this result as normal/abnormal. GRAN MAT (NEUT) % (test code = 770-8) 68.0 % IMM GRAN % (test code = 3431431439) 0.50 % LYMPH % (test code = 736-9) 20.0 % MONO % (test code = 5905-5) 9.8 % EOS % (test code = 713-8) 1.4 % BASO % (test code = 706-2) 0.3 % GRAN MAT x10^3(ANC) (test code = 3889574676) 8.01 10*3/uL 1.88-7.09 H IMM GRAN x10^3 (test code = 0590074224) 0.06 10*3/uL 0.00-0.06 LYMPH x10^3 (test code = 731-0) 2.36 10*3/uL 1.32-3.29 MONO x10^3 (test code = 742-7) 1.15 10*3/uL 0.33-0.92 H EOS x10^3 (test code = 711-2) 0.17 10*3/uL 0.03-0.39 BASO x10^3 (test code = 704-7) 0.03 10*3/uL 0.01-0.07 Lab Interpretation (test code = 62969-0) Abnormal [facility] with Caagecvvslub1720-84-24 11:29:46* Test Item Value Reference Range Interpretation Comme nts WBC (test code = 6690-2) See_Comment H [Automated messa ge] The system which generated this result transmitted reference range: 4.30 - 11.10 10*3/?L. The reference range was not used to interpret this result as normal/abnormal. RBC (test code = 789-8) See_Comment L [Automated messa ge] The system which generated this result transmitted reference range: 3.93 - 5.25 10*6/?L. The reference range was not used to interpret this result as normal/abnormal. HGB (test code = 718-7) 9.2 g/dL 11.6-15.0 L HCT (test code = 4544-3) 29.7 % 35.7-45.2 L MCV (test code = 787-2) 86.8 fL 80.6-95.5 MCH (test code = 785-6) 26.9 pg 25.9-32.8 MCHC (test code = 786-4) 31.0 g/dL 31.6-35.1 L RDW-SD (test code = 97978-3) 47.9 fL 39.0-49.9 RDW-CV (test code = 788-0) 15.3 % 12.0-15.5 PLT (test code = 777-3) See_Comment H [Automated messa ge] The system which generated this result transmitted reference range: 166 - 358 10*3/?L. The reference range was not used to interpret this result as normal/abnormal. MPV (test code = 23897-5) 10.6 fL 9.5-12.9 NRBC/100 WBC (test code = 7043467203) See_Comment [Automated me ssage] The system which generated this result transmitted reference range: 0.0 - 10.0 /100 WBCs. The reference range was not used to interpret this result as normal/abnormal. NRBC x10^3 (test code = 3480386822) <0.01 See_Comment [Automated messa ge] The system which generated this result transmitted reference range: 10*3/?L. The reference range was not used to interpret this result as normal/abnormal. GRAN MAT (NEUT) % (test code = 770-8) 68.0 % IMM GRAN % (test code = 7202599843) 0.50 % LYMPH % (test code = 736-9) 20.0 % MONO % (test code = 5905-5) 9.8 % EOS % (test code = 713-8) 1.4 % BASO % (test code = 706-2) 0.3 % GRAN MAT x10^3(ANC) (test code = 0882503477) 8.01 10*3/uL 1.88-7.09 H IMM GRAN x10^3 (test code = 4569483224) 0.06 10*3/uL 0.00-0.06 LYMPH x10^3 (test code = 731-0) 2.36 10*3/uL 1.32-3.29 MONO x10^3 (test code = 742-7) 1.15 10*3/uL 0.33-0.92 H EOS x10^3 (test code = 711-2) 0.17 10*3/uL 0.03-0.39 BASO x10^3 (test code = 704-7) 0.03 10*3/uL 0.01-0.07 Lab Interpretation (test code = 65801-6) [facility] SYPHILIS IGG/LIF7796-10-84 16:58:20* Test Item Value Reference Range Interpretation Comme nts Syphilis IgG/IgM (test code = 25339-1) Non-reactive Non-reactive DANIKA (test code = DANIKA) Non-reactive - No serologic evidence of T. pallidum infection. Cannot exclude incubating or early syphilis. Submit a second specimen in 2-4 weeks if syphilis is clinically suspected. Equivocal - Further testing to follow. Reactive - Further testing to follow. Lab Interpretation (test code = 08872-6) [facility] SYPHILIS IGG/[id number] 16:58:20* Test Item Value Reference Range Interpretation Comme nts Syphilis IgG/IgM (test code = 39261-5) Non-reactive Non-reactive DANIKA (test code = DANIKA) Non-reactive - No serologic evidence of T. pallidum infection. Cannot exclude incubating or early syphilis. Submit a second specimen in 2-4 weeks if syphilis is clinically suspected. Equivocal - Further testing to follow. Reactive - Further testing to follow. Lab Interpretation (test code = 84447-0) Normal [facility] (D) IMMUNE PPCDYRFU1812-09-46 14:50:11* Test Item Value Reference Range Interpretation Comme nts RHIG CANDIDATE? (test code = 5055) No- see comment Patient is not a candidate for RhIg- Patient is Rh Positive.Performed at [facility] Laboratory Services - [facility] Blood [address] Free: [phone] No. [id number] [facility] (D) IMMUNE WQSUWWFQ3631-09-37 14:50:11* Test Item Value Reference Range Interpretation Comme nts RHIG CANDIDATE? (test code = 5055) No- see comment Patient is not a candidate for RhIg- Patient is Rh Positive.Performed at [facility] Laboratory Services - [facility] Blood [address] Free: [phone] No. [id number] [facility] CenterH[facility] [id number] 14:06:30* Test Item Value Reference Range Interpretation Comme nts HCV Ab (test code = 52298-6) Negative HCV Semi-Quantitative (test code = 62681-5) [facility] ZLYONAUV8556-01-47 14:06:30* Test Item Value Reference Range Interpretation Comme nts HCV Ab (test code = 85759-1) Negative HCV Semi-Quantitative (test code = 38701-3) [facility] Center[facility]ORD [id number] 11:45:41* Test Item Value Reference Range Interpretation Comme nts BASE EXCESS, CORD (test code = 9715670654) mEq/L AC PH, CORD (BEAKER) (test code = 0444651902) 7.18-7.38 PC02, CORD (test code = 3450540689) See_Comment [Automated messa ge] The system which generated this result transmitted reference range: 32 - 66 mmHg. The reference range was not used to interpret this result as normal/abnormal. PO2, CORD (test code = 2916139187) See_Comment [Automated messa ge] The system which generated this result transmitted reference range: 10 - 30 mmHg. The reference range was not used to interpret this result as normal/abnormal. BICARBONATE, CORD (test code = 3161107000) See_Comment [Automated messa ge] The system which generated this result transmitted reference range: 17 - 27 mEq/L. The reference range was not used to interpret this result as normal/abnormal. [facility] CORD [id number] 11:45:41* Test Item Value Reference Range Interpretation Comme nts BASE EXCESS, CORD (test code = 5261976482) mEq/L AC PH, CORD (BEAKER) (test code = 1020960389) 7.18-7.38 PC02, CORD (test code = 1987736006) See_Comment [Automated messa ge] The system which generated this result transmitted reference range: 32 - 66 mmHg. The reference range was not used to interpret this result as normal/abnormal. PO2, CORD (test code = 1071439773) See_Comment [Automated messa ge] The system which generated this result transmitted reference range: 10 - 30 mmHg. The reference range was not used to interpret this result as normal/abnormal. BICARBONATE, CORD (test code = 3032578927) See_Comment [Automated messa ge] The system which generated this result transmitted reference range: 17 - 27 mEq/L. The reference range was not used to interpret this result as normal/abnormal. [facility] CORD [id number] 11:40:31* Test Item Value Reference Range Interpretation Comme nts VENOUS BASE EXCESS, CORD (test code = 5884278732) mEq/L VENOUS PH, CORD (test code = 1378618113) 7.25-7.45 VENOUS PC02, CORD (test code = 6295735324) See_Comment [Automated messa ge] The system which generated this result transmitted reference range: 27 - 49 mmHg. The reference range was not used to interpret this result as normal/abnormal. VENOUS PO2, CORD (test code = 2700675330) See_Comment [Automated me ssage] The system which generated this result transmitted reference range: 17 - 41 mmHg. The reference range was not used to interpret this result as normal/abnormal. VENOUS BICARBONATE, CORD (test code = 7906087520) See_Comment [Automated messa ge] The system which generated this result transmitted reference range: 12 - 29 mEq/L. The reference range was not used to interpret this result as normal/abnormal. [facility] CORD [id number] 11:40:31* Test Item Value Reference Range Interpretation Comme nts VENOUS BASE EXCESS, CORD (test code = 6410808003) mEq/L VENOUS PH, CORD (test code = 6873638111) 7.25-7.45 VENOUS PC02, CORD (test code = 3930969721) See_Comment [Automated messa ge] The system which generated this result transmitted reference range: 27 - 49 mmHg. The reference range was not used to interpret this result as normal/abnormal. VENOUS PO2, CORD (test code = 6842115644) See_Comment [Automated me ssage] The system which generated this result transmitted reference range: 17 - 41 mmHg. The reference range was not used to interpret this result as normal/abnormal. VENOUS BICARBONATE, CORD (test code = 4034764099) See_Comment [Automated messa ge] The system which generated this result transmitted reference range: 12 - 29 mEq/L. The reference range was not used to interpret this result as normal/abnormal. [facility] [id number] 22:19:36 * Test Item Value Reference Range Interpretation Comme nts HBsAg Semi-Quantitative (carlitos t code = 5195-3) Negative Negative [facility] B Surface [id number] 22:19:36 * Test Item Value Reference Range Interpretation Comme nts HBsAg Semi-Quantitative (carlitos t code = 5195-3) Negative Negative [facility] [id number] 21:46:44* Test Item Value Reference Range Interpretation Comme nts LDH (test code = 9189126931) 475 U/L 300-600 Lab Interpretation (test cod e = 86551-4) Normal [facility] 21:46:44* Test Item Value Reference Range Interpretation Comme nts CREATININE (test code = 0499320444) 0.62 mg/dL 0.50-1.04 eGFR (test code = 7970462262) mL/min/1.73m2 DANIKA (test code = DANIKA) Association of Glomerular Filtration Rate (GFR) and Staging of Kidney Disease* + + +- +| GFR (mL/min/1.73 m2) ?| With Kidney Damage ?| ?Without Kidney Damage+ ------+ ----+ ------+| ?>90 ?| ?Stage one ?| ? Normal ?+ -+ + -+| ?60-89 ?| ?Stage two ?| ? Decreased GFR ? + + +- +| ?30-59 ?| ?Stage three ?| ? Stage three ? + + +- +| ?15-29 ?| ?Stage four ? | ? Stage four ?+ -+ + -+| ?<15 (or dialysis) ? ?| ?Stage five ? | ? Stage five ?+ -+ + -+ *Each stage assumes the associated GFR level has been in effect for at least three months. ?Stages 1 to 5, with or without kidney disease, indicate chronic kidney disease. Notes: Determination of stages one and two (with eGFR >59mL/min/1.73 m2) requires estimation of kidney damage for at least three months as defined by structural or functional abnormalities of the kidney, manifested by either:Pathological abnormalities or Markers of kidney damage (including abnormalities in the composition of the blood or urine or abnormalities in imaging tests). [facility]ER[facility]([id number] 21:46:44* Test Item Value Reference Range Interpretation Comme [facility] ALTv (test code = 1742-6) 104 U/L 5-35 H Lab Interpretation (test cod e = 24147-9) [facility]normal [facility] (ASPARTATE AMINO TRANSFER)2021-09-18 21:46:44* Test Item Value Reference Range Interpretation Comme nts AST(SGOT) (test code = 2192886403) 45 U/L 13-40 H Lab Interpretation (test cod e = 88710-3) [facility]normal [facility]URIC [id number] 21:46:44* Test Item Value Reference Range Interpretation Comme nts URIC ACID (test code = 7848278386) 4.5 mg/dL 2.9-6.0 Lab Interpretation (test cod e = 77904-0) Normal [facility] CenterLACTATE [id number] 21:46:44* Test Item Value Reference Range Interpretation Comme nts LDH (test code = 4605218210) 475 U/L 300-600 Lab Interpretation (test cod e = 06800-8) Normal [facility]CREAT[facility]INE2022-[facility] 21:46:44* Test Item Value Reference Range Interpretation Comme [facility] CREATININE (test code = 9555357621) 0.62 mg/dL 0.50-1.04 eGFR (test code = 6163564580) mL/min/1.73m2 DANIKA (test code = DANIKA) Association of Glomerular Filtration Rate (GFR) and Staging of Kidney Disease* + + +- +| GFR (mL/min/1.73 m2) ?| With Kidney Damage ?| ?Without Kidney Damage+ ------+ ----+ ------+| ?>90 ?| ?Stage one ?| ? Normal ?+ -+ + -+| ?60-89 ?| ?Stage two ?| ? Decreased GFR ? + + +- +| ?30-59 ?| ?Stage three ?| ? Stage three ? + + +- +| ?15-29 ?| ?Stage four ? | ? Stage four ?+ -+ + -+| ?<15 (or dialysis) ? ?| ?Stage five ? | ? Stage five ?+ -+ + -+ *Each stage assumes the associated GFR level has been in effect for at least three months. ?Stages 1 to 5, with or without kidney disease, indicate chronic kidney disease. Notes: Determination of stages one and two (with eGFR >59mL/min/1.73 m2) requires estimation of kidney damage for at least three months as defined by structural or functional abnormalities of the kidney, manifested by either:Pathological abnormalities or Markers of kidney damage (including abnormalities in the composition of the blood or urine or abnormalities in imaging tests). [facility]([id number] 21:46:44* Test Item Value Reference Range Interpretation Comme nts ALTv (test code = 1742-6) 104 U/L 5-35 H Lab Interpretation (test cod e = 81816-3) [facility]normal [facility] (ASPARTATE AMINO TRANSFER)2021-09-18 21:46:44* Test Item Value Reference Range Interpretation Comme nts AST(SGOT) (test code = 6408367162) 45 U/L 13-40 H Lab Interpretation (test cod e = 95925-2) [facility]normal [facility]URIC [id number] 21:46:44* Test Item Value Reference Range Interpretation Comme nts URIC ACID (test code = 2363363236) 4.5 mg/dL 2.9-6.0 Lab Interpretation (test cod e = 16319-5) Normal [facility] CenterType and Screen - ONCE [id number] 21:25:33 * Test Item Value Reference Range Interpretation Comme nts ABO & RH (test code = 20) B POSITIVE Performed at [facility] Laboratory Services - [facility] Blood [address] Free: [phone] No. [id number] IAT (test code = 1185) Negative Performed at [facility] Laboratory Services - [facility] Blood [address] Free: [phone] No. [id number] [facility]Type [facility] - ONCE [id number] 21:25:33 * Test Item Value Reference Range Interpretation Comme nts ABO & RH (test code = 20) B POSITIVE Performed at [facility] Laboratory Services [facility] Blood [address] Free: [phone] No. [id number] IAT (test code = 1185) Negative Performed at [facility] B Laboratory Services - [facility] Blood [address] [place] [address]Ekzc Free: [phone] No. [id number] [facility] WITH [id number] 21:13:55* Test Item Value Reference Range Interpretation Comme nts WBC (test code = 6690-2) See_Comment H [Automated messa ge] The system which generated this result transmitted reference range: 4.30 - 11.10 10*3/?L. The reference range was not used to interpret this result as normal/abnormal. RBC (test code = 789-8) See_Comment L [Automated messa ge] The system which generated this result transmitted reference range: 3.93 - 5.25 10*6/?L. The reference range was not used to interpret this result as normal/abnormal. HGB (test code = 718-7) 9.8 g/dL 11.6-15.0 L HCT (test code = 4544-3) 31.0 % 35.7-45.2 L MCV (test code = 787-2) 85.2 fL 80.6-95.5 MCH (test code = 785-6) 26.9 pg 25.9-32.8 MCHC (test code = 786-4) 31.6 g/dL 31.6-35.1 RDW-SD (test code = 61034-1) 46.2 fL 39.0-49.9 RDW-CV (test code = 788-0) 14.8 % 12.0-15.5 PLT (test code = 777-3) See_Comment H [Automated messa ge] The system which generated this result transmitted reference range: 166 - 358 10*3/?L. The reference range was not used to interpret this result as normal/abnormal. MPV (test code = 89514-8) 10.9 fL 9.5-12.9 NRBC/100 WBC (test code = 7730551453) See_Comment [Automated me ssage] The system which generated this result transmitted reference range: 0.0 - 10.0 /100 WBCs. The reference range was not used to interpret this result as normal/abnormal. NRBC x10^3 (test code = 6196408043) <0.01 See_Comment [Automated messa ge] The system which generated this result transmitted reference range: 10*3/?L. The reference range was not used to interpret this result as normal/abnormal. GRAN MAT (NEUT) % (test code = 770-8) 70.4 % IMM GRAN % (test code = 8879464787) 0.70 % LYMPH % (test code = 736-9) 19.2 % MONO % (test code = 5905-5) 7.9 % EOS % (test code = 713-8) 1.5 % BASO % (test code = 706-2) 0.3 % GRAN MAT x10^3(ANC) (test code = 3536946152) 8.54 10*3/uL 1.88-7.09 H IMM GRAN x10^3 (test code = 2871771226) 0.08 10*3/uL 0.00-0.06 H LYMPH x10^3 (test code = 731-0) 2.33 10*3/uL 1.32-3.29 MONO x10^3 (test code = 742-7) 0.96 10*3/uL 0.33-0.92 H EOS x10^3 (test code = 711-2) 0.18 10*3/uL 0.03-0.39 BASO x10^3 (test code = 704-7) 0.04 10*3/uL 0.01-0.07 Lab Interpretation (test code = 06512-0) Abnormal [facility] WITH [id number] 21:13:55* Test Item Value Reference Range Interpretation Comme nts WBC (test code = 6690-2) See_Comment H [Automated messa ge] The system which generated this result transmitted reference range: 4.30 - 11.10 10*3/?L. The reference range was not used to interpret this result as normal/abnormal. RBC (test code = 789-8) See_Comment L [Automated messa ge] The system which generated this result transmitted reference range: 3.93 - 5.25 10*6/?L. The reference range was not used to interpret this result as normal/abnormal. HGB (test code = 718-7) 9.8 g/dL 11.6-15.0 L HCT (test code = 4544-3) 31.0 % 35.7-45.2 L MCV (test code = 787-2) 85.2 fL 80.6-95.5 MCH (test code = 785-6) 26.9 pg 25.9-32.8 MCHC (test code = 786-4) 31.6 g/dL 31.6-35.1 RDW-SD (test code = 35639-8) 46.2 fL 39.0-49.9 RDW-CV (test code = 788-0) 14.8 % 12.0-15.5 PLT (test code = 777-3) See_Comment H [Automated [place] ge] The system which generated this result transmitted reference range: 166 - 358 10*3/?L. The reference range was not used to interpret this result as normal/abnormal. MPV (test code = 71664-4) 10.9 fL 9.5-12.9 NRBC/100 WBC (test code = 8996174872) See_Comment [Automated DocSend ssage] The system which generated this result transmitted reference range: 0.0 - 10.0 /100 WBCs. The reference range was not used to interpret this result as normal/abnormal. NRBC x10^3 (test code = 5019279737) <0.01 See_Comment [Automated [place]] The system which generated this result transmitted reference range: 10*3/?L. The reference range was not used to interpret this result as normal/abnormal. GRAN MAT (NEUT) % (test code = 770-8) 70.4 % IMM GRAN % (test code = 2383990703) 0.70 % LYMPH % (test code = 736-9) 19.2 % MONO % (test code = 5905-5) 7.9 % EOS % (test code = 713-8) 1.5 % BASO % (test code = 706-2) 0.3 % GRAN MAT x10^3(ANC) (test code = 1527611182) 8.54 10*3/uL 1.88-7.09 H IMM GRAN x10^3 (test code = 0259945515) 0.08 10*3/uL 0.00-0.06 H LYMPH x10^3 (test code = 731-0) 2.33 10*3/uL 1.32-3.29 MONO x10^3 (test code = 742-7) 0.96 10*3/uL 0.33-0.92 H EOS x10^3 (test code = 711-2) 0.18 10*3/uL 0.03-0.39 BASO x10^3 (test code = 704-7) 0.04 10*3/uL 0.01-0.07 Lab Interpretation (test code = 99055-4) Abnormal [facility] CenterGC AND CHLAMYDIA AMPLIFIED, [id number] 00:00:00* Test Item Value Reference Range Interpretation Comme nts GONORRHEA, TMA (test code = 16377) NEGATIVE CHLAMYDIA, TMA (test code = 23981) NEGATIVE PAP TEST, THINPREP, [id number] 00:00:00* Test Item Value Reference Range Interpretation Comme nts SOURCE: (test code = 8001) Cervical/Endocervical SLIDES: (test code = 8011) 1 LMP: (test code = 8021) 02/20/2017 SPECIMEN ADEQUACY: (test code = 10602) (NOTE) INTERPRETATION: (test code = 96003) NO EPITHELIAL ABNORMALITY SEE BELOW MARKETING CONTENT COORDINATOR: (test code = 8101) AMARIS Tim (ASCP) LOCATION: (test code = 66435) (NOTE) CPT: (test code = 8140) (NOTE) GC AND CHLAMYDIA AMPLIFIED, [id number] 00:00:00* Test Item Value Reference Range Interpretation Comme nts GONORRHEA, TMA (test code = 80095) NEGATIVE CHLAMYDIA, TMA (test code = 28389) NEGATIVE Jero F AustinPAP TEST, THINPREP, [id number] 00:00:00* Test Item Value Reference Range Interpretation Comme nts SOURCE: (test code = 8001) Cervical/Endocervical SLIDES: (test code = 8011) 1 LMP: (test code = 8021) 02/20/2017 SPECIMEN ADEQUACY: (test code = 14409) (NOTE) INTERPRETATION: (test code = 11068) NO EPITHELIAL ABNORMALITY SEE BELOW MARKETING CONTENT COORDINATOR: (test code = 8101) Donna Ho, CT (ASCP) LOCATION: (test code = 15722) (NOTE) CPT: (test code = 8140) (NOTE) Jero Chairez AND CHLAMYDIA AMPLIFIED, [id number] 00:00:00* Test Item Value Reference Range Interpretation Comme nts GONORRHEA, TMA (test code = 18437) NEGATIVE CHLAMYDIA, TMA (test code = 96789) NEGATIVE Jero RodgersPAP TEST, THINPREP, [id number] 00:00:00* Test Item Value Reference Range Interpretation Comme nts SOURCE: (test code = 8001) Cervical/Endocervical SLIDES: (test code = 8011) 1 LMP: (test code = 8021) 02/20/2017 SPECIMEN ADEQUACY: (test code = 75920) (NOTE) INTERPRETATION: (test code = 92071) NO EPITHELIAL ABNORMALITY SEE BELOW MARKETING CONTENT COORDINATOR: (test code = 8101) AMARIS Tim (ASCP) LOCATION: (test code = 91039) (NOTE) CPT: (test code = 8140) (NOTE) Jero Chairez AND CHLAMYDIA AMPLIFIED, [id number] 00:00:00* Test Item Value Reference Range Interpretation Comme nts GONORRHEA, TMA (test code = 72303) NEGATIVE CHLAMYDIA, TMA (test code = 88314) NEGATIVE Jero RodgersPAP TEST, THINPREP, [id number] 00:00:00* Test Item Value Reference Range Interpretation Comme nts SOURCE: (test code = 8001) Cervical/Endocervical SLIDES: (test code = 8011) 1 LMP: (test code = 8021) 02/20/2017 SPECIMEN ADEQUACY: (test code = 28043) (NOTE) INTERPRETATION: (test code = 85236) NO EPITHELIAL ABNORMALITY SEE BELOW MARKETING CONTENT COORDINATOR: (test code = 8101) Donna Marcum CT (ASCP) LOCATION: (test code = 69150) (NOTE) CPT: (test code = 8140) (NOTE) Jero Rodriguez HEPATITIS [id number] 00:00:00* Test Item Value Reference Range Interpretation Comme nts HEPATITIS A IgM (test code = 96270) NON-REACTIVE HEPATITIS B CORE IgM (test c ode = 4644) NON-REACTIVE HEPATITIS B SURF AG (test co de = 2739) NON-REACTIVE HEPATITIS C ANTIBODY (test c ode = 4675) NON-REACTIVE INTERPRETATION HEPATITIS A: (test code = 2552) (NOTE) INTERPRETATION HEPATITIS B: (test code = 12099) (NOTE) INTERPRETATION HEPATITIS C: (test code = 62542) (NOTE) COMPREHENSIVE METABOLIC [id number] 00:00:00* Test Item Value Reference Range Interpretation Comme nts GLUCOSE (test code = 2217) 96 MG/DL BUN (test code = 2208) 6 MG/DL CREATININE (test code = 2214) 0.65 MG/DL eGFR AMER. (test cod e = 69594) 141 ML/MIN/1.73 eGFR NON- AMER. (test code = 84260) 122 ML/MIN/1.73 CALC BUN/CREAT (test code = 2235) 9 RATIO SODIUM (test code = 2231) 139 MEQ/L POTASSIUM (test code = 2228) 4.1 MEQ/L CHLORIDE (test code = 2215) 102 MEQ/L CARBON DIOXIDE (test code = 2206) 25 MEQ/L CALCIUM (test code = 2209) 9.0 MG/DL PROTEIN, TOTAL (test code = 2229) 7.3 G/DL ALBUMIN (test code = 2201) 3.8 G/DL CALC GLOBULIN (test code = 2240) 3.5 G/DL CALC A/G RATIO (test code = 2234) 1.1 RATIO BILIRUBIN, TOTAL (test code = 2207) 0.2 MG/DL ALKALINE PHOSPHATASE (test code = 2204) 89 U/L AST (test code = 2218) 22 U/L ALT (test code = 2219) 25 U/L LIPID [id number] 00:00:00* Test Item Value Reference Range Interpretation Comme nts CHOLESTEROL (test code = 2210) 221 MG/DL TRIGLYCERIDES (test code = 2232) 93 MG/DL HDL CHOLESTEROL (test code = 2220) 42 MG/DL CALC LDL CHOL (test code = 2237) 160 MG/DL RISK RATIO LDL/HDL (test cod e = 2238) 3.82 RATIO HPV HIGH RISK WITH GENOTYPE, [id number] 00:00:00* Test Item Value Reference Range Interpretation Comme nts HPV HIGH RISK INTERP (test c ode = 19711) NEGATIVE HPV 16 (test code = 91763) NEGATIVE HPV 18 (test code = 24747) NEGATIVE HPV, HR, OTHER GENOTYPES (te st code = 58306) NEGATIVE CBC W/AUTO [id number] 00:00:00* Test Item Value Reference Range Interpretation Comme nts WBC (test code = 1001) 7.5 K/UL RBC (test code = 1002) 4.37 M/UL HEMOGLOBIN (test code = 1003) 12.8 G/DL HEMATOCRIT (test code = 1004) 38.3 % MCV (test code = 1005) 87.6 fL MCH (test code = 1006) 29.3 PG MCHC (test code = 1007) 33.4 G/DL RDW (test code = 1038) 12.6 % NEUTROPHILS (test code = 1008) 54.7 % LYMPHOCYTES (test code = 1010) 34.7 % MONOCYTES (test code = 1011) 6.5 % EOSINOPHILS (test code = 1012) 3.6 % BASOPHILS (test code = 1013) 0.5 % PLATELET COUNT (test code = 1015) 367 K/UL HEMOGLOBIN [id number] 00:00:00* Test Item Value Reference Range Interpretation Comme [facility] HEMOGLOBIN A1c (test code = 88286) 5.2 % HIV AB/AG COMBO RFLX [id number] 00:00:00* Test Item Value Reference Range Interpretation Comme [facility] HIV 1/2 4TH GEN, RFLX CONF ( test code = 3514) NON-REACTIVE [id number] 00:00:00* Test Item Value Reference Range Interpretation Comme [facility] RPR RESULT (test code = 3501) NON-REACTIVE RPR TITER (test code = 3500) NOT INDIC. TITER [id number] 00:00:00* Test Item Value Reference Range Interpretation Comme [facility] TSH (test code = 2821) 0.497 UIU/ML VITAMIN [id number] 00:00:00* Test Item Value Reference Range Interpretation Comme [facility] VITAMIN B-12 (test code = 2840) 549 PG/ML VITAMIN D, 25 [id number] 00:00:00* Test Item Value Reference Range Interpretation Comme [facility] VITAMIN D, 25 OH (test code = 4958) 12 NG/ML ACUTE HEPATITIS [id number] 00:00:00* Test Item Value Reference Range Interpretation Comme nts HEPATITIS A IgM (test code = 24646) NON-REACTIVE HEPATITIS B CORE IgM (test c ode = 4644) NON-REACTIVE HEPATITIS B SURF AG (test co de = 2739) NON-REACTIVE HEPATITIS C ANTIBODY (test c ode = 4675) NON-REACTIVE INTERPRETATION HEPATITIS A: (test code = 2552) (NOTE) INTERPRETATION HEPATITIS B: (test code = 14692) (NOTE) INTERPRETATION HEPATITIS C: (test code = 46359) (NOTE) Jero RodgersHERPES SIMPLEX VIRUS IGG AND [id number] 00:00:00* Test Item Value Reference Range Interpretation Comme nts HERPES SIMPLEX 1 IgG (test c ode = 08118) >5.00 INDEX HERPES SIMPLEX 2 IgG (test c ode = 50696) >5.00 INDEX HERPES SIMPLEX IgM (test cod e = 71437) 0.61 INDEX COMPREHENSIVE METABOLIC [id number] 00:00:00* Test Item Value Reference Range Interpretation Comme nts GLUCOSE (test code = 2217) 96 MG/DL BUN (test code = 2208) 6 MG/DL CREATININE (test code = 2214) 0.65 MG/DL eGFR AMER. (test cod e = 53252) 141 ML/MIN/1.73 eGFR NON- AMER. (test code = 35138) 122 ML/MIN/1.73 CALC BUN/CREAT (test code = 2235) 9 RATIO SODIUM (test code = 2231) 139 MEQ/L POTASSIUM (test code = 2228) 4.1 MEQ/L CHLORIDE (test code = 2215) 102 MEQ/L CARBON DIOXIDE (test code = 2206) 25 MEQ/L CALCIUM (test code = 2209) 9.0 MG/DL PROTEIN, TOTAL (test code = 2229) 7.3 G/DL ALBUMIN (test code = 2201) 3.8 G/DL CALC GLOBULIN (test code = 2240) 3.5 G/DL CALC A/G RATIO (test code = 2234) 1.1 RATIO BILIRUBIN, TOTAL (test code = 2207) 0.2 MG/DL ALKALINE PHOSPHATASE (test code = 2204) 89 U/L AST (test code = 2218) 22 U/L ALT (test code = 2219) 25 U/L Jero Odessa RodgersLIPID [id number] 00:00:00* Test Item Value Reference Range Interpretation Comme nts CHOLESTEROL (test code = 2210) 221 MG/DL TRIGLYCERIDES (test code = 2232) 93 MG/DL HDL CHOLESTEROL (test code = 2220) 42 MG/DL CALC LDL CHOL (test code = 2237) 160 MG/DL RISK RATIO LDL/HDL (test cod e = 2238) 3.82 RATIO Jero RodgersHPV HIGH RISK WITH GENOTYPE, [id number] 00:00:00* Test Item Value Reference Range Interpretation Comme nts HPV HIGH RISK INTERP (test c ode = 78983) NEGATIVE HPV 16 (test code = 16907) NEGATIVE HPV 18 (test code = 38851) NEGATIVE HPV, HR, OTHER GENOTYPES (te st code = 78271) NEGATIVE Jero RodgersCBC W/AUTO [id number] 00:00:00* Test Item Value Reference Range Interpretation Comme nts WBC (test code = 1001) 7.5 K/UL RBC (test code = 1002) 4.37 M/UL HEMOGLOBIN (test code = 1003) 12.8 G/DL HEMATOCRIT (test code = 1004) 38.3 % MCV (test code = 1005) 87.6 fL MCH (test code = 1006) 29.3 PG MCHC (test code = 1007) 33.4 G/DL RDW (test code = 1038) 12.6 % NEUTROPHILS (test code = 1008) 54.7 % LYMPHOCYTES (test code = 1010) 34.7 % MONOCYTES (test code = 1011) 6.5 % EOSINOPHILS (test code = 1012) 3.6 % BASOPHILS (test code = 1013) 0.5 % PLATELET COUNT (test code = 1015) 367 K/UL Jero RodgersHEMOGLOBIN [id number] 00:00:00* Test Item Value Reference Range Interpretation Comme nts HEMOGLOBIN A1c (test code = 10018) 5.2 % Jero RodgersHIV AB/AG COMBO RFLX [id number] 00:00:00* Test Item Value Reference Range Interpretation Comme nts HIV 1/2 4TH GEN, RFLX CONF ( test code = 3514) NON-REACTIVE Jero Saxena [id number] 00:00:00* Test Item Value Reference Range Interpretation Comme nts RPR RESULT (test code = 3501) NON-REACTIVE RPR TITER (test code = 3500) NOT INDIC. TITER Jero [id number] 00:00:00* Test Item Value Reference Range Interpretation Comme roman TSH (test code = 2821) 0.497 UIU/ML Jero RodgersVITAMIN [id number] 00:00:00* Test Item Value Reference Range Interpretation Comme nts VITAMIN B-12 (test code = 2840) 549 PG/ML Jero RodgersVITAMIN D, 25 [id number] 00:00:00* Test Item Value Reference Range Interpretation Comme roman VITAMIN D, 25 OH (test code = 4958) 12 NG/ML Jero RodgersHERPES SIMPLEX VIRUS IGG AND [id number] 00:00:00* Test Item Value Reference Range Interpretation Comme nts HERPES SIMPLEX 1 IgG (test c ode = 90556) >5.00 INDEX HERPES SIMPLEX 2 IgG (test c ode = 55202) >5.00 INDEX HERPES SIMPLEX IgM (test cod e = 22687) 0.61 INDEX Jero RodgersACUTE HEPATITIS [id number] 00:00:00* Test Item Value Reference Range Interpretation Comme nts HEPATITIS A IgM (test code = 45754) NON-REACTIVE HEPATITIS B CORE IgM (test c ode = 4644) NON-REACTIVE HEPATITIS B SURF AG (test co de = 2739) NON-REACTIVE HEPATITIS C ANTIBODY (test c ode = 4675) NON-REACTIVE INTERPRETATION HEPATITIS A: (test code = 2552) (NOTE) INTERPRETATION HEPATITIS B: (test code = 32712) (NOTE) INTERPRETATION HEPATITIS C: (test code = 40201) (NOTE) Jero RodgersCOMPREHENSIVE METABOLIC [id number] 00:00:00* Test Item Value Reference Range Interpretation Comme roman GLUCOSE (test code = 2217) 96 MG/DL BUN (test code = 2208) 6 MG/DL CREATININE (test code = 2214) 0.65 MG/DL eGFR AMER. (test cod e = 28990) 141 ML/MIN/1.73 eGFR NON- AMER. (test code = 30571) 122 ML/MIN/1.73 CALC BUN/CREAT (test code = 2235) 9 RATIO SODIUM (test code = 2231) 139 MEQ/L POTASSIUM (test code = 2228) 4.1 MEQ/L CHLORIDE (test code = 2215) 102 MEQ/L CARBON DIOXIDE (test code = 2206) 25 MEQ/L CALCIUM (test code = 2209) 9.0 MG/DL PROTEIN, TOTAL (test code = 2229) 7.3 G/DL ALBUMIN (test code = 2201) 3.8 G/DL CALC GLOBULIN (test code = 2240) 3.5 G/DL CALC A/G RATIO (test code = 2234) 1.1 RATIO BILIRUBIN, TOTAL (test code = 2207) 0.2 MG/DL ALKALINE PHOSPHATASE (test code = 2204) 89 U/L AST (test code = 2218) 22 U/L ALT (test code = 2219) 25 U/L Jero Saxena VishalLIPID [id number] 00:00:00* Test Item Value Reference Range Interpretation Comme nts CHOLESTEROL (test code = 2210) 221 MG/DL TRIGLYCERIDES (test code = 2232) 93 MG/DL HDL CHOLESTEROL (test code = 2220) 42 MG/DL CALC LDL CHOL (test code = 2237) 160 MG/DL RISK RATIO LDL/HDL (test cod e = 2238) 3.82 RATIO Jerowilmar RodgersHPV HIGH RISK WITH GENOTYPE, [id number] 00:00:00* Test Item Value Reference Range Interpretation Comme nts HPV HIGH RISK INTERP (test c ode = 88827) NEGATIVE HPV 16 (test code = 36727) NEGATIVE HPV 18 (test code = 63555) NEGATIVE HPV, HR, OTHER GENOTYPES (te st code = 66400) NEGATIVE Jero Saxena VishalCBC W/AUTO [id number] 00:00:00* Test Item Value Reference Range Interpretation Comme nts WBC (test code = 1001) 7.5 K/UL RBC (test code = 1002) 4.37 M/UL HEMOGLOBIN (test code = 1003) 12.8 G/DL HEMATOCRIT (test code = 1004) 38.3 % MCV (test code = 1005) 87.6 fL MCH (test code = 1006) 29.3 PG MCHC (test code = 1007) 33.4 G/DL RDW (test code = 1038) 12.6 % NEUTROPHILS (test code = 1008) 54.7 % LYMPHOCYTES (test code = 1010) 34.7 % MONOCYTES (test code = 1011) 6.5 % EOSINOPHILS (test code = 1012) 3.6 % BASOPHILS (test code = 1013) 0.5 % PLATELET COUNT (test code = 1015) 367 K/UL Jero RodgersHEMOGLOBIN [id number] 00:00:00* Test Item Value Reference Range Interpretation Comme nts HEMOGLOBIN A1c (test code = 08783) 5.2 % Jero RodgersHIV AB/AG COMBO RFLX [id number] 00:00:00* Test Item Value Reference Range Interpretation Comme nts HIV 1/2 4TH GEN, RFLX CONF ( test code = 3514) NON-REACTIVE Jero [id number] 00:00:00* Test Item Value Reference Range Interpretation Comme nts RPR RESULT (test code = 3501) NON-REACTIVE RPR TITER (test code = 3500) NOT INDIC. TITER Jero [id number] 00:00:00* Test Item Value Reference Range Interpretation Comme nts TSH (test code = 2821) 0.497 UIU/ML Jero RodgersVITAMIN [id number] 00:00:00* Test Item Value Reference Range Interpretation Comme nts VITAMIN B-12 (test code = 2840) 549 PG/ML Jero RodgersVITAMIN D, 25 [id number] 00:00:00* Test Item Value Reference Range Interpretation Comme nts VITAMIN D, 25 OH (test code = 4958) 12 NG/ML Jero RodgersHERPES SIMPLEX VIRUS IGG AND [id number] 00:00:00* Test Item Value Reference Range Interpretation Comme nts HERPES SIMPLEX 1 IgG (test c ode = 95746) >5.00 INDEX HERPES SIMPLEX 2 IgG (test c ode = 42180) >5.00 INDEX HERPES SIMPLEX IgM (test cod e = 70226) 0.61 INDEX Jero RodgersACUTE HEPATITIS [id number] 00:00:00* Test Item Value Reference Range Interpretation Comme nts HEPATITIS A IgM (test code = 42909) NON-REACTIVE HEPATITIS B CORE IgM (test c ode = 4644) NON-REACTIVE HEPATITIS B SURF AG (test co de = 2739) NON-REACTIVE HEPATITIS C ANTIBODY (test c ode = 4632) NON-REACTIVE INTERPRETATION HEPATITIS A: (test code = 2552) (NOTE) INTERPRETATION HEPATITIS B: (test code = 72713) (NOTE) INTERPRETATION HEPATITIS C: (test code = 82867) (NOTE) Jero RodgersCOMPREHENSIVE METABOLIC [id number] 00:00:00* Test Item Value Reference Range Interpretation Comme nts GLUCOSE (test code = 2217) 96 MG/DL BUN (test code = 2208) 6 MG/DL CREATININE (test code = 2214) 0.65 MG/DL eGFR AMER. (test cod e = 62777) 141 ML/MIN/1.73 eGFR NON- AMER. (test code = 05158) 122 ML/MIN/1.73 CALC BUN/CREAT (test code = 2235) 9 RATIO SODIUM (test code = 2231) 139 MEQ/L POTASSIUM (test code = 2228) 4.1 MEQ/L CHLORIDE (test code = 2215) 102 MEQ/L CARBON DIOXIDE (test code = 2206) 25 MEQ/L CALCIUM (test code = 2209) 9.0 MG/DL PROTEIN, TOTAL (test code = 2229) 7.3 G/DL ALBUMIN (test code = 2201) 3.8 G/DL CALC GLOBULIN (test code = 2240) 3.5 G/DL CALC A/G RATIO (test code = 2234) 1.1 RATIO BILIRUBIN, TOTAL (test code = 2207) 0.2 MG/DL ALKALINE PHOSPHATASE (test code = 2204) 89 U/L AST (test code = 2218) 22 U/L ALT (test code = 2219) 25 U/L Jero RodgersHPV HIGH RISK WITH GENOTYPE, [id number] 00:00:00* Test Item Value Reference Range Interpretation Comme nts HPV HIGH RISK INTERP (test c ode = 93311) NEGATIVE HPV 16 (test code = 10606) NEGATIVE HPV 18 (test code = 91867) NEGATIVE HPV, HR, OTHER GENOTYPES (te st code = 63718) NEGATIVE Jero Saxena AustinLIPID [id number] 00:00:00* Test Item Value Reference Range Interpretation Comme nts CHOLESTEROL (test code = 2210) 221 MG/DL TRIGLYCERIDES (test code = 2232) 93 MG/DL HDL CHOLESTEROL (test code = 2220) 42 MG/DL CALC LDL CHOL (test code = 2237) 160 MG/DL RISK RATIO LDL/HDL (test cod e = 2238) 3.82 RATIO Jero RodgersCBC W/AUTO [id number] 00:00:00* Test Item Value Reference Range Interpretation Comme nts WBC (test code = 1001) 7.5 K/UL RBC (test code = 1002) 4.37 M/UL HEMOGLOBIN (test code = 1003) 12.8 G/DL HEMATOCRIT (test code = 1004) 38.3 % MCV (test code = 1005) 87.6 fL MCH (test code = 1006) 29.3 PG MCHC (test code = 1007) 33.4 G/DL RDW (test code = 1038) 12.6 % NEUTROPHILS (test code = 1008) 54.7 % LYMPHOCYTES (test code = 1010) 34.7 % MONOCYTES (test code = 1011) 6.5 % EOSINOPHILS (test code = 1012) 3.6 % BASOPHILS (test code = 1013) 0.5 % PLATELET COUNT (test code = 1015) 367 K/UL Jero RodgersHEMOGLOBIN [id number] 00:00:00* Test Item Value Reference Range Interpretation Comme nts HEMOGLOBIN A1c (test code = 87533) 5.2 % Jero RodgersHIV AB/AG COMBO RFLX [id number] 00:00:00* Test Item Value Reference Range Interpretation Comme nts HIV 1/2 4TH GEN, RFLX CONF ( test code = 3514) NON-REACTIVE Jero [id number] 00:00:00* Test Item Value Reference Range Interpretation Comme nts RPR RESULT (test code = 3501) NON-REACTIVE RPR TITER (test code = 3500) NOT INDIC. TITER Jero [id number] 00:00:00* Test Item Value Reference Range Interpretation Comme nts TSH (test code = 2821) 0.497 UIU/ML Jero RodgersVITAMIN [id number] 00:00:00* Test Item Value Reference Range Interpretation Comme nts VITAMIN B-12 (test code = 2840) 549 PG/ML Jero RodgersVITAMIN D, 25 [id number] 00:00:00* Test Item Value Reference Range Interpretation Comme [facility] VITAMIN D, 25 OH (test code = 4958) 12 NG/ML Jero RodgersHERPES SIMPLEX VIRUS IGG AND [id number] 00:00:00* Test Item Value Reference Range Interpretation Comme nts HERPES SIMPLEX 1 IgG (test c ode = 83765) >5.00 INDEX HERPES SIMPLEX 2 IgG (test c ode = 21825) >5.00 INDEX HERPES SIMPLEX IgM (test cod e = 21262) 0.61 INDEX Jero Rodgers Notes Date/Time Note Provider Source Jero Gage [facility]2024-06-18 00:00:[address] [facility]2024-05-01 00:00:[address] [facility]"
[2024-12-05] MEDS ORDERED: ONDANSETRON 4 MG (ODT) TAB ONE (23:31)
[2024-12-06] MEDS ORDERED: DICYCLOMINE HCL 20 MG/2 ML AMP IM ONE (00:35)
--- NOTE | 2024-12-06 01:06 | EDPHYS ---
Physician Documentation [facility] Name: Ritu Fallon Age: 34 yrs Sex: Female : 1990 Arrival Date: 12/05/2024 Time: 22:51 Bed 24 Private MD: ED Physician Bautista Meléndez HPI: 12/05 23:44 This 34 yrs old Black Female presents to ER via Ambulatory with complaints of sb4 Nausea/Vomiting, Abdominal Pain. 23:44 The patient presents to the emergency department with nausea, vomiting. Onset: The sb4 symptoms/episode began/occurred 2 day(s) ago. Possible causes: sick contacts, by family. Associated signs and symptoms: Pertinent negatives: abdominal pain, dysuria, fever. Historical: - Allergies: 23:23 Iodine; br2 23:23 Tylenol-Codeine #3; br2 - PMHx: 23:23 Anxiety; Depression; Hypertension; br2 - PSHx: 23:23 section; Cholecystectomy; br2 - Immunization history:: Adult Immunizations up to date. - Infectious Disease History:: Denies. - Social history:: Smoking status: Patient reports the use of cigarette tobacco products, smokes one pack cigarettes per day. Patient/guardian denies using alcohol, street drugs. ROS: 23:46 Constitutional: Negative for fever, chills, and weight loss, sb4 23:46 Abdomen/GI: Positive for nausea and vomiting, 23:46 All other systems are negative, Exam: 23:46 Head/Face: Normocephalic, atraumatic. Eyes: Extra-ocular motions intact. Periorbital sb4 areas with no swelling, redness, or edema. ENT: Mucous membranes moist. Respiratory: No increased work of breathing, no retractions or nasal flaring. Abdomen/GI: Soft, non-tender, no distension. Skin: Warm, dry with normal turgor. Normal color with no rashes, no lesions, and no evidence of cellulitis. 23:46 Constitutional: The patient appears alert, awake, obese, vomiting 23:46 Cardiovascular: Rate: tachycardic, Rhythm: regular, Vital Signs: 23:20 BP 191 / 103; Pulse 106; Resp 20; Temp 98.3(O); Pulse Ox 97% on R/A; Weight 127.91 kg; br2 Height 5 ft. 7 in. ; Pain 5/10; 23:45 BP 173 / 109; Pulse 104; Resp 16; Pulse Ox 99% on R/A; jb4 12/06 01:00 BP 162 / 105; Pulse 99; Resp 16; Pulse Ox 100% on R/A; jb4 12/05 23:20 Body Mass Index 44.17 (127.91 kg, 170.18 cm) br2 12/05 23:20 Pain Scale: Adult br2 MDM: 12/05 23:09 Medical Screening Exam initiated sb4 23:47 Data reviewed: vital signs, nurses notes, and as a result, I will discharge patient. sb4 Test considered but Not performed: Labs: patient refused. 12/06 00:27 Order name: PO challenge; Complete Time: 00:36 sb4 Administered Medications: 23:29 CANCELLED (Patient Refused): ondansetron 4 mg IVP once; over 2 minutes sb4 23:29 CANCELLED (Patient Refused): ns 0.9% 1000 ml IV at 1 bolus Per protocol; to be given as sb4 a bolus over 60 minutes 23:34 Drug: Ondansetron Oral Disintegrating Tablet Oral Disintegrating Tablet 4 mg PO once jb4 Route: PO; 12/06 00:00 Follow up: Response: No adverse reaction; Marked relief of symptoms; Nausea is decreasedjb4 00:36 Drug: Dicyclomine IM 20 mg IM once Route: IM; Site: left gluteus; jb4 01:25 Follow up: Response: No adverse reaction; Marked relief of symptoms; Pain is decreased jb4 Disposition: 02:07 Co-signature as Attending Physician, Bautista Meléndez MD I agree with the assessment sp4 and plan of care. I reviewed the patient's care provided by the Advanced Practice Provider and agree with the diagnosis and treatment plan. Disposition Summary: 12/06/24 01:06 Discharge Ordered Notes: Location: Home sb4 Problem: new sb4 Symptoms: have improved sb4 Condition: Stable sb4 Diagnosis - Viral gastroenteritis sb4 Followup: sb4 - With: Emergency Department - When: As needed - Reason: Trouble breathing, Worsening of condition Discharge Instructions: - Discharge Summary Sheet sb4 - Viral Gastroenteritis, Adult, [id number] sb4 Forms: - Patient Portal Instructions sb4 - Leadership Thank You Letter sb4 Prescriptions: - ondansetron 4 mg Oral Tablet,disintegrating - take 1 tablet ORAL route every 4-6 hours As needed; 10 tablet; Refills: 0, sb4 Product Selection Permitted - dicyclomine 10 mg Oral capsule - take 1 capsule ORAL route 3 times per day PRN abdominal pain; 15 capsule; sb4 Refills: 0, Product Selection Permitted Signatures: Dispatcher [employer] EDMS Francisco Can, RN RN jb4 Vane Javed PA-C PA-C sb4 Bautista Meléndez MD MD sp4 Lesli Clifton RN RN br2 Corrections: (The following items were deleted from the chart) 12/05 23:29 23:27 Ondansetron IVP 4 mg IVP once; over 2 minutes ordered. sb4 sb4 : 23:27 NS 0.9% IV 1000 ml IV at 1 bolus Per protocol; to be given as a bolus over 60 sb4 minutes ordered. sb4 : 23:27 IV Saline Lock ordered. sb4 sb4 :29 23:27 Labs collected and sent ordered. sb4 sb4 23:37 23:27 Test, Urine+UC.LAB.BRZ ordered. EDMS EDMS 23:37 23:27 Urinalysis+U.LAB.BRZ ordered. EDMS EDMS 23:38 23:27 CBC+H.LAB.BRZ ordered. EDMS EDMS 23:38 23:27 COMPREHENSIVE METABOLIC PANEL+C.LAB.BRZ ordered. EDMS EDMS 23:38 23:27 LIPASE+C.LAB.BRZ ordered. EDMS EDMS
--- NOTE | 2024-12-06 01:06 | ER ---
Nurse's Notes [facility] Name: Ritu Fallon Age: 34 yrs Sex: Female : 1990 Arrival Date: 12/05/2024 Time: 22:51 Bed 24 Private MD: Diagnosis: Viral gastroenteritis Presentation: 12/05 23:20 Chief complaint: Patient states: ABDOMINAL PAIN NAUSEA/VOMITING, CHILLS. Coronavirus br2 screen: Client denies travel out of the [place] in the last 14 days. Ebola Screen: Patient denies exposure to infectious person. Initial Sepsis Screen: Does the patient meet any 2 criteria? HR > 90 bpm. Does the patient have a suspected source of infection? No. Patient's initial sepsis screen is negative. Risk Assessment: Do you want to hurt yourself or someone else? Patient reports no desire to harm self or others. Onset of symptoms was December 03, 2024. 23:20 Method Of Arrival: Ambulatory br2 23:20 Acuity: DYLAN 3 br2 Triage Assessment: 23:23 General: Appears in no apparent distress. comfortable, Behavior is calm, cooperative. br2 Pain: Complains of pain in umbilical area, right upper quadrant, left upper quadrant, right lower quadrant and left lower quadrant Pain currently is 5 out of 10 on a pain scale. GI: Reports lower abdominal pain, upper abdominal pain, nausea, vomiting. Historical: - Allergies: 23:23 Iodine; br2 23:23 Tylenol-Codeine #3; br2 - PMHx: 23:23 Anxiety; Depression; Hypertension; br2 - PSHx: 23:23 section; Cholecystectomy; br2 - Immunization history:: Adult Immunizations up to date. - Infectious Disease History:: Denies. - Social history:: Smoking status: Patient reports the use of cigarette tobacco products, smokes one pack cigarettes per day. Patient/guardian denies using alcohol, street drugs. Screenin/25 01:00 [facility] ED Fall Risk Assessment (Adult) History of falling in the last 3 months, jb4 including since admission No falls in past 3 months (0 pts) Confusion or Disorientation No (0 pts) Intoxicated or Sedated No (0 pts) Impaired Gait No (0 pts) Mobility Assist Device Used No (0 pt) Altered Elimination No (0 pt) Score/Fall Risk Level 0 - 2 = Low Risk Oriented to surroundings, Maintained a safe environment. Abuse screen: Denies threats or abuse. Nutritional screening: No deficits noted. Tuberculosis screening: No symptoms or risk factors identified. Assessment: 12/05 23:45 Reassessment: Patient appears in no apparent distress at this time. Patient and/or jb4 family updated on plan of care and expected duration. Pain level reassessed. Patient is alert, oriented x 3, equal unlabored respirations, skin warm/dry/pink. Provider notified of blood pressure, no new orders given Patient states feeling better. 12/06 01:00 Reassessment: Patient appears in no apparent distress at this time. Patient and/or jb4 family updated on plan of care and expected duration. Pain level reassessed. Patient is alert, oriented x 3, equal unlabored respirations, skin warm/dry/pink. Vital Signs: 12/05 23:20 BP 191 / 103; Pulse 106; Resp 20; Temp 98.3(O); Pulse Ox 97% on R/A; Weight 127.91 kg; br2 Height 5 ft. 7 in. ; Pain 5/10; 23:45 BP 173 / 109; Pulse 104; Resp 16; Pulse Ox 99% on R/A; jb4 12/06 01:00 BP 162 / 105; Pulse 99; Resp 16; Pulse Ox 100% on R/A; jb4 12/05 23:20 Body Mass Index 44.17 (127.91 kg, 170.18 cm) br2 12/05 23:20 Pain Scale: Adult br2 ED Course: 12/05 22:54 Patient arrived in ED. gm2 23:08 Francisco Can, [facility] is Primary Nurse. jb4 23:09 Vane Javed PA-C is PHCP. sb4 23:09 Bautista Meléndez MD is Attending Physician. sb4 23:23 Triage completed. br2 23:23 Arm band placed on. br2 12/06 01:00 Patient has correct armband on for positive identification. Bed in low position. Call jb4 light in reach. Side rails up X 1. Provided Education on: discharge instructions.. 01:00 No provider procedures requiring assistance completed. Patient did not have IV access jb4 during this emergency room visit. Administered Medications: 12/05 23:29 CANCELLED (Patient Refused): ondansetron 4 mg IVP once; over 2 minutes sb4 23:29 CANCELLED (Patient Refused): ns 0.9% 1000 ml IV at 1 bolus Per protocol; to be given as sb4 a bolus over 60 minutes 23:34 Drug: Ondansetron Oral Disintegrating Tablet Oral Disintegrating Tablet 4 mg PO once jb4 Route: PO; 12/06 00:00 Follow up: Response: No adverse reaction; Marked relief of symptoms; Nausea is decreasedjb4 00:36 Drug: Dicyclomine IM 20 mg IM once Route: IM; Site: left gluteus; jb4 01:25 Follow up: Response: No adverse reaction; Marked relief of symptoms; Pain is decreased jb4 Medication: 01:00 VIS not applicable for this client. jb4 Outcome: 01:06 Discharge ordered by . sb4 01:25 Discharged to home ambulatory, with family, jb4 01:25 Condition: stable 01:25 Discharge instructions given to patient, Instructed on discharge instructions, follow up and referral plans. medication usage, Demonstrated understanding of instructions, follow-up care, medications, Prescriptions given X 2, 01:27 Patient left the ED. jb4 Signatures: Francisco Can, RN RN jb4 Vane Javed PABriseida PA-C sb4 Tessa Mckeon gm2 Lesli Clifton, RN RN br2
[2024-12-06 02:05] VITALS: TEMP 98.3
[2024-12-06 02:08] VITALS: BP 162/105; O2SAT 100
== END 2024-12-06 01:27 | disposition home or self-care (01) ==
LOC: ER 22:51
DX: A08.4 Viral intestinal infection, unspecified (principal); F17.210 Nicotine dependence, cigarettes, uncomplicated
CPT/HCPCS: 96372; 99284; Q0162; J0500